=== PATIENT | male | born 1960 ===

== ENCOUNTER → 2020-06-16 14:42 | Outpatient (BNVA) | payer OTHER, SELFPAY | PROVIDERS: Visit Provider Urology | DX: E29.1 Testicular hypofunction (principal); Z71.89 Other specified counseling | CPT/HCPCS: 96372; 99213 ==

== ENCOUNTER → 2020-06-23 12:56 | Outpatient (BNVA) | payer OTHER, SELFPAY | PROVIDERS: Visit Provider Urology | DX: Z76.89 Persons encountering health services in other specified circumstances (principal) ==

== ENCOUNTER → 2020-07-06 08:23 | Outpatient (BNVA) | payer OTHER, SELFPAY | PROVIDERS: Visit Provider Urology | DX: Z76.89 Persons encountering health services in other specified circumstances (principal) ==

== ENCOUNTER → 2020-07-10 14:46 | Outpatient (BNVA) | payer OTHER, SELFPAY | PROVIDERS: Visit Provider Urology | DX: Z76.89 Persons encountering health services in other specified circumstances (principal) | CPT/HCPCS: 99212 ==

== ENCOUNTER → 2020-07-31 08:31 | Outpatient (BNVA) | payer OTHER, SELFPAY | PROVIDERS: PCP Family Medicine; Visit Provider Urology | DX: Z76.89 Persons encountering health services in other specified circumstances (principal) | CPT/HCPCS: 99212 ==

== ENCOUNTER 2020-09-14 09:24 | Outpatient (REF) | payer OTHER, SELFPAY ==
[2020-09-18 10:28] LABS: Testosterone, Total 1350 ng/dL (250-1100)
== END 2020-09-14 09:25 | disposition home or self-care (01) ==
LOC: HO.10HDL 09:24
PROVIDERS: Visit Provider Urology
DX: E29.1 Testicular hypofunction (principal)
CPT/HCPCS: 36415; 84403

== ENCOUNTER → 2020-10-02 08:48 | Outpatient (BNVA) | payer OTHER, SELFPAY | PROVIDERS: PCP Family Medicine; Visit Provider Urology | DX: Z13.89 Encounter for screening for other disorder (principal) | CPT/HCPCS: Q3014 ==

== ENCOUNTER 2020-12-22 08:04 | Outpatient (REF) | payer OTHER, SELFPAY ==
--- NOTE | ~2020-12-22 | XR_ITS ---
EXAMINATION: PRE-MRI ORBITS. CLINICAL INFORMATION: Status post bilateral ear surgery. Rule out foreign body. COMPARISON: None TECHNIQUE: 3 views FINDINGS: There is no radiopaque metallic foreign body seen in the orbits. Bilateral paranasal sinuses and mastoid air cells are well-aerated and clear. No maxillofacial or nasal abnormality seen. XR/XR pre mri screening IMPRESSION: No metallic radiopaque foreign body seen in the orbits.
--- NOTE | ~2020-12-22 | MR_ITS ---
EXAMINATION: MRI OF THE BRAIN WITHOUT CONTRAST CLINICAL INFORMATION: Post concussion syndrome with dizziness and giddiness. COMPARISON: MRI scan of the brain 04/25/2014. MRI scan of the cervical spine 02/16/2013. TECHNIQUE: MRI of the brain was obtained using routine sequences without contrast. FINDINGS: No diffusion abnormalities are identified to suggest an acute or subacute infarct. No mass effect or midline shift is seen. There is mild commensurate prominence the ventricles and sulci consistent with diffuse volume loss. The study redemonstrates multiple areas of increased T2 and place signal in the periventricular and subcortical white matter, in a similar distribution compared to prior imaging. A focus in the mid left centrum semiovale body is less intense compared to prior imaging, but there appears to be new foci in the bilateral basal ganglia. None of these lesions demonstrate restricted diffusion. The corpus callosum has good volume. No extra-axial fluid collections are seen. The brainstem and cerebellum are normal. No pathologic magnetic susceptibility artifact is identified on the gradient refocused acquisition. The craniovertebral junction, marrow signal, and midline structures are normal. The study demonstrates a mildly prominent lymph node in the left neck. There are worsening spondylitic changes in the upper cervical spine with prominent anterior marginal osteophytes at C2-C3 and C3-C4. The major intracranial flow-voids at the level of the [place] are preserved. The dural venous sinus flow-voids are maintained. The mastoid air cells and paranasal sinuses are well-aerated. MR/MR head/brain wo con IMPRESSION: 1. There are no acute bleeds or infarcts. No masses are demonstrated. 2. The study redemonstrates multiple areas of increased T2 and FLAIR signal in the periventricular and subcortical white matter as described above. Some foci are less prominent compared to prior imaging, but this may be due to technical slice selection factors. The findings are most consistent with chronic microvascular ischemic changes, but as previously suggested, demyelination cannot be excluded. 3. There are spondylitic changes in the visualized upper cervical spine.
== END 2020-12-22 08:05 | disposition home or self-care (01) ==
LOC: HO.MRI 08:04
PROVIDERS: Visit Provider Emergency Medicine
DX: F07.81 Postconcussional syndrome (principal); R42 Dizziness and giddiness; Z98.890 Other specified postprocedural states
CPT/HCPCS: 70551

== ENCOUNTER 2021-02-10 07:45 | Outpatient (REF) | payer OTHER, SELFPAY ==
--- NOTE | ~2021-02-10 | XR_ITS ---
EXAMINATION: XR SHOULDER, RIGHT XR ELBOW, RIGHT CLINICAL INFORMATION: Pain. COMPARISON: None TECHNIQUE: Four views right shoulder and 3 views right elbow. FINDINGS: RIGHT ELBOW: There is a large enthesophyte along the olecranon head. No visible acute fracture, dislocation or subluxation seen. No joint effusion seen. RIGHT SHOULDER: There is mild loss of glenohumeral and AC joint space with periarticular spurring. There are small enthesophytes along the lateral acromion. No acute fracture or loose body seen. No soft tissue swelling or calcification seen. XR/XR shoulder RT min 2V IMPRESSION: Large enthesophyte along the olecranon head. No acute fracture or dislocation right elbow. Degenerative changes right glenohumeral joint and AC joint. No acute fracture or loose body seen.
--- NOTE | ~2021-02-10 | XR_ITS ---
EXAMINATION: XR SHOULDER, RIGHT XR ELBOW, RIGHT CLINICAL INFORMATION: Pain. COMPARISON: None TECHNIQUE: Four views right shoulder and 3 views right elbow. FINDINGS: RIGHT ELBOW: There is a large enthesophyte along the olecranon head. No visible acute fracture, dislocation or subluxation seen. No joint effusion seen. RIGHT SHOULDER: There is mild loss of glenohumeral and AC joint space with periarticular spurring. There are small enthesophytes along the lateral acromion. No acute fracture or loose body seen. No soft tissue swelling or calcification seen. XR/XR elbow RT min 3V IMPRESSION: Large enthesophyte along the olecranon head. No acute fracture or dislocation right elbow. Degenerative changes right glenohumeral joint and AC joint. No acute fracture or loose body seen.
== END 2021-02-10 07:46 | disposition home or self-care (01) ==
LOC: HO.XRAY 07:45
PROVIDERS: PCP Family Medicine; Visit Provider Family Medicine
DX: M25.511 Pain in right shoulder (principal); M25.521 Pain in right elbow
CPT/HCPCS: 73030; 73080

== ENCOUNTER → 2021-04-06 10:36 | Outpatient (BNVA) | payer OTHER, SELFPAY | PROVIDERS: Visit Provider Orthopaedic Surgery | DX: M65.342 Trigger finger, left ring finger (principal); M25.642 Stiffness of left hand, not elsewhere classified; E11.9 Type 2 diabetes mellitus without complications; Z79.84 Long term (current) use of oral hypoglycemic drugs | CPT/HCPCS: 99202 ==

== ENCOUNTER 2021-04-08 08:48 | Outpatient (REF) | payer OTHER, SELFPAY ==
[2021-04-08 11:12] LABS: Prostate Specific Antigen 0.52 ng/mL (<0.05-4.0)
[2021-04-13 17:05] LABS: Testosterone, Total 165 ng/dL (250-1100)
== END 2021-04-08 08:49 | disposition home or self-care (01) ==
LOC: HO.10HDL 08:48
PROVIDERS: Visit Provider Urology
DX: Z12.5 Encounter for screening for malignant neoplasm of prostate (principal); C61 Malignant neoplasm of prostate; E29.1 Testicular hypofunction
CPT/HCPCS: 36415; 84153; 84403

== ENCOUNTER → 2021-04-22 08:25 | Outpatient (BNVA) | payer OTHER, SELFPAY | PROVIDERS: Visit Provider Urology | DX: E29.1 Testicular hypofunction (principal); C61 Malignant neoplasm of prostate | CPT/HCPCS: 99212 ==

== ENCOUNTER 2021-08-18 10:53 | Outpatient (REF) | payer OTHER, SELFPAY ==
[2021-08-18 13:32] LABS: Hematocrit 48.1 % (42.0-52.0); Hemoglobin 16.1 g/dl (14.0-18.0); Mean Corpuscular HGB Conc 33.5 g/dl (31.0-36.0); Mean Corpuscular Hemoglobin 30.4 pg (27.0-33.0); Mean Corpuscular Volume 90.8 fL (80.0-98.0); Mean Platelet Volume 10.1 fL (9.4-12.4); Platelet Count 294 X10*3/uL (160-400); Red Cell Distribution Width 12.3 % (11.0-16.0)
[2021-08-18 14:16] LABS: Prostate Specific Antigen 0.84 ng/mL (<0.05-4.0)
[2021-08-24 10:57] LABS: Testosterone, Total 968 ng/dL (250-1100)
== END 2021-08-18 10:54 | disposition home or self-care (01) ==
LOC: HO.10HDL 10:53
PROVIDERS: Visit Provider Urology
DX: C61 Malignant neoplasm of prostate (principal); E29.1 Testicular hypofunction
CPT/HCPCS: 36415; 84153; 84403; 85027

== ENCOUNTER → 2021-08-26 08:14 | Outpatient (BNVA) | payer OTHER, SELFPAY | PROVIDERS: PCP Family Medicine; Visit Provider Urology | DX: E29.1 Testicular hypofunction (principal); C61 Malignant neoplasm of prostate | CPT/HCPCS: 99212 ==

== ENCOUNTER 2021-11-15 16:41 | Outpatient (REF) | payer OTHER, SELFPAY ==
--- NOTE | ~2021-11-15 | XR_ITS ---
EXAMINATION: XR CHEST CLINICAL INFORMATION: Chest pain COMPARISON: Previous chest x-ray December 2017 TECHNIQUE: 2 views of the chest were obtained. FINDINGS: No significant abnormality is noted involving the heart, lungs, mediastinum, bony thorax or soft tissues. XR/XR chest 2V IMPRESSION: Unremarkable examination.
== END 2021-11-15 16:42 | disposition home or self-care (01) ==
LOC: HO.XRAY 16:41
PROVIDERS: PCP Family Medicine; Visit Provider Family Medicine
DX: R07.89 Other chest pain (principal)
CPT/HCPCS: 71046

== ENCOUNTER 2021-12-03 06:13 | Outpatient (REF) | payer OTHER, SELFPAY ==
[2021-12-03 07:26] LABS: Hemoglobin 14.9 g/dl (14.0-18.0); Mean Corpuscular HGB Conc 32.4 g/dl (31.0-36.0); Mean Corpuscular Hemoglobin 29.6 pg (27.0-33.0); Mean Corpuscular Volume 91.3 fL (80.0-98.0); Mean Platelet Volume 9.7 fL (9.4-12.4); Platelet Count 275 X10*3/uL (160-400); Red Blood Count 5.04 X10*6/uL (4.60-5.80); Red Cell Distribution Width 13.4 % (11.0-16.0); White Blood Count 8.1 X10*3/uL (4.8-10.8)
[2021-12-03 07:41] LABS: Estimated Average Glucose 120 mg/dL; Hemoglobin A1c % 5.8 %
[2021-12-03 07:55] LABS: Alanine Aminotransferase 20 U/L (0-40); Albumin Level 4.2 g/dL (3.5-5.0); Alkaline Phosphatase 70 U/L (39-117); Anion Gap 11 (12-20); Aspartate Amino Transferase 13 U/L (5-37); Bilirubin Total 0.7 mg/dL (0.0-1.0); Blood Urea Nitrogen 26 mg/dL (9-16); Calcium 9.9 mg/dL (8.4-10.2); Carbon Dioxide 28 mmol/L (22-29); Chloride 104 mmol/L (96-108); Cholesterol 113 mg/dL; Estimated Glomerular Filt Rate > 60; Glucose Random 108 mg/dL (60-115); HDL Cholesterol 46 mg/dL; LDL Cholesterol Calculated 52 mg/dl; Potassium 4.4 mmol/L (3.3-5.1); Sodium 139 mmol/L (135-145); Total Protein 6.9 g/dL (6.5-8.0); Triglycerides 79 mg/dL
[2021-12-03 08:10] LABS: Thyroid Stimulating Hormone 1.28 uIU/mL (0.32-4.0); Vitamin D 25-OH Total 43.7 ng/mL (>30)
[2021-12-03 08:23] LABS: Prostate Specific Antigen 0.52 ng/mL (<0.05-4.0)
[2021-12-03 13:16] LABS: Microalbum/Creatinine Ratio Ur 17.6 ug/mg cr
== END 2021-12-03 06:14 | disposition home or self-care (01) ==
LOC: HO.LAB 06:13
PROVIDERS: PCP Family Medicine; Visit Provider Family Medicine
DX: Z12.5 Encounter for screening for malignant neoplasm of prostate (principal); R42 Dizziness and giddiness
CPT/HCPCS: 36415; 80053; 80061; 82043; 82306; 83036; 84153; 84443; 85027

== ENCOUNTER 2022-02-15 08:06 | Outpatient (REF) | payer OTHER, SELFPAY ==
[2022-02-15 08:24] LABS: Hemoglobin 16.2 g/dl (14.0-18.0); Mean Corpuscular HGB Conc 33.8 g/dl (31.0-36.0); Mean Corpuscular Hemoglobin 30.7 pg (27.0-33.0); Mean Corpuscular Volume 90.9 fL (80.0-98.0); Mean Platelet Volume 9.9 fL (9.4-12.4); Platelet Count 278 X10*3/uL (160-400); Red Blood Count 5.28 X10*6/uL (4.60-5.80); Red Cell Distribution Width 11.9 % (11.0-16.0); White Blood Count 6.5 X10*3/uL (4.8-10.8)
[2022-02-15 09:06] LABS: Prostate Specific Antigen 0.75 ng/mL (<0.05-4.0)
[2022-02-21 08:03] LABS: Testosterone, Total 136 ng/dL (250-1100)
== END 2022-02-15 08:07 | disposition home or self-care (01) ==
LOC: HO.LAB 08:06
PROVIDERS: PCP Family Medicine; Visit Provider Urology
DX: Z12.5 Encounter for screening for malignant neoplasm of prostate (principal); C61 Malignant neoplasm of prostate; E29.1 Testicular hypofunction
CPT/HCPCS: 36415; 84153; 84403; 85027

== ENCOUNTER → 2022-03-01 08:14 | Outpatient (BNVA) | payer OTHER, SELFPAY | PROVIDERS: PCP Family Medicine; Visit Provider Urology | DX: C61 Malignant neoplasm of prostate (principal); E29.1 Testicular hypofunction | CPT/HCPCS: 51798; 99212 ==

== ENCOUNTER → 2022-03-15 07:10 | Outpatient (REF) | payer OTHER, SELFPAY ==
--- NOTE | 2022-03-15 07:14 | CA_ITS ---
Transthoracic Echocardiogram Patient (Last, First, Middle): Shane Delgado E Gender: Male Date of : 1960 Age: 61 Procedure Date: 03/15/2022 Procedure Type: Transthoracic Echocardiogram Location: OP Height: 170.18 cm Weight: 86.18 kg BSA: 1.98 m2 Heart Rate: bpm BP: 152 / 94 mmHg Translator: JUAN R Referring MD: Patti Beth MD Symptoms: R06.00 DYSPNEA Study Quality: Adequate ECG Rhythm: Sinus Conclusions: - The left ventricular systolic function is normal. The calculated ejection fraction is 56% by biplane method. - The basal inferior segment is hypokinetic. - No obvious valvular pathology seen on this study. Findings Left Ventricle Normal left ventricular cavity size. There is mildly increased left ventricular wall thickness. The left ventricular systolic function is normal. The calculated ejection fraction is 56% by biplane method. Diastolic function is normal for age. There is moderate septal asymmetric hypertrophy. Wall Motion Rest Echo Findings The basal inferior segment is hypokinetic. Right Ventricle Normal right ventricular cavity size and systolic function. Atria Both atria are normal in size. Aortic Valve There is a normal trileaflet aortic valve. There is no aortic valve stenosis. There is no aortic valve regurgitation. Mitral Valve The mitral valve appears normal. There is trace mitral valve regurgitation. There is no mitral valve stenosis. Pulmonic Valve The pulmonic valve is likely normal. Tricuspid Valve Normal tricuspid valve structure. There is trace tricuspid valve regurgitation. Tricuspid regurgitation envelope is inadequate for calculation of right ventricular systolic pressure. Great Vessels The asc aorta is normal in size. Venous The inferior vena cava is normal in size and collapses greater than 50% with inspiration. Pericardium/Pleural There is no evidence of pericardial effusion. Prior Study Comparison No significant change compared to prior study dated: 07/10/2009. Recommendations, Care & Conclusions No obvious valvular pathology seen on this study. Measurements 2D Linear Measurements IVSd: 1.31 0.6-0.9/0.6-1.0 cm LVIDd: 4.13 3.9-5.3/4.2-5.9 cm LVIDd Index: 2.09 2.4-3.2/2.2-3.1 cm/m2 LVIDs: 2.97 2.0-3.6 cm LVPWd: 1.14 0.7-1.1 cm LA Diam: 2.90 2.7-3.8/3.0-4.0 cm LAIDs Index: 1.46 1.5-2.3 cm/m2 LV Mass: 223.02 67-162/88-224 g LV Mass Index: 112.64 43-95/49-115 g/m2 LVOT Diam: 1.80 3.0+(-)1.3 cm 2D Systolic Function EF 4C: 55.30 >55% EF 2C: 55.60 >55% EF BiP: 56.10 >55% Mitral Valve MV Pk E: 0.70 MV PK A: 0.91 MV Decel Time: 180.00 E/A: 0.80 E'Lateral: 7.62 E'Medial: 5.22 E/E' Med: 13.50 E/E' Lat: 9.20 PHT: 53.00 MVA PHT: 4.15 Decel Baca: 3.89 Aortic Valve AoV Pk Power: 1.24 AoV Mn Power: 0.84 AoV VTI: 0.25 AoV Pk Grad: 6.00 Aov Mn Grad: 3.00 JEWEL Cont.VTI: 2.05 LVOT LVOT Pk Power: 1.12 LVOT Mn Power: 0.69 LVOT VTI: 0.20 LVOT Pk Grad: 5.00 LVOT Mn Grad: 2.00 LVOT Diam: 1.80 LVOT Area: 2.54 Diastolic Function MV Pk E: 0.70 MV Pk A: 0.91 E/A: 0.80 E'Medial: 5.22 E/E' Med: 13.50 E' Laterial: 7.62 E/E' Lat: 9.20 Right Ventricle TAPSE (mm): 18.70 TVS' Power: 9.25 Tricuspid Valve RA Press: 3.00 Great Vessels Aorta Sinus of Valsalva: 3.28 2.0-3.[address] Ridge: 2.86 1.7-3.4 cm Ao Asc: 3.50 2.1-3.4 cm Updated in Other Vendor System with Status of Final Edgard Edwards MD electronically signed on 03/15/2022 9:37:51 AM with status of Final
== END ==
LOC: HO.CARD 07:10
PROVIDERS: PCP Family Medicine; Visit Provider Family Medicine
DX: R06.00 Dyspnea, unspecified (principal)
CPT/HCPCS: 93306

== ENCOUNTER 2022-03-16 15:33 | Outpatient (REF) | payer OTHER, SELFPAY ==
--- NOTE | ~2022-03-16 | XR_ITS ---
EXAMINATION: XR SHOULDER, LEFT CLINICAL INFORMATION: Left shoulder pain. COMPARISON: None. TECHNIQUE: AP external rotation, Grashey, scapular Y, and axillary views of the left shoulder. FINDINGS: There is loss of left AC joint space with moderate periarticular spurring along the inferior glenoid. No visible acute fracture, dislocation or subluxation is seen. No soft tissue calcification is seen. XR/XR shoulder LT min 2V IMPRESSION: Moderate periarticular spurring along the inferior glenoid. No visible acute fracture, dislocation or subluxation is seen.
== END 2022-03-16 15:34 | disposition home or self-care (01) ==
LOC: HO.XRAY 15:33
PROVIDERS: PCP Family Medicine; Visit Provider Family Medicine
DX: M25.512 Pain in left shoulder (principal)
CPT/HCPCS: 73030

== ENCOUNTER → 2022-04-11 09:46 | Outpatient (BNVA) | payer OTHER, SELFPAY | PROVIDERS: PCP Family Medicine; Visit Provider Surgery | DX: K62.89 Other specified diseases of anus and rectum (principal) | CPT/HCPCS: 99202 ==

== ENCOUNTER → 2022-06-30 07:46 | Outpatient (BNVA) | payer OTHER, SELFPAY | PROVIDERS: PCP Family Medicine; Referring Provider Family Medicine; Visit Provider Internal Medicine | DX: I25.10 Atherosclerotic heart disease of native coronary artery without angina pectoris (principal); I10 Essential (primary) hypertension; E11.8 Type 2 diabetes mellitus with unspecified complications; E78.5 Hyperlipidemia, unspecified | CPT/HCPCS: 93005; 99202 ==

== ENCOUNTER 2022-08-15 06:18 | Outpatient (REF) | payer OTHER, SELFPAY ==
[2022-08-15 08:01] LABS: Prostate Specific Antigen 1.14 ng/mL (<0.05-4.0)
[2022-08-20 14:28] LABS: Testosterone, Total 1539 ng/dL (250-1100)
== END 2022-08-15 06:19 | disposition home or self-care (01) ==
LOC: HO.LAB 06:18
PROVIDERS: PCP Family Medicine; Visit Provider Urology
DX: Z12.5 Encounter for screening for malignant neoplasm of prostate (principal); C61 Malignant neoplasm of prostate; E29.1 Testicular hypofunction
CPT/HCPCS: 36415; 84153; 84403

== ENCOUNTER → 2022-09-02 14:51 | Outpatient (BNVA) | payer OTHER, SELFPAY | PROVIDERS: PCP Family Medicine; Visit Provider Urology | DX: C61 Malignant neoplasm of prostate (principal); E29.1 Testicular hypofunction; E11.69 Type 2 diabetes mellitus with other specified complication; N52.1 Erectile dysfunction due to diseases classified elsewhere; I10 Essential (primary) hypertension; Z79.899 Other long term (current) drug therapy | CPT/HCPCS: 99212 ==

== ENCOUNTER → 2022-10-18 09:00 | Outpatient (REF) | payer OTHER, SELFPAY ==
--- NOTE | ~2022-10-18 | NM_ITS ---
EXERCISE MYOCARDIAL PERFUSION STUDY INDICATION: Coronary artery disease, assess for ischemia TECHNIQUE: The patient was brought in for an exercise perfusion study on 10/18/2022. Patient performed exercise as per Omar protocol and was injected 30 mCi of sestamibi once target heart rate was achieved. Images were obtained using the SPECT gamma camera interlaced with the gating device. Images were obtained in supine position. Resting perfusion study was performed on 10/19/2022. Patient was administered 30 mCi of sestamibi intravenously at rest. Images were then obtained in supine position. Total DLP 96mGy-cm. Images were processed with the software and compared side to side in short axis, horizontal long axis and vertical long axis views. FINDINGS: Raw images were reviewed. The stress perfusion study showed mildly diminished tracer uptake in the basal part of inferior wall. With CT attenuation correction, improves significantly suggesting diaphragmatic attenuation artifact. The gated study shows normal LV systolic function with calculated LVEF of 74%. LV cavity is normal in size. The gated study shows normal wall thickening and contraction of segments. Resting study shows no significant perfusion abnormality. Gating at rest reveals normal wall motion with ejection fraction at 68%. The findings are consistent with no definite reversible or fixed perfusion abnormality. NM/NM dionte perf SPECT rest & str IMPRESSION: 1. Myocardial perfusion imaging study shows likely normal myocardial perfusion. 2. Gated LVEF is 74% during stress and 68% during rest. 3. Transient ischemic dilatation not present. EKG component of the test reported separately.
--- NOTE | 2022-10-18 09:03 | CA_ITS ---
Acquisition Time: 2022-10-18 09:07:41 Total Exercise Time: 00:07:21 Test Indications: ABN ECHO CHEST PAIN Medications: SEE H Protocol: NADIA Max HR: 142 BPM 89% of Pred: 159 BPM Max BP: 118/078 mmHG Max Work Load: 9.0 METS Exercise stress test with exercise 7 min 21 sec of Nadia protocol, achieving 88% MPHR, with moderate sob, no chest discomfort, without arrythmia, with blunted BP response to exercise according to manual BP readings provideed by medical radiation dosimetrist ( at rest prior to test 118/78, peak exercise 112/64, test end 90/68), without EKG changes meeting criteria for ischemia. Nuclear images pending. Test reviewed with Dr Das Referred By: Edgard Edwards Overread By: LEONID MEEHAN
== END ==
LOC: HO.CARD 09:00
PROVIDERS: PCP Family Medicine; Visit Provider Internal Medicine
DX: R07.2 Precordial pain (principal); I25.10 Atherosclerotic heart disease of native coronary artery without angina pectoris
CPT/HCPCS: 78452; 93017; A9500

== ENCOUNTER 2023-01-06 17:21 | Outpatient (REF) | payer OTHER, SELFPAY ==
--- NOTE | ~2023-01-06 | XR_ITS ---
EXAMINATION: XR TIBIA AND FIBULA, RIGHT CLINICAL INFORMATION: Right leg pain COMPARISON: Right lower leg 01/27/2016 TECHNIQUE: AP and lateral views of the right tibia and fibula were obtained. FINDINGS: There is a oblique lucency seen along lateral malleolus without displacement suspicious for fracture indeterminate age. There is minimal soft tissue swelling. There is medial malleolar spurring. Large enthesophytes are seen along the calcaneal heel and retrocalcaneal. XR/XR tibia fibula RT 2V IMPRESSION: 1. Oblique lucency along the lateral malleolus suspicious for fracture of indeterminate age. There is minimal soft tissue swelling. 2. Large enthesophytes along the calcaneal heel and retrocalcaneal region.
== END 2023-01-06 17:22 | disposition home or self-care (01) ==
LOC: HO.XRAY 17:21
PROVIDERS: Absent Provider Family Medicine; PCP Family Medicine; Visit Provider Internal Medicine
DX: M79.604 Pain in right leg (principal)
CPT/HCPCS: 73590

== ENCOUNTER 2023-02-13 06:31 | Outpatient (REF) | payer OTHER, SELFPAY ==
[2023-02-13 07:31] LABS: Hematocrit 49.8 % (42.0-52.0); Hemoglobin 16.3 g/dl (14.0-18.0); Mean Corpuscular HGB Conc 32.7 g/dl (31.0-36.0); Mean Corpuscular Hemoglobin 30.3 pg (27.0-33.0); Mean Corpuscular Volume 92.6 fL (80.0-98.0); Mean Platelet Volume 9.9 fL (9.4-12.4); Platelet Count 308 X10*3/uL (160-400); Red Blood Count 5.38 X10*6/uL (4.60-5.80); Red Cell Distribution Width 12.5 % (11.0-16.0)
[2023-02-13 08:33] LABS: Prostate Specific Antigen 0.82 ng/mL (<0.05-4.0)
[2023-02-17 14:08] LABS: Testosterone, Total 1903 ng/dL (250-1100)
== END 2023-02-13 06:32 | disposition home or self-care (01) ==
LOC: HO.LAB 06:31
PROVIDERS: PCP Family Medicine; Visit Provider Urology
DX: Z12.5 Encounter for screening for malignant neoplasm of prostate (principal); E29.1 Testicular hypofunction
CPT/HCPCS: 36415; 84153; 84403; 85027

== ENCOUNTER 2023-02-28 07:53 | Outpatient (REF) | payer OTHER, SELFPAY | END 2023-02-28 07:54 | disposition home or self-care (01) | LOC: HO.HOSX 07:53 | PROVIDERS: Visit Provider Physician Assistant | DX: M25.571 Pain in right ankle and joints of right foot (principal) | CPT/HCPCS: 73610; 99202 ==

== ENCOUNTER 2023-03-23 15:02 | Outpatient (AMB) | payer OTHER, SELFPAY ==
--- NOTE | 2023-03-23 15:03 | MHC.OFFVIS ---
Intake Intake Visit Reasons: 6m follow up/labs(set) Intake Note: Patient is present for follow up labs (PSA 0.82) (testosterone 1903) Urology Medications: tamsulosin, testosterone Blood Thinner: none PVR-0mls Theater Manager Required: No Accompanied by: Self / Same As Patient Allergies Penicillins [PENICILLINS] Allergy (Severe, Verified 03/23/23 15:38) RASH Medication List - Last Reconciled 03/23/23 by TERENCE Mckeon-HALLE alcohol swabs (BD Alcohol Swabs) 0 pad topical amlodipine 10 mg PO DAILY blood sugar diagnostic As directed cholecalciferol (vitamin D3) (Vitamin D3) 50 mcg PO DAILY clotrimazole 1% appl topical BID dulaglutide (Trulicity) mg subcut ketoconazole 2% appl topical lancets As directed lisinopril 20 mg PO DAILY lorazepam 0.5 mg PO BEDTIME PRN metformin 500 mg PO montelukast 10 mg PO DAILY needle (disp) 18 G (BD Regular Bevel [place]) As directed pantoprazole 20 mg PO DAILY quetiapine 50 mg PO BEDTIME rosuvastatin 10 mg PO DAILY safety needles As directed-draw up needle syringe with needle (BD Luer-Porfirio Syringe) As directed syringe with needle, safety (BD Eclipse Luer-Porfirio) As directed- for injection IM weekly tamsulosin 0.4 mg PO DAILY testosterone cypionate (Depo-Testosterone) 60 mg (0.3 mL) IM QWEEK 30 days HPI HPI Comments History of Present Illness Details Shane is a pleasant 62 year old male patient of Dr. Llanes. He has a past medical history of hyperlipidemia, hypertension, type 2 diabetes, atherosclerotic cardiovascular disease, hypogonadism, and prostate cancer. He presents to the office today for a follow-up of his hypogonadism and prostate cancer. In discussion with the patient today reports to be doing and feeling well. He reports noting elevated testosterone levels and has since been off of his subcutaneous injections of testosterone for over 1 month. He otherwise denies any issues or concerns at this time. When asked he denies any urinary issues or concerns at this time. He reports to be happy with his current voiding parameters on 0.4 mg of flomax daily. Recent PSA and testosterone results reviewed with the patient today. PSA 0.8 and total testosterone 1903. When asked patient reports to be injecting testosterone weekly. He reports he has reduced to 0.3 cc however continues with elevated testosterone. He reports last injection to be over 5 weeks ago. He reports feeling fatigued and feels testosterone levels are more than likely low at this time. Discussed and stressed at length affects of elevated testosterone on the body. Will continue to hold testosterone and reassess with obtaining testosterone level. When asked he denies urinary urgency, urinary frequency, incontinence, nocturia, hematuria, dysuria, foul smelling urine, changes to urinary stream, flank pain, fever, and or chills. Unable to obtain urine for urinalysis however PVR 0 mL. Prostate cancer Initial diagnosis 2014 Initial therapy external beam radiation Remained at low testosterone following therapy PSA - 02/28 0.7, 03/31 0.5, 08/31 0.8, 03/02 T 136 P 0.7, 09/01 T 1540 P1.2, 03/03 T--1903 P--0.8. Continues with low PSA. This suitable candidate for testosterone replacement Hypogonadism Diagnosed following radiation therapy Initial therapy testosterone injections PFS Medical History Arthritis Bladder outlet obstruction Carpal tunnel syndrome Colon cancer screening Dysphasia Erectile dysfunction HTN (hypertension) Hypogonadism in male Other and unspecified hyperlipidemia Perianal cyst Prostate cancer Rectal pain Type 2 diabetes mellitus with unspecified complications Surgical History History of surgery History of tympanoplasty Hx of carpal tunnel repair Family History Father Prostate cancer Mother Uterine cancer Paternal Grandfather Lung cancer Paternal Grandmother Breast cancer Maternal Grandfather Brain cancer Maternal Grandmother Throat cancer HTN (hypertension) Social History Alcohol intake: never Patient Tobacco Use Status: Never used Tobacco Current occupational status: employed Current occupation: security /left hand Review of Systems Const Reports as per HPI Eyes Reports no additional complaints ENT Reports no additional complaints Card Reports as per HPI Resp Reports no additional complaints GI Reports no additional complaints Reports as per HPI Musc Reports no additional complaints Neuro Reports no additional complaints Psych Reports no additional complaints Endo Reports as per HPI Mike/Lymph Reports no additional complaints Aller/Immun Reports no additional complaints Physical Exam Const General: cooperative, healthy appearing, comfortable, no acute distress, well developed, alert and awake Orientation/consciousness: patient oriented x3 Limitations: no limitations HEENT Head: Yes normal to inspection, Yes normocephalic and Yes atraumatic Ears: hearing grossly normal bilaterally Eyes General: appearance normal, both eyes and all related structures Neck Neck: Yes normal visual inspection and Yes trachea midline Chest Chest palpation & inspection: normal inspection of the chest Resp Effort & Inspection: normal respiratory effort and able to speak in complete sentences Cardio Rate: regular rate GI Inspection: Yes normal to inspection General: Yes no CVA tenderness Back/Spine/Pelvis Back: no CVA tenderness Skin General skin exam: no rashes or lesions noted Neuro General: patient oriented x3 Extrem General: Yes normal to inspection Psych Appearance: grossly normal and well kempt Mental Status: mental status grossly normal Speech and movement: Normal speech and movement present and Clear speech present Affect: normal affect Attitude: cooperative Thought process: Normal thought process present Thought content: Normal thought content present Insight: Good insight present (Psych) Judgement: Good judgement present (Psych) Assessment & Plan Assessment & Plan (1) Elevated testosterone level in male: Code(s): R79.89 - Other specified abnormal findings of blood chemistry (2) Prostate cancer: Code(s): C61 - Malignant neoplasm of prostate (3) Hypogonadism in male: Code(s): E29.1 - Testicular hypofunction Plan Unable to obtain urine for urinalysis however PVR 0. Discussed recent PSA and testosterone levels. Will obtain redraw of testosterone and continue to hold testosterone at this time. Discussed at length affects of elevated testosterone levels on the body. Patient reports to be happy with current voiding parameters on 0.4 mg of Flomax; will continue Flomax as discussed and prescribed. Patient otherwise denies any urinary issues or concerns at this time. Follow-up in 1-2 weeks with lab to be completed prior; or sooner with any issues, concerns, and or questions. Orders: Orders Testosterone, Total Today R79.89 - Other specified abnormal findings of blood chemistry Patient Instructions: The patient had an opportunity to ask questions regarding the treatment plan. All questions were answered. Physical exam, labs, and imaging were discussed and reviewed in detail. As well as risks, benefits, and discussion of treatment choices. No major barriers to understanding were identified. The patient expressed understanding and agreement with the above treatment plan. The patient was made aware they should contact our office by phone for worsening of their current condition, the appearance of new symptoms, or with any questions or concerns. Compliance is encouraged with any medications and follow up testing that is ordered. It is a privilege to be allowed the opportunity to participate in? your urological care.? Again, if you have any questions or concerns If you have any questions or concerns please do not hesitate to contact me. The office is [phone]. This note is constructed using voice recognition software. While every effort has been made to ensure accuracy plier worker errors may have been included. Yours sincerely, PACO Mckeon Coding Level of Care Code Est Pt Level 3 (13773) Diagnoses Elevated testosterone level in male R79.89 Prostate cancer C61 Hypogonadism in male E29.1
== END 2023-03-23 15:47 | disposition home or self-care (01) ==
PROVIDERS: Visit Provider Nurse Practitioner Family
DX: R79.89 Other specified abnormal findings of blood chemistry (principal); C61 Malignant neoplasm of prostate; E29.1 Testicular hypofunction
CPT/HCPCS: 99213

== ENCOUNTER → 2023-03-23 15:02 | Outpatient (BNVA) | payer OTHER, SELFPAY | PROVIDERS: Visit Provider Nurse Practitioner Family | DX: C61 Malignant neoplasm of prostate (principal); E29.1 Testicular hypofunction; R79.89 Other specified abnormal findings of blood chemistry | CPT/HCPCS: 99212 ==

== ENCOUNTER 2023-03-24 06:36 | Outpatient (REF) | payer OTHER, SELFPAY ==
[2023-03-29 13:18] LABS: Testosterone, Total 65 ng/dL (250-1100)
== END 2023-03-24 06:37 | disposition home or self-care (01) ==
LOC: HO.LAB 06:36
PROVIDERS: PCP Family Medicine; Visit Provider Nurse Practitioner Family
DX: R79.89 Other specified abnormal findings of blood chemistry (principal)
CPT/HCPCS: 36415; 84403

== ENCOUNTER 2023-03-31 08:26 | Outpatient (AMB) | payer OTHER, SELFPAY ==
--- NOTE | 2023-03-31 08:27 | A.OFFVIS_ITS ---
Intake Intake Visit Reasons: 1w/labs Intake Note: Patient is present for follow up labs (testosterone 65) Urology Medications: tamsulosin, testosterone Blood Thinner: none Peel Oven Tender Required: No Accompanied by: Self / Same As Patient Allergies Penicillins [PENICILLINS] Allergy (Severe, Verified 03/31/23 09:08) RASH Medication List - Last Reconciled 03/31/23 by TERENCE Mckeon-HALLE alcohol swabs (BD Alcohol Swabs) 0 pad topical amlodipine 10 mg PO DAILY blood sugar diagnostic As directed cholecalciferol (vitamin D3) (Vitamin D3) 50 mcg PO DAILY clotrimazole 1% appl topical BID dulaglutide (Trulicity) mg subcut ketoconazole 2% appl topical lancets As directed lisinopril 20 mg PO DAILY lorazepam 0.5 mg PO BEDTIME PRN metformin 500 mg PO montelukast 10 mg PO DAILY needle (disp) 18 G (BD Regular Bevel [place]) As directed pantoprazole 20 mg PO DAILY quetiapine 50 mg PO BEDTIME rosuvastatin 10 mg PO DAILY safety needles As directed-draw up needle syringe with needle (BD Luer-Porfirio Syringe) As directed syringe with needle, safety (BD Eclipse Luer-Porfirio) As directed- for injection IM weekly tamsulosin 0.4 mg PO DAILY testosterone cypionate (Depo-Testosterone) 60 mg (0.3 mL) IM QWEEK 30 days HPI HPI Comments History of Present Illness Details Shane is a pleasant 63 year old male patient of Dr. Llanes. He has a past medical history of hyperlipidemia, hypertension, type 2 diabetes, atherosclerotic cardiovascular disease, hypogonadism, and prostate cancer. He presents to the office today for a follow-up of his hypogonadism and prostate cancer. In discussion with the patient today reports to be doing and feeling well. Of note, patient was seen approximately 2 weeks ago at which time redraw of testosterone level was ordered and obtained due to extremely elevated testosterone level (03/03--1904). Redraw of testosterone level 04/02--65. Patient is reporting fatigue. He otherwise denies reduce libido, depressed mood, and or increased irritability. He otherwise denies any issues or concerns at this time. When asked he denies any urinary issues or concerns at this time. He reports to be happy with his current voiding parameters on 0.4 mg of flomax daily. When asked he denies urinary urgency, urinary frequency, incontinence, nocturia, hematuria, dysuria, foul smelling urine, changes to urinary stream, flank pain, fever, and or chills. Unable to obtain urine for urinalysis however PVR 0 mL. Unable to provide testosterone injection at today's visit as patient did not b ring medication with him. Discussed other modalities of testosterone due to patient with labile testosterone levels on injection therapy. However, patient wishes to continue with self administration. Discussed at length importance of injecting as prescribed as well as effects of increased testosterone levels on the body and for overall health and wellbeing. Prostate cancer Initial diagnosis 2014 Initial therapy external beam radiation Remained at low testosterone following therapy PSA - 02/28 0.7, 03/31 0.5, 08/31 0.8, 03/02 T 136 P 0.7, 09/01 T 1540 P1.2, 03/03 T-- 1903 P--0.8, 04/02 T--65 Continues with low PSA. This suitable candidate for testosterone replacement Hypogonadism Diagnosed following radiation therapy Initial therapy testosterone injections [facility] Medical History Arthritis Bladder outlet obstruction Carpal tunnel syndrome Colon cancer screening Dysphasia Erectile dysfunction HTN (hypertension) Hypogonadism in male Other and unspecified hyperlipidemia Perianal cyst Prostate cancer Rectal pain Type 2 diabetes mellitus with unspecified complications Surgical History History of surgery History of tympanoplasty Hx of carpal tunnel repair Family History Father Prostate cancer Mother Uterine cancer Paternal Grandfather Lung cancer Paternal Grandmother Breast cancer Maternal Grandfather Brain cancer Maternal Grandmother Throat cancer HTN (hypertension) Social History Alcohol intake: never Patient Tobacco Use Status: Never used Tobacco Current occupational status: employed Current occupation: security /left hand Review of Systems Const Reports as per HPI Eyes Reports no additional complaints ENT Reports no additional complaints Card Reports as per HPI Resp Reports no additional complaints GI Reports no additional complaints Reports as per HPI Musc Reports no additional complaints Neuro Reports no additional complaints Psych Reports no additional complaints Endo Reports as per HPI Mike/Lymph Reports no additional complaints Aller/Immun Reports no additional complaints Physical Exam Const General: cooperative, healthy appearing, comfortable, no acute distress, well developed, alert and awake Orientation/consciousness: patient oriented x3 Limitations: no limitations HEENT Head: Yes normal to inspection, Yes normocephalic and Yes atraumatic Ears: hearing grossly normal bilaterally Eyes General: appearance normal, both eyes and all related structures Neck Neck: Yes normal visual inspection and Yes trachea midline Chest Chest palpation & inspection: normal inspection of the chest Resp Effort & Inspection: normal respiratory effort and able to speak in complete sentences Cardio Rate: regular rate GI Inspection: Yes normal to inspection General: Yes no CVA tenderness Back/Spine/Pelvis Back: no CVA tenderness Skin General skin exam: no rashes or lesions noted Neuro General: patient oriented x3 Extrem General: Yes normal to inspection Psych Appearance: grossly normal and well kempt Mental Status: mental status grossly normal Speech and movement: Normal speech and movement present and Clear speech present Affect: normal affect Attitude: cooperative Thought process: Normal thought process present Thought content: Normal thought content present Insight: Good insight present (Psych) Judgement: Good judgement present (Psych) Assessment & Plan Assessment & Plan (1) Hypogonadism in male: Code(s): E29.1 - Testicular hypofunction (2) Prostate cancer: Code(s): C61 - Malignant neoplasm of prostate Plan Recent Testosterone levels reviewed with the patient today Will schedule for nurse visit for administration of Testosterone as patient did not bring medication with him at todays visit Discussed at length importance of self administering per prescription order Discussed at length affects increased testosterone on the body and overall health and well-being. Will plan for weekly injections x1 month; to provide patient Education/chuy ucation (Will plan to administer 40mg=0.4ml's) Patient denies any urological issues or concerns at this time; continue flomax as discussed and prescribed PSA, CBC, Testosterone, and Free Testosterone in 3 months Follow up in office with provider in 3 months with labs to be completed prior; or sooner with any issues, questions, and or concerns. Orders: Orders Testosterone, Free/Total 3 Months E29.1 - Testicular hypofunction Complete Blood Count no Diff 3 Months E29.1 - Testicular hypofunction Prostate Specific Antigen 3 Months E11.69 - Type 2 diabetes mellitus with other specified complication, N52.1 - Erectile dysfunction due to diseases classified elsewhere Coding Level of Care Code Est Pt Level 3 (25263) Diagnoses Hypogonadism in male E29.1 Prostate cancer C61
== END 2023-03-31 08:50 | disposition home or self-care (01) ==
PROVIDERS: PCP Family Medicine; Visit Provider Nurse Practitioner Family
DX: E29.1 Testicular hypofunction (principal); C61 Malignant neoplasm of prostate
CPT/HCPCS: 99213

== ENCOUNTER → 2023-03-31 08:26 | Outpatient (BNVA) | payer OTHER, SELFPAY | PROVIDERS: PCP Family Medicine; Visit Provider Nurse Practitioner Family | DX: C61 Malignant neoplasm of prostate (principal); E29.1 Testicular hypofunction; E11.69 Type 2 diabetes mellitus with other specified complication; N52.1 Erectile dysfunction due to diseases classified elsewhere | CPT/HCPCS: 99212 ==

== ENCOUNTER 2023-04-07 12:37 | Outpatient (AMB) | payer OTHER, SELFPAY ==
--- NOTE | 2023-04-07 13:07 | AM.OFFVISNUR ---
Intake Intake Visit Reasons: Testosterone injection Allergies Penicillins [PENICILLINS] Allergy (Severe, Verified 03/31/23 09:08) RASH Nursing Note pt able to teach back how to correctly meadure and administer T injection. per Holly cancel next inj appts and keep Oct f/u. Office Meds testosterone cypionate Performing Provider: PACO Mckeon Administered by: Jayla Saul RN on 04/07/23 13:07 Dose Route Admin Location Lot Number Expiration Date NDC Manager [employer] 60 mg subcutaneous RLQ Comments: Lot # and exp date not documented as pt kept vial/box for next injection. Coding Diagnoses Assessment & Plan Assessment & Plan Orders: Orders AMB Testosterone Injection Patient Supplied Today E29.1 - Testicular hypofunction
== END 2023-04-07 13:25 | disposition home or self-care (01) ==
PROVIDERS: PCP Family Medicine; Visit Provider Nurse Practitioner Family
DX: E29.1 Testicular hypofunction (principal)

== ENCOUNTER → 2023-04-07 12:37 | Outpatient (BNVA) | payer OTHER, SELFPAY | PROVIDERS: PCP Family Medicine; Visit Provider Nurse Practitioner Family | DX: E29.1 Testicular hypofunction (principal) | CPT/HCPCS: 96372 ==

== ENCOUNTER 2023-05-01 06:10 | Outpatient (REF) | payer OTHER, SELFPAY ==
[2023-05-01 06:49] LABS: MANUAL DIFF FLAG NO
[2023-05-01 07:26] LABS: Basophils Percent Auto 0.5 % (0-2); Eosinophils Absolute Auto 0.1 X10*3/uL (0.0-0.4); Eosinophils Percent Auto 2.1 % (0-4); Hematocrit 42.8 % (42.0-52.0); Hemoglobin 14.3 g/dl (14.0-18.0); Imm Gran Abs Auto 0.01 X10*3/uL (0.00-0.03); Imm Gran Pct Auto 0.2 % (0.0-0.4); Lymphocytes Absolute Auto 1.9 X10*3/uL (1.2-4.9); Lymphocytes Percent Auto 29.2 % (20-40); Mean Corpuscular HGB Conc 33.4 g/dl (31.0-36.0); Mean Corpuscular Hemoglobin 29.5 pg (27.0-33.0); Mean Corpuscular Volume 88.2 fL (80.0-98.0); Mean Platelet Volume 9.6 fL (9.4-12.4); Monocytes Absolute Auto 0.6 X10*3/uL (0.1-1.2); Neutrophils Absolute Auto 3.9 x10*3/uL (2.0-8.3); Platelet Count 289 X10*3/uL (160-400); Red Blood Count 4.85 X10*6/uL (4.60-5.80); Red Cell Distribution Width 12.5 % (11.0-16.0); White Blood Count 6.5 X10*3/uL (4.8-10.8)
[2023-05-01 07:45] LABS: Alanine Aminotransferase 16 U/L (0-40); Albumin Level 4.3 g/dL (3.5-5.0); Alkaline Phosphatase 77 U/L (39-117); Anion Gap 13 (12-20); Aspartate Amino Transferase 15 U/L (5-37); Bilirubin Total 0.4 mg/dL (0.0-1.0); Blood Urea Nitrogen 18 mg/dL (9-16); Calcium 10.1 mg/dL (8.4-10.2); Carbon Dioxide 28 mmol/L (22-29); Chloride 107 mmol/L (96-108); Cholesterol 102 mg/dL; Estimated Glomerular Filt Rate > 60; Glucose Random 109 mg/dL (60-115); HDL Cholesterol 41 mg/dL; LDL Cholesterol Calculated 46 mg/dl; Potassium 4.7 mmol/L (3.3-5.1); Sodium 143 mmol/L (135-145); Total Protein 7.3 g/dL (6.5-8.0); Triglycerides 77 mg/dL
[2023-05-01 08:02] LABS: HIV AB/AG Nonreactive (Nonreactive); HIV Num 1 0.05 S/CO (0.00-0.99); ~HepC Num1 0.05 S/CO (0.00-0.79); ~Hepatitis C Antibody Nonreactive (Nonreactive)
[2023-05-02 10:44] LABS: Microalbum/Creatinine Ratio Ur 16.5 ug/mg cr (<30)
== END 2023-05-01 06:11 | disposition home or self-care (01) ==
LOC: HO.LAB 06:10
PROVIDERS: PCP Family Medicine; Visit Provider Family Medicine
DX: E11.9 Type 2 diabetes mellitus without complications (principal)
CPT/HCPCS: 36415; 80053; 80061; 82043; 85025; 86803; 87389

== ENCOUNTER 2023-06-08 10:29 | Outpatient (REF) | payer OTHER, SELFPAY ==
[2023-06-08 12:35] LABS: Hematocrit 45.5 % (42.0-52.0); Hemoglobin 14.8 g/dl (14.0-18.0); Mean Corpuscular HGB Conc 32.5 g/dl (31.0-36.0); Mean Corpuscular Hemoglobin 30.6 pg (27.0-33.0); Mean Platelet Volume 10.4 fL (9.4-12.4); Platelet Count 321 X10*3/uL (160-400); Red Blood Count 4.84 X10*6/uL (4.60-5.80); Red Cell Distribution Width 13.3 % (11.0-16.0)
[2023-06-08 13:35] LABS: Prostate Specific Antigen 0.43 ng/mL (<0.05-4.0)
[2023-06-17 14:04] LABS: Testosterone, Free 31.8 pg/mL (35.0-155.0); Testosterone, Total 224 ng/dL (250-1100)
== END 2023-06-08 10:30 | disposition home or self-care (01) ==
LOC: HO.LAB 10:29
PROVIDERS: Visit Provider Nurse Practitioner Family
DX: Z12.5 Encounter for screening for malignant neoplasm of prostate (principal); E29.1 Testicular hypofunction; E11.69 Type 2 diabetes mellitus with other specified complication; N52.1 Erectile dysfunction due to diseases classified elsewhere
CPT/HCPCS: 36415; 84153; 84402; 84403; 85027

== ENCOUNTER 2023-06-30 08:34 | Outpatient (AMB) | payer OTHER, SELFPAY ==
--- NOTE | 2023-06-30 08:42 | A.OFFVIS_ITS ---
Intake Intake Visit Reasons: 3m follow up/labs(set) Intake Note: Patient is present for follow up labs (testosterone 224) (psa 0.43) Urology Medications: tamsulosin, testosterone Blood Thinner: none Financial Planning Assistant Required: No Accompanied by: Self / Same As Patient Allergies Penicillins [PENICILLINS] Allergy (Severe, Verified 06/30/23 09:08) RASH Medication List - Last Reconciled 06/30/23 by TERENCE Mckeon-HALLE alcohol swabs (BD Alcohol Swabs) 0 pad topical amlodipine 10 mg PO DAILY blood sugar diagnostic As directed celecoxib 100 mg PO BID cholecalciferol (vitamin D3) (Vitamin D3) 50 mcg PO DAILY clotrimazole 1% appl topical BID dulaglutide (Trulicity) mg subcut ketoconazole 2% appl topical lancets As directed lisinopril 20 mg PO DAILY lorazepam 0.5 mg PO BEDTIME PRN metformin 500 mg PO montelukast 10 mg PO DAILY needle (disp) 18 G (BD Regular Bevel [place]) As directed pantoprazole 20 mg PO DAILY quetiapine 50 mg PO BEDTIME rosuvastatin 10 mg PO DAILY safety needles As directed-draw up needle syringe with needle (BD Luer-Porfirio Syringe) As directed for weekly injection syringe with needle, safety (BD Eclipse Luer-Porfirio) As directed- for injection IM weekly tamsulosin 0.4 mg PO DAILY testosterone cypionate (Depo-Testosterone) 60 mg (0.3 mL) IM QWEEK 30 days HPI HPI Comments History of Present Illness Details Shane is a pleasant 63 year old male patient of Dr. Llanes. He has a past medical history of hyperlipidemia, hypertension, type 2 diabetes, at herosclerotic cardiovascular disease, hypogonadism, and prostate cancer. He presents to the office today for a follow-up of his hypogonadism and prostate cancer. In discussion with the patient today reports to be doing and feeling well. Of note, patient was seen approximately 3 months ago at which time Education was provided on proper use of testosterone injection therapy. Recent testosterone labs reviewed with the patient today. As noted below. He reports typically injecting testosterone weekly on Fridays. Lab day was on . He discusses wanting to attempt testosterone therapy via gel as he feels it is difficult for him to self administer testosterone. He reports previously living with his daughter who is a nurse and she would assist with hinge acting. He otherwise denies any urinary issues or concerns at this time. He reports to be happy with his current voiding parameters on 0.4 mg of flomax daily. When asked he denies urinary urgency, urinary frequency, incontinence, nocturia, hematuria, dysuria, foul smelling urine, changes to urinary stream, flank pain, fever, and or chills. In office urinalysis results reviewed with the patient today. Prostate cancer Initial diagnosis 2014 Initial therapy external beam radiation Remained at low testosterone following therapy PSA - 02/28 0.7, 03/31 0.5, 08/31 0.8, 03/02 T 136 P 0.7, 09/01 T 1540 P1.2, 03/03 T--1903 P--0.8, 04/02 T--65, 06/03 T--224 P--0.4 Continues with low PSA. This suitable candidate for testosterone replacement Hypogonadism Diagnosed following radiation therapy Initial therapy testosterone injections [facility] Medical History Other and unspecified hyperlipidemia Type 2 diabetes mellitus with unspecified complications Perianal cyst HTN (hypertension) Arthritis Hypogonadism in male Carpal tunnel syndrome Dysphasia Colon cancer screening Rectal pain Prostate cancer Bladder outlet obstruction Erectile dysfunction Surgical History History of surgery History of tympanoplasty Hx of carpal tunnel repair Family History Father Prostate cancer Mother Uterine cancer Paternal Grandfather Lung cancer Paternal Grandmother Breast cancer Maternal Grandfather Brain cancer Maternal Grandmother Throat cancer HTN (hypertension) Social History Alcohol intake: never Patient Tobacco Use Status: Never used Tobacco Current occupational status: employed Current occupation: security /left hand Review of Systems Const Reports as per HPI Eyes Reports no additional complaints ENT Reports no additional complaints Card Reports as per HPI Resp Reports no additional complaints GI Reports no additional complaints Reports as per HPI Musc Reports no additional complaints Neuro Reports no additional complaints Psych Reports no additional complaints Endo Reports as per HPI Mike/Lymph Reports no additional complaints Aller/Immun Reports no additional complaints Physical Exam Const General: cooperative, healthy appearing, comfortable, no acute distress, well developed, alert and awake Orientation/consciousness: patient oriented x3 Limitations: no limitations HEENT Head: Yes normal to inspection, Yes normocephalic and Yes atraumatic Ears: hearing grossly normal bilaterally Eyes General: appearance normal, both eyes and all related structures Neck Neck: Yes normal visual inspection and Yes trachea midline Chest Chest palpation & inspection: normal inspection of the chest Resp Effort & Inspection: normal respiratory effort and able to speak in complete sentences Cardio Rate: regular rate GI Inspection: Yes normal to inspection General: Yes no CVA tenderness Back/Spine/Pelvis Back: no CVA tenderness Skin General skin exam: no rashes or lesions noted Neuro General: patient oriented x3 Extrem General: Yes normal to inspection Psych Appearance: grossly normal and well kempt Mental Status: mental status grossly normal Speech and movement: Normal speech and movement present and Clear speech present Affect: normal affect Attitude: cooperative Thought process: Normal thought process present Thought content: Normal thought content present Insight: Good insight present (Psych) Judgement: Good judgement present (Psych) Results AMB Urinalysis, Automated UA Leukoctes 0 Tereso/uL Last Edit by [employer] on 06/30/23 08:53 UA Nitrite Negative Last Edit by [employer] on 06/30/23 08:53 UA Urobilinogen 0.2 mg/dL Last Edit by [employer] on 06/30/23 08:53 UA Protein 15 mg/dL Last Edit by [employer] on 06/30/23 08:53 UA pH 6.0 Last Edit by [employer] on 06/30/23 08:53 UA Blood 0 Jeffery/uL Last Edit by [employer] on 06/30/23 08:53 UA Specific Russell 1.015 Last Edit by [employer] on 06/30/23 08:53 UA Ketone Negative Last Edit by [employer] on 06/30/23 08:53 UA Bilirubin 0 mg/dL Last Edit by [employer] on 06/30/23 08:53 UA Glucose 0 mg/dL Last Edit by [employer] on 06/30/23 08:53 Results Reviewed Results Reviewed: Laboratory Last Values Urine pH (Auto) 6.0 06/30/23 08:44 Specific Russell (Auto) 1.015 06/30/23 08:44 Urine Protein (Auto) 15 mg/dL 06/30/23 08:44 Glucose (UA)(Auto) 0 mg/dL 06/30/23 08:44 Urine Ketones (Auto) Negative 06/30/23 08:44 Urine Blood (Auto) 0 Jeffery/uL 06/30/23 08:44 Urine Nitrite (Auto) Negative 06/30/23 08:44 Urine Bilirubin (Auto) 0 mg/dL 06/30/23 08:44 Urine Urobilinogen (Auto) 0.2 mg/dL 06/30/23 08:44 Leukocyte Esterase (Auto) 0 Tereso/uL 06/30/23 08:44 Assessment & Plan Assessment & Plan (1) Hypogonadism in male: Code(s): E29.1 - Testicular hypofunction (2) Prostate cancer: Code(s): C61 - Malignant neoplasm of prostate Plan In office urinalysis results reviewed with the patient today; as noted above. Recent testosterone, CBC, and PSA results reviewed with the patient today; as noted above. Stop injectable testosterone therapy. Start testosterone gel as discussed and prescribed. Continue Flomax as prescribed. Patient reports be happy with current voiding parameters. Will obtain testosterone free and total as well as CBC in 3 months. Follow-up in 3 months with labs to be completed prior; or sooner with any issues, concerns, and or questions. Orders: Orders 2 AMB Urinalysis Automated 06/30/23 Z13.9 - Encounter for screening, unspecified Testosterone, Free/Total 3 Months E29.1 - Testicular hypofunction Complete Blood Count no Diff 3 Months E29.1 - Testicular hypofunction Medications: New testosterone apply 2 pumps over max area - alternate shoulders on alternate days 2 pumps topical DAILY 30 days 75 grams 1RF E29.1 - Testicular hypofunction, R79.89 - Other specified abnormal findings of blood chemistry Discontinued testosterone cypionate (Depo-Testosterone) Inject Monday Labs on Discontinued Reason: Duplicate 60 mg (0.3 mL) IM QWEEK 30 days 2 mL 5RF E29.1 - Testicular hypofunction Patient Instructions: The patient had an opportunity to ask questions regarding the treatment plan. All questions were answered. Physical exam, labs, and imaging were discussed and reviewed in detail. As well as risks, benefits, and discussion of treatment choices. No major barriers to understanding were identified. The patient expressed understanding and agreement with the above treatment plan. The patient was made aware they should contact our office by phone for worsening of their current condition, the appearance of new symptoms, or with any questions or concerns. Compliance is encouraged with any medications and follow up testing that is ordered. It is a privilege to be allowed the opportunity to participate in? your urological care.? Again, if you have any questions or concerns If you have any questions or concerns please do not hesitate to contact me. The office is [phone]. This note is constructed using voice recognition software. While every effort has been made to ensure accuracy surveyor oil well directional errors may have been included. Yours sincerely, PACO Mckeon Coding Level of Care Code Est Pt Level 4 (25203) Diagnoses Hypogonadism in male E29.1 Prostate cancer C61
== END 2023-06-30 09:14 | disposition home or self-care (01) ==
PROVIDERS: PCP Family Medicine; Visit Provider Nurse Practitioner Family
DX: E29.1 Testicular hypofunction (principal); C61 Malignant neoplasm of prostate
CPT/HCPCS: 99214

== ENCOUNTER → 2023-06-30 08:34 | Outpatient (BNVA) | payer OTHER, SELFPAY | PROVIDERS: PCP Family Medicine; Visit Provider Nurse Practitioner Family | DX: C61 Malignant neoplasm of prostate (principal); E29.1 Testicular hypofunction; E11.69 Type 2 diabetes mellitus with other specified complication; N52.9 Male erectile dysfunction, unspecified; Z92.3 Personal history of irradiation | CPT/HCPCS: 81003; 99212 ==

== ENCOUNTER 2023-07-18 09:47 | Outpatient (REF) | payer OTHER, SELFPAY ==
--- NOTE | ~2023-07-18 | XR_ITS ---
EXAMINATION: XR CHEST CLINICAL INFORMATION: Right-sided chest pain, anterolateral chest pain Patient states duration: 2 weeks COMPARISON: Chest 11/15/2021 TECHNIQUE: 2 views of the chest were obtained. FINDINGS: No significant abnormality is noted involving the heart, lungs, mediastinum, bony thorax or soft tissues. XR/XR chest 2V IMPRESSION: Unremarkable examination.
== END 2023-07-18 09:48 | disposition home or self-care (01) ==
LOC: HO.HHCX 09:47
PROVIDERS: Visit Provider Emergency Medicine
DX: R07.9 Chest pain, unspecified (principal)
CPT/HCPCS: 71046

== ENCOUNTER 2023-07-18 09:59 | Outpatient (REF) | payer OTHER, SELFPAY ==
[2023-07-18 11:36] LABS: D Dimer High Sensitivity < 150 NG/ML
== END 2023-07-18 10:00 | disposition home or self-care (01) ==
LOC: HO.HHCL 09:59
PROVIDERS: Visit Provider Emergency Medicine
DX: R07.9 Chest pain, unspecified (principal)
CPT/HCPCS: 36415; 85379

== ENCOUNTER 2023-09-12 15:03 | Outpatient (REF) | payer OTHER, SELFPAY ==
[2023-09-12 15:20] LABS: Hematocrit 43.4 % (42.0-52.0); Hemoglobin 14.6 g/dl (14.0-18.0); Mean Corpuscular HGB Conc 33.6 g/dl (31.0-36.0); Mean Corpuscular Hemoglobin 29.6 pg (27.0-33.0); Mean Platelet Volume 9.3 fL (9.4-12.4); Platelet Count 282 X10*3/uL (160-400); Red Blood Count 4.93 X10*6/uL (4.60-5.80); Red Cell Distribution Width 12.4 % (11.0-16.0); White Blood Count 8.2 X10*3/uL (4.8-10.8)
[2023-09-16 09:44] LABS: Testosterone, Free 50.2 pg/mL (35.0-155.0); Testosterone, Total 264 ng/dL (250-1100)
== END 2023-09-12 15:04 | disposition home or self-care (01) ==
LOC: HO.LAB 15:03
PROVIDERS: PCP Family Medicine; Visit Provider Nurse Practitioner Family
DX: E29.1 Testicular hypofunction (principal)
CPT/HCPCS: 36415; 84402; 84403; 85027

== ENCOUNTER 2023-09-21 08:46 | Outpatient (REF) | payer OTHER, SELFPAY ==
--- NOTE | ~2023-09-21 | XR_ITS ---
EXAMINATION: XR ELBOW, LEFT CLINICAL INFORMATION: Elbow pain. COMPARISON: None available. TECHNIQUE: AP, lateral, and oblique views of the left elbow. FINDINGS: Bones have normal alignment. No fracture, subluxation or joint effusion. Prominent triceps insertion enthesophyte of the olecranon. Minimal linear calcification is noted within the distal triceps. Also, enthesophyte formation is noted at the medial humeral epicondyle and in region of capsular attachment to the coronoid process of the ulna. The radiocapitellar and ulnohumeral joint spaces are maintained. No focal soft tissue swelling. No radiographic evidence of olecranon bursitis. XR/XR elbow LT min 3V IMPRESSION: * The left elbow joint spaces are well-preserved. No joint effusion. * There are enthesophytes at the elbow, including a prominent enthesophyte at the triceps insertion. * No acute osseous injury.
== END 2023-09-21 08:47 | disposition home or self-care (01) ==
LOC: HO.XRAY 08:46
PROVIDERS: PCP Family Medicine; Visit Provider Family Medicine
DX: M25.522 Pain in left elbow (principal)
CPT/HCPCS: 73080

== ENCOUNTER 2023-10-02 08:32 | Outpatient (AMB) | payer OTHER, SELFPAY ==
--- NOTE | 2023-10-02 08:46 | A.OFFVIS_ITS ---
Intake Intake Visit Reasons: 3m/labs(set) Intake Note: Patient is present for follow up labs (testosterone 264) (Free testosterone 50.2) Urology Medications: tamsulosin, testosterone Blood Thinner: none Inspector Of Weights And Measures Required: No Accompanied by: Self / Same As Patient Allergies Penicillins [PENICILLINS] Allergy (Severe, Verified 10/02/23 09:18) RASH Medication List - Last Reconciled 10/02/23 by TERENCE Mckeon-BC alcohol swabs (BD Alcohol Swabs) 0 pad topical amlodipine 10 mg PO DAILY blood sugar diagnostic As directed celecoxib 100 mg PO BID cholecalciferol (vitamin D3) (Vitamin D3) 50 mcg PO DAILY clotrimazole 1% appl topical BID dulaglutide (Trulicity) mg subcut ketoconazole 2% appl topical lancets As directed lisinopril 20 mg PO DAILY lorazepam 0.5 mg PO BEDTIME PRN metformin 500 mg PO montelukast 10 mg PO DAILY needle (disp) 18 G (BD Regular Bevel [place]) As directed pantoprazole 20 mg PO DAILY quetiapine 50 mg PO BEDTIME rosuvastatin 10 mg PO DAILY safety needles As directed-draw up needle tamsulosin 0.4 mg PO DAILY testosterone 3 pumps topical DAILY 30 days HPI HPI Comments History of Present Illness Details Shane is a pleasant 63 year old male patient of Dr. lLanes. He has a past medical history of hyperlipidemia, hypertension, type 2 diabetes, atherosclerotic cardiovascular disease, hypogonadism, and prostate cancer. He presents to the office today for a follow-up of his hypogonadism and prostate cancer. In discussion with the patient today reports to be doing and feeling well. Of note, patient was seen approximately 3 months ago at which time the patient was restarted on testosterone therapy however has since switched to gel therapy versus injection therapy as he had been. Recent testosterone and CBC labs were reviewed with the patient today. As noted below. He reports compliance with testosterone gel daily and is utilizing 1 pump per shoulder each day to total 2 pumps per day. He otherwise denies any urinary issues or concerns at this time. He reports to be happy with his current voiding parameters on 0.4 mg of flomax daily. When asked he denies urinary urgency, u rinary frequency, incontinence, nocturia, hematuria, dysuria, foul smelling urine, changes to urinary stream, flank pain, fever, and or chills. Unable to obtain urine for urinalysis today however PVR 0 mL. Prostate cancer Initial diagnosis 2014 Initial therapy external beam radiation Remained at low testosterone following therapy PSA - 02/28 0.7, 03/31 0.5, 08/31 0.8, 03/02 T 136 P 0.7, 09/01 T 1540 P1.2, 03/03 T--1903 P--0.8, 04/02 T--65, 06/03 T--224 P--0.4, 10/04 T--264 CBC -H/H 10/04-- 14.6, 43.4 Continues with low PSA. This suitable candidate for testosterone replacement Hypogonadism Diagnosed following radiation therapy Initial therapy testosterone injections [facility] Medical History Other and unspecified hyperlipidemia Type 2 diabetes mellitus with unspecified complications Perianal cyst HTN (hypertension) Arthritis Hypogonadism in male Carpal tunnel syndrome Dysphasia Colon cancer screening Rectal pain Prostate cancer Bladder outlet obstruction Erectile dysfunction Surgical History History of surgery History of tympanoplasty Hx of carpal tunnel repair Family History Father Prostate cancer Mother Uterine cancer Paternal Grandfather Lung cancer Paternal Grandmother Breast cancer Maternal Grandfather Brain cancer Maternal Grandmother Throat cancer HTN (hypertension) Social History Alcohol intake: never Patient Tobacco Use Status: Never used Tobacco Current occupational status: employed Current occupation: security /left hand Review of Systems Const Reports as per HPI Eyes Reports no additional complaints ENT Reports no additional complaints Card Reports as per HPI Resp Reports no additional complaints GI Reports no additional complaints Reports as per HPI Musc Reports no additional complaints Neuro Reports no additional complaints Psych Reports no additional complaints Endo Reports as per HPI Mike/Lymph Reports no additional complaints Aller/Immun Reports no additional complaints Physical Exam Const General: cooperative, healthy appearing, comfortable, no acute distress, well developed, alert and awake Orientation/consciousness: patient oriented x3 Limitations: no limitations HEENT Head: Yes normal to inspection, Yes normocephalic and Yes atraumatic Ears: hearing grossly normal bilaterally Eyes General: appearance normal, both eyes and all related structures Neck Neck: Yes normal visual inspection and Yes trachea midline Chest Chest palpation & inspection: normal inspection of the chest Resp Effort & Inspection: normal respiratory effort and able to speak in complete sentences Cardio Rate: regular rate GI Inspection: Yes normal to inspection General: Yes no CVA tenderness Back/Spine/Pelvis Back: no CVA tenderness Skin General skin exam: no rashes or lesions noted Neuro General: patient oriented x3 Extrem General: Yes normal to inspection Psych Appearance: grossly normal and well kempt Mental Status: mental status grossly normal Speech and movement: Normal speech and movement present and Clear speech present Affect: normal affect Attitude: cooperative Thought process: Normal thought process present Thought content: Normal thought content present Insight: Good insight present (Psych) Judgement: Good judgement present (Psych) Assessment & Plan Assessment & Plan (1) Hypogonadism in male: Code(s): E29.1 - Testicular hypofunction Plan Unable to obtain urine for urinalysis however PVR 0 mL. Recent CBC and testosterone results reviewed with the patient today; as noted above. Patient currently denies any bothersome urinary issues. Will increase testosterone to 3 pumps daily as discussed and prescribed. Will obtain PSA, CBC, and testosterone in 3 months. He is happy with his current voiding parameters on 0.4 mg of Flomax daily; will continue Follow-up in 3 months with labs to be completed prior; or sooner with any issues, concerns, and or questions. Orders: Orders AMB Urinalysis Automated Today Z13.9 - Encounter for screening, unspecified PSA,Total (Free>4and<10) 3 Months C61 - Malignant neoplasm of prostate Testosterone, Free/Total 3 Months E29.1 - Testicular hypofunction Complete Blood Count no Diff 3 Months E29.1 - Testicular hypofunction Medications: Changed From testosterone apply 2 pumps over max area - alternate shoulders on alternate days 2 pumps topical DAILY 30 days 75 grams 1RF E29.1 - Testicular hypofunction, R79.89 - Other specified abnormal findings of blood chemistry To testosterone apply 3 pumps over max area - alternate shoulders on alternate days 3 pumps topical DAILY 30 days 75 grams 2RF E29.1 - Testicular hypofunction, R79.89 - Other specified abnormal findings of blood chemistry Discontinued syringe with needle, safety (BD Eclipse Luer-Porfirio) Discontinued Reason: Doctor's Order As directed- for injection IM weekly 50 ea 1RF E29.1 - Testicular hypofunction syringe with needle (BD Luer-Porfirio Syringe) Discontinued Reason: Doctor's Order As directed for weekly injection 1 ea 11RF Coding Level of Care Code Est Pt Level 3 (03779) Diagnoses Hypogonadism in male E29.1
== END 2023-10-02 09:12 | disposition home or self-care (01) ==
LOC: HO.HUSH 08:32
PROVIDERS: PCP Family Medicine; Visit Provider Nurse Practitioner Family
DX: E29.1 Testicular hypofunction (principal)
CPT/HCPCS: 99213

== ENCOUNTER → 2023-10-02 08:32 | Outpatient (BNVA) | payer OTHER, SELFPAY | PROVIDERS: PCP Family Medicine; Visit Provider Nurse Practitioner Family | DX: E29.1 Testicular hypofunction (principal) | CPT/HCPCS: 99212 ==

== ENCOUNTER 2023-12-11 16:14 | Outpatient (REF) | payer OTHER, SELFPAY ==
[2023-12-11 17:46] LABS: MANUAL DIFF FLAG NO
[2023-12-11 18:01] LABS: Basophils Percent Auto 0.4 % (0-2); Eosinophils Absolute Auto 0.2 X10*3/uL (0.0-0.4); Eosinophils Percent Auto 1.9 % (0-4); Hematocrit 45.4 % (42.0-52.0); Hemoglobin 15.3 g/dl (14.0-18.0); Imm Gran Abs Auto 0.02 X10*3/uL (0.00-0.03); Imm Gran Pct Auto 0.2 % (0.0-0.4); Lymphocytes Percent Auto 22.7 % (20-40); Mean Corpuscular HGB Conc 33.7 g/dl (31.0-36.0); Mean Corpuscular Hemoglobin 30.5 pg (27.0-33.0); Mean Corpuscular Volume 90.6 fL (80.0-98.0); Monocytes Absolute Auto 0.6 X10*3/uL (0.1-1.2); Monocytes Percent Auto 6.7 % (2-11); Neutrophils Absolute Auto 6.1 x10*3/uL (2.0-8.3); Neutrophils Percent Auto 68.1 % (45-73); Platelet Count 281 X10*3/uL (160-400); Red Blood Count 5.01 X10*6/uL (4.60-5.80); Red Cell Distribution Width 12.4 % (11.0-16.0); White Blood Count 8.9 X10*3/uL (4.8-10.8)
[2023-12-11 18:47] LABS: Alanine Aminotransferase 15 U/L (0-40); Albumin Level 4.5 g/dL (3.5-5.0); Alkaline Phosphatase 99 U/L (39-117); Anion Gap 12 (12-20); Aspartate Amino Transferase 14 U/L (5-37); Bilirubin Total 0.2 mg/dL (0.0-1.0); Blood Urea Nitrogen 23 mg/dL (9-16); Calcium 10.1 mg/dL (8.4-10.2); Carbon Dioxide 24 mmol/L (22-29); Chloride 108 mmol/L (96-108); Estimated Glomerular Filt Rate > 60; Glucose Random 98 mg/dL (60-115); Lipase 29 U/L (8-78); Potassium 3.8 mmol/L (3.3-5.1); Sodium 140 mmol/L (135-145); Total Protein 7.6 g/dL (6.5-8.0)
[2023-12-11 19:15] LABS: PSA,Total (Free>4and<10) 0.57 ng/mL (0.00-4.00)
== END 2023-12-11 16:15 | disposition home or self-care (01) ==
LOC: HO.CHCLDS 16:14
PROVIDERS: Visit Provider Family Medicine
DX: Z12.5 Encounter for screening for malignant neoplasm of prostate (principal); R10.84 Generalized abdominal pain
CPT/HCPCS: 36415; 80053; 83690; 84153; 85025

== ENCOUNTER 2023-12-25 13:01 | Outpatient (REF) | payer OTHER, SELFPAY ==
[2023-12-25 14:09] LABS: Hematocrit 44.4 % (42.0-52.0); Hemoglobin 15.1 g/dl (14.0-18.0); Mean Corpuscular Hemoglobin 30.6 pg (27.0-33.0); Mean Corpuscular Volume 89.9 fL (80.0-98.0); Mean Platelet Volume 9.9 fL (9.4-12.4); Platelet Count 295 X10*3/uL (160-400); Red Blood Count 4.94 X10*6/uL (4.60-5.80); Red Cell Distribution Width 12.2 % (11.0-16.0); White Blood Count 7.7 X10*3/uL (4.8-10.8)
[2023-12-25 15:03] LABS: PSA,Total (Free>4and<10) 0.67 ng/mL (0.00-4.00)
[2023-12-29 16:33] LABS: Testosterone, Free 57.1 pg/mL (35.0-155.0); Testosterone, Total 429 ng/dL (250-1100)
== END 2023-12-25 13:02 | disposition home or self-care (01) ==
LOC: HO.LAB 13:01
PROVIDERS: PCP Family Medicine; Visit Provider Nurse Practitioner Family
DX: E29.1 Testicular hypofunction (principal); C61 Malignant neoplasm of prostate; Z12.5 Encounter for screening for malignant neoplasm of prostate
CPT/HCPCS: 36415; 84153; 84402; 84403; 85027

== ENCOUNTER 2024-01-01 08:17 | Outpatient (AMB) | payer OTHER, SELFPAY ==
--- NOTE | 2024-01-01 08:33 | A.OFFVIS_ITS ---
Intake Visit Reasons: 3m/labs Intake Note: Patient is present for follow up for Hypogonadism and labs Testosterone: 429 PSA: 0.67 Free Testosterone: 57.1 Urology Medications: Testosterone Blood Thinner: none Assistant Passenger Locomotive Engineer Required: No Accompanied by: Self / Same As Patient Allergies Penicillins [PENICILLINS] Allergy (Severe, Verified 01/01/24 22:02) RASH Medication List - Last Reconciled 01/01/24 by TERENCE Mckeon-BC alcohol swabs (BD Alcohol Swabs) 0 pad topical amlodipine 10 mg PO DAILY blood sugar diagnostic As directed celecoxib 100 mg PO BID cholecalciferol (vitamin D3) (Vitamin D3) 50 mcg PO DAILY clotrimazole 1% appl topical BID dulaglutide (Trulicity) mg subcut ketoconazole 2% appl topical lancets As directed lisinopril 20 mg PO DAILY lorazepam 0.5 mg PO BEDTIME PRN metformin 500 mg PO montelukast 10 mg PO DAILY needle (disp) 18 G (BD Regular Bevel [place]) As directed pantoprazole 20 mg PO DAILY quetiapine 50 mg PO BEDTIME rosuvastatin 10 mg PO DAILY safety needles As directed-draw up needle terazosin 5 mg PO BEDTIME 30 days testosterone 3 pumps topical DAILY 30 days HPI Comments Details: Shane is a pleasant 63 year old male patient of Dr. Llanes. He has a past medical history of hyperlipidemia, hypertension, type 2 diabetes, atherosclerotic cardiovascular disease, hypogonadism, and prostate cancer. He presents to the office today for a follow-up of his hypogonadism and prostate ca ncer. In discussion with the patient today reports to be doing and feeling well. Recent PSA, testosterone levels, and H&H results reviewed with the patient today as noted and trended below. He does report noting urinary hesitancy despite compliance with 0.4 mg of Flomax daily. He otherwise denies any other bothersome urinary issues or concerns. Unable to obtain urine for urinalysis today however PVR 0 mL. When asked he does report compliance with testosterone as prescribed. He otherwise offers no other issues or concerns at this time. Prostate cancer Initial diagnosis 2014 Initial therapy external beam radiation Remained at low testosterone following therapy PSA/Testosterone levels: - 02/28 0.7, 03/31 0.5, 08/31 0.8, 03/02 T 136 P 0.7, 09/01 T 1540 P1.2, 03/03 T 1903 P 0.8, 04/02 T 65, 06/03 T 224 P 0.4, 10/04 T 264, 01/02 0.4, 01/02 T 429. CBC -H/H 10/04 14.6 & 43.4, 01/02 15.1 & 44.4 Continues with low PSA. This suitable candidate for testosterone replacement Hypogonadism Diagnosed following radiation therapy Initial therapy testosterone injections PFSH Medical History Other and unspecified hyperlipidemia Type 2 diabetes mellitus with unspecified complications Perianal cyst HTN (hypertension) Arthritis Hypogonadism in male Carpal tunnel syndrome Dysphasia Colon cancer screening Rectal pain Prostate cancer Bladder outlet obstruction Erectile dysfunction Surgical History History of surgery History of tympanoplasty Hx of carpal tunnel repair Family History Father Prostate cancer Mother Uterine cancer Paternal Grandfather Lung cancer Paternal Grandmother Breast cancer Maternal Grandfather Brain cancer Maternal Grandmother Throat cancer HTN (hypertension) Social History Alcohol intake: never Patient Tobacco Use Status: Never used Tobacco Current occupational status: employed Current occupation: security /left hand Review of Systems Const Reports as per HPI Eyes Reports no additional complaints ENT Reports no additional complaints Card Reports as per HPI Resp Reports no additional complaints GI Reports no additional complaints Reports as per HPI Musc Reports no additional complaints Neuro Reports no additional complaints Psych Reports no additional complaints Endo Reports as per HPI Mike/Lymph Reports no additional complaints Aller/Immun Reports no additional complaints Physical Exam Const General: cooperative, healthy appearing, comfortable, no acute distress, well developed, alert and awake Orientation/consciousness: patient oriented x3 Limitations: no limitations HEENT Head: Yes normal to inspection, Yes normocephalic and Yes atraumatic Ears: hearing grossly normal bilaterally Eyes General: appearance normal, both eyes and all related structures Neck Neck: Yes normal visual inspection and Yes trachea midline Chest Chest palpation & inspection: normal inspection of the chest Resp Effort & Inspection: normal respiratory effort and able to speak in complete sentences Cardio Rate: regular rate GI Inspection: Yes normal to inspection General: Yes no CVA tenderness Back/Spine/Pelvis Back: no CVA tenderness Skin General skin exam: no rashes or lesions noted Neuro General: patient oriented x3 Extrem General: Yes normal to inspection Psych Appearance: grossly normal and well kempt Mental Status: mental status grossly normal Speech and movement: Normal speech and movement present and Clear speech present Affect: normal affect Attitude: cooperative Thought process: Normal thought process present Thought content: Normal thought content present Insight: Fair insight present (Psych) Judgement: Fair judgement present (Psych) Assessment & Plan Assessment & Plan (1) Prostate cancer: Code(s): C61 - Malignant neoplasm of prostate Category: Medical (2) Hypogonadism in male: Code(s): E29.1 - Testicular hypofunction Category: Medical Plan Unable to obtain urine for urinalysis however PVR 0 mL. Recent PSA, testosterone levels, and H&H results reviewed with the patient today; as noted above; discussed reassessment of labs in 6 months; labs ordered Stop Flomax. Start terazosin 5 mg at bedtime as discussed and prescribed. Discussed potential for near future in office cystoscopy and or urodynamics for further assessment evaluation. Continue testosterone as discussed and prescribed. Discussed, educated, and stressed the importance of managing diabetes for improvement in lower urinary tract symptoms as well as overall health and well- being. Follow-up in 6-8 weeks to discuss efficacy of terazosin; or sooner with any issues, concerns, and or questions. Orders: Orders AMB Urinalysis Automated Today Z13.9 - Encounter for screening, unspecified Complete Blood Count no Diff 6 Months C61 - Malignant neoplasm of prostate, E29.1 - Testicular hypofunction Prostate Specific Antigen 6 Months C61 - Malignant neoplasm of prostate, E29.1 - Testicular hypofunction Testosterone, Free/Total 6 Months C61 - Malignant neoplasm of prostate, E29.1 - Testicular hypofunction Medications: New terazosin 5 mg PO BEDTIME 30 days 30 caps 1RF N40.1 - Benign prostatic hyperplasia with lower urinary tract symptoms, R35.0 - Frequency of micturition Refilled testosterone apply 3 pumps over max area - alternate shoulders on alternate days 3 pumps topical DAILY 30 days 75 grams 2RF E29.1 - Testicular hypofunction, R79.89 - Other specified abnormal findings of blood chemistry Patient Instructions: The patient had an opportunity to ask questions regarding the treatment plan. All questions were answered. Physical exam, labs, and imaging were discussed and reviewed in detail. As well as risks, benefits, and discussion of treatment choices. No major barriers to understanding were identified. The patient expressed understanding and agreement with the above treatment plan. The patient was made aware they should contact our office by phone for worsening of their current condition, the appearance of new symptoms, or with any questions or concerns. Compliance is encouraged with any medications and follow up testing that is ordered. It is a privilege to be allowed the opportunity to participate in? your urological care.? Again, if you have any questions or concerns If you have any questions or concerns please do not hesitate to contact me. The office is [phone]. This note is constructed using voice recognition software. While every effort has been made to ensure accuracy dance coach errors may have been included. Yours sincerely, TERENCE Mckeon-HALLE
== END 2024-01-01 09:06 | disposition home or self-care (01) ==
PROVIDERS: PCP Family Medicine; Visit Provider Nurse Practitioner Family
DX: C61 Malignant neoplasm of prostate (principal); E29.1 Testicular hypofunction
CPT/HCPCS: 99214

== ENCOUNTER → 2024-01-01 08:17 | Outpatient (BNVA) | payer OTHER, SELFPAY | PROVIDERS: PCP Family Medicine; Visit Provider Nurse Practitioner Family | DX: E29.1 Testicular hypofunction (principal); C61 Malignant neoplasm of prostate; Z79.899 Other long term (current) drug therapy | CPT/HCPCS: 99212 ==

== ENCOUNTER 2024-01-18 14:58 | Outpatient (REF) | payer OTHER, SELFPAY ==
[2024-01-18 18:05] LABS: Anion Gap 14 (12-20); Blood Urea Nitrogen 26 mg/dL (9-16); Calcium 9.9 mg/dL (8.4-10.2); Carbon Dioxide 24 mmol/L (22-29); Chloride 107 mmol/L (96-108); Estimated Glomerular Filt Rate > 60; Glucose Random 98 mg/dL (60-115); Potassium 3.9 mmol/L (3.3-5.1); Sodium 141 mmol/L (135-145)
== END 2024-01-18 14:59 | disposition home or self-care (01) ==
LOC: HO.CHCLDS 14:58
PROVIDERS: Visit Provider Family Medicine
DX: I10 Essential (primary) hypertension (principal)
CPT/HCPCS: 36415; 80048

== ENCOUNTER 2024-02-08 14:29 | Outpatient (AMB) | payer OTHER, SELFPAY ==
--- NOTE | 2024-02-08 14:56 | MHC.OFFVIS ---
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 Patient reports pain in shoulder about a year. States he was seen by his PCP who had injected patient 3 separate occasions, he states last injection provided him with some relief for about 2 months. His pain is present with activity and at night with sleeping on his right side. Denies numbness or tingling. He has tried at home exercises. Finds some relief with ibuprofen however he is unable to keep taking due to his liver. 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 He was seen by his PCP who gave him injection 3 times, with the last injection being in November and providing him relief for about 2 months. He currently states he has pain in his shoulder that is aggravated with activities, heavy lifting and at night with sleeping on his right side. He denies any numbness, tingling, or weakness with lifting heavy objects. He has tried home exercises for his shoulder. He finds some relief with ibuprofen however he is unable to take it due to liver issues. [facility]LY [facility] Medical History Other and unspecified hyperlipidemia Type 2 diabetes mellitus with unspecified complications Perianal cyst HTN (hypertension) Arthritis Hypogonadism in male Carpal tunnel syndrome Dysphasia Colon cancer screening Rectal pain Prostate cancer Bladder outlet obstruction Erectile dysfunction Surgical History History of surgery History of tympanoplasty Hx of carpal tunnel repair Family History Father Prostate cancer Mother Uterine cancer Paternal Grandfather Lung cancer Paternal Grandmother Breast cancer Maternal Grandfather Brain cancer Maternal Grandmother Throat cancer HTN (hypertension) Social History Alcohol intake: never Patient Tobacco Use Status: Never used Tobacco Current occupational status: employed Current occupation: security /left hand Review of Systems Const All systems reviewed & are unremarkable except as noted in HPI and below Physical Exam Vital Signs: BMI result Body Mass Index 29.8 Const General: cooperative, healthy appearing, comfortable, no acute distress, well developed and alert Orientation/consciousness: patient oriented x3 HEENT Head: Yes normal to inspection, Yes normocephalic and Yes atraumatic Eyes General: appearance normal, both eyes and all related structures Resp Effort & Inspection: normal respiratory effort and able to speak in complete sentences Cardio Rate: regular rate Peripheral pulses: Peripheral pulses 2+ throughout GI Palpation (GI): Soft to palpation Skin Lesions: no lesions Rashes: no rashes Neuro General: patient oriented x3 Extrem Other: Right shoulder normal to inspection. Tenderness over the bicipital groove and along the deltoid region of the shoulder. Forward flexion to 175, external rotation to 90, internal rotation to S1. Pain with RTC strength testing.Positive Allison and cross body abduction. NVI. Results Reviewed Results Reviewed: xrays of the right shoulder obtained 02/2021 IMPRESSION: Degenerative changes right glenohumeral joint and AC joint. No acute fracture or loose body seen. Assessment & Plan Assessment & Plan (1) Tendinitis of right rotator cuff: Code(s): M75.81 - Other shoulder lesions, right shoulder Category: Medical Plan Given he has failed multiple steroid injections along with HEP and continues to have limitations with daily activities, An MRI of the right shoulder was ordered to further evaluate the integrity of RTC. I will see him back once the scan is complete. Orders: Orders MR shoulder RT wo con Today M77.8 - Other enthesopathies, not elsewhere classified Patient Instructions: Scribed for Rudy Jiang PA-C, by Edward Dimas medical technician, on 02/08/2024 at 3:00 PM EST.? I, Rudy Jiang PA-C, have personally reviewed and agree with the information entered by the scribe. Coding Level of Care Code Est Pt Level 3 (80002) Diagnoses Tendinitis of right rotator cuff M75.81
[2024-02-08 15:04] VITALS: BMI 29.8
== END 2024-02-08 19:04 | disposition home or self-care (01) ==
PROVIDERS: PCP Family Medicine; Visit Provider Physician Assistant
DX: M75.81 Other shoulder lesions, right shoulder (principal)
CPT/HCPCS: 99213

== ENCOUNTER → 2024-02-08 14:29 | Outpatient (BNVA) | payer OTHER, SELFPAY | PROVIDERS: PCP Family Medicine; Visit Provider Physician Assistant | DX: M75.81 Other shoulder lesions, right shoulder (principal) | CPT/HCPCS: 99212 ==

== ENCOUNTER 2024-02-14 11:48 | Outpatient (AMB) | payer OTHER, SELFPAY ==
--- NOTE | 2024-02-14 11:45 | MHC.OFFVIS ---
Intake Visit Reasons: 6w follow up Intake Note: Patient presents for tele visit follow up on: medication Urology Medications: Testosterone and Terazosin Blood Thinner: none Bottle Tester Required: No Accompanied by: Self / Same As Patient Allergies Penicillins [PENICILLINS] Allergy (Severe, Verified 02/14/24 13:19) RASH Medication List - Last Reconciled 02/14/24 by PACO Mckeon alcohol swabs (BD Alcohol Swabs) 0 pad topical amlodipine 10 mg PO DAILY blood sugar diagnostic As directed celecoxib 100 mg PO BID cholecalciferol (vitamin D3) (Vitamin D3) 50 mcg PO DAILY clotrimazole 1% appl topical BID dulaglutide (Trulicity) mg subcut ketoconazole 2% appl topical lancets As directed lisinopril 20 mg PO DAILY lorazepam 0.5 mg PO BEDTIME PRN metformin 500 mg PO montelukast 10 mg PO DAILY needle (disp) 18 G (BD Regular Bevel [place]) As directed pantoprazole 20 mg PO DAILY quetiapine 50 mg PO BEDTIME rosuvastatin 10 mg PO DAILY safety needles As directed-draw up needle terazosin 5 mg PO BEDTIME 90 days testosterone 3 pumps topical DAILY 30 days HPI Comments Details: Shane is a pleasant 63 year old male patient of Dr. Llanes. He has a past medical history of hyperlipidemia, hypertension, type 2 diabetes, atherosclerotic cardiovascular disease, hypogonadism, and prostate cancer. He is being followed up on today via telehealth. Of note, patient was seen approximately 6 weeks ago at which time his Flomax was discontinued and started on terazosin for reports of increased lower urinary tract symptoms he had been experiencing. In discussion with the patient today he reports significant improvement in these symptoms with 5 mg of terazosin daily. Patient is also on testosterone replacement therapy for history of hypogonadism. However, labs during last office visit were reviewed and stable will continue with 6 month interval monitoring at this time for hypogonadism and history of prostate cancer. He otherwise denies any bothersome urinary issues or concerns. He denies urinary urgency, urinary frequency, incontinence, nocturia, hematuria, dysuria, foul smelling urine, changes to urinary stream, flank pain, fever, and or chills. He is happy with his current voiding parameters. When asked he does report compliance with testosterone as prescribed. He otherwise offers no other issues or concerns at this time. Prostate cancer Initial diagnosis 2014 Initial therapy external beam radiation Remained at low testosterone following therapy PSA/Testosterone levels: 02/28 0.7, 03/31 0.5, 08/31 0.8, 03/02 T 136 P 0.7, 09/01 T 1540 P1.2, 03/03 T 1903 P 0.8, 04/02 T 65, 06/03 T 224 P 0.4, 10/04 T 264, 01/02 0.4, 01/02 T 429. CBC: -H/H 10/04 14.6 & 43.4, 01/02 15.1 & 44.4 Continues with low PSA. This suitable candidate for testosterone replacement Hypogonadism Diagnosed following radiation therapy Initial therapy testosterone injections PFSH Medical History Other and unspecified hyperlipidemia Type 2 diabetes mellitus with unspecified complications Perianal cyst HTN (hypertension) Arthritis Hypogonadism in male Carpal tunnel syndrome Dysphasia Colon cancer screening Rectal pain Prostate cancer Bladder outlet obstruction Erectile dysfunction Surgical History History of surgery History of tympanoplasty Hx of carpal tunnel repair Family History Father Prostate cancer Mother Uterine cancer Paternal Grandfather Lung cancer Paternal Grandmother Breast cancer Maternal Grandfather Brain cancer Maternal Grandmother Throat cancer HTN (hypertension) Social History Alcohol intake: never Patient Tobacco Use Status: Never used Tobacco Current occupational status: employed Current occupation: security /left hand Review of Systems Const Reports as per HPI Eyes Reports no additional complaints ENT Reports no additional complaints Card Reports as per HPI Resp Reports no additional complaints GI Reports no additional complaints Reports as per HPI Musc Reports no additional complaints Neuro Reports no additional complaints Psych Reports no additional complaints Endo Reports as per HPI Mike/Lymph Reports no additional complaints Aller/Immun Reports no additional complaints Physical Exam Const General: cooperative Resp Effort & Inspection: able to speak in complete sentences Psych Speech and movement: Clear speech present Attitude: cooperative Thought process: Normal thought process present Thought content: Normal thought content present Insight: Fair insight present (Psych) Judgement: Fair judgement present (Psych) Telehealth Telehealth Telehealth Platform: [employer] Location of provider rendering services: practice address Location of patient: address on file Patient Identification confirmed using: Name, : Yes Telehealth method: voice only Patient verbally consented to treatment: Yes Patient verbally consented to billing insurance company: Yes Patient informed of any privacy concerns related to visit: Yes Minutes spent on Phone/Video with Pt.: 15 Assessment & Plan Assessment & Plan (1) Urinary hesitancy due to benign prostatic hyperplasia: Code(s): N40.1 - Benign prostatic hyperplasia with lower urinary tract symptoms; R39.11 - Hesitancy of micturition Category: Medical (2) Prostate cancer: Code(s): C61 - Malignant neoplasm of prostate Category: Medical (3) Hypogonadism in male: Code(s): E29.1 - Testicular hypofunction Category: Medical Plan Patient reports be happy with current voiding parameters on 5 mg of terazosin; will continue; refill provided. Patient currently denies any bothersome urinary issues or concerns. Will continue with surveillance monitoring of PSA, CBC, testosterone free and total for history of hypogonadism as well as prostate cancer. Continue testosterone therapy as discussed and prescribed. Will obtain PSA, CBC, testosterone free and total in 6 months. Follow-up in 6 months with labs to be completed prior; or sooner with any issues, concerns, and or questions. Medications: Changed From terazosin 5 mg PO BEDTIME 30 days 30 caps 1RF N40.1 - Benign prostatic hyperplasia with lower urinary tract symptoms, R35.0 - Frequency of micturition To terazosin 5 mg PO BEDTIME 90 days 90 caps 1RF N40.1 - Benign prostatic hyperplasia with lower urinary tract symptoms, R35.0 - Frequency of micturition Patient Instructions: The patient had an opportunity to ask questions regarding the treatment plan. All questions were answered. Physical exam, labs, and imaging were discussed and reviewed in detail. As well as risks, benefits, and discussion of treatment choices. No major barriers to understanding were identified. The patient expressed understanding and agreement with the above treatment plan. The patient was made aware they should contact our office by phone for worsening of their current condition, the appearance of new symptoms, or with any questions or concerns. Compliance is encouraged with any medications and follow up testing that is ordered. It is a privilege to be allowed the opportunity to participate in? your urological care.? Again, if you have any questions or concerns If you have any questions or concerns please do not hesitate to contact me. The office is [phone]. This note is constructed using voice recognition software. While every effort has been made to ensure accuracy back end web developer errors may have been included. Yours sincerely, PACO Mckeon Coding Level of Care Code Tele Est Pt Level 3 (19309) Diagnoses Urinary hesitancy due to benign prostatic hyperplasia N40.1; R39.11 Prostate cancer C61 Hypogonadism in male E29.1
== END 2024-02-14 12:36 | disposition home or self-care (01) ==
LOC: HO.HUSH 11:48
PROVIDERS: PCP Family Medicine; Visit Provider Nurse Practitioner Family
DX: N40.1 Benign prostatic hyperplasia with lower urinary tract symptoms (principal); R39.11 Hesitancy of micturition; C61 Malignant neoplasm of prostate; E29.1 Testicular hypofunction
CPT/HCPCS: 99442

== ENCOUNTER → 2024-02-14 11:48 | Outpatient (BNVA) | payer OTHER, SELFPAY | PROVIDERS: PCP Family Medicine; Visit Provider Nurse Practitioner Family ==

== ENCOUNTER 2024-02-15 07:35 | Outpatient (REF) | payer OTHER, SELFPAY ==
--- NOTE | ~2024-02-15 | CT_ITS ---
EXAMINATION: CT ABDOMEN AND PELVIS WITH CONTRAST CLINICAL INFORMATION: Generalized abdominal pain. COMPARISON: MRI pelvis 07/02/2012 TECHNIQUE: Multidetector volumetric images were obtained from the superior aspect of the liver through the pubic symphysis following administration 85 mL of Omnipaque 350 intravenous contrast. Sagittal and coronal reformatted images were obtained on the technologist's workstation. Oral Contrast: No. This CT examination was performed using dose optimization techniques as appropriate, variously including the following: *Automated exposure control. *Adjustment of mA and/or kV according to patient size (this includes techniques or standardized protocols for targeted exams where dose is matched to indication/reason for exam; i.e. extremities or head). *Use of iterative reconstruction technique. DLP: 478 mGy-cm FINDINGS: LUNG BASES: The visualized lung bases are unremarkable. LIVER, GALLBLADDER, AND BILIARY TREE: The liver is normal in size, shape, and attenuation. No focal hepatic lesion or biliary ductal dilatation is present. The gallbladder is unremarkable with no evidence of radiopaque gallstones, gallbladder wall thickening, or obvious pericholecystic inflammatory changes. PANCREAS: Unremarkable. SPLEEN: Unremarkable. ADRENAL GLANDS: Unremarkable. KIDNEYS AND URETERS: The kidneys are normal in size, shape, and attenuation. Two benign Bosniak class I renal cysts are noted on the right, the largest measuring only 1.3 cm which require no additional imaging or follow-up. No solid renal masses are seen. No hydronephrosis, hydroureter, or calculi seen. No perinephric stranding. BLADDER: Unremarkable. GASTROINTESTINAL TRACT: The small and large bowel are unremarkable. The appendix is unremarkable. ABDOMINAL WALL: No significant hernia is appreciated. LYMPH NODES: Normal. VASCULAR: Unremarkable. PELVIC VISCERA: Mildly prominent prostate. Normal-appearing seminal vesicles. Marked calcification involving the vas deferens. OSSEOUS STRUCTURES: Mild degenerative changes seen involving the spine and hips. CT/CT abdomen pelvis w IV con IMPRESSION: 1. A cause for the patient's generalized abdominal pain has not been found. 2. Incidental note made of mildly prominent prostate and marked calcification of the vas deferens. Fleischner guidelines were followed.
[2024-02-15] MEDS: iohexoL 350 MG/ML 100 ML INFUS..BTL 85 ML IV (10:24)
[2024-02-15] MEDS: Barium Sulfate Oral (Vanilla) 450 ML ORAL.SUSP 900 ML PO (10:25)
== END 2024-02-15 07:36 | disposition home or self-care (01) ==
LOC: HO.CT 07:35
PROVIDERS: PCP Family Medicine; Visit Provider Family Medicine
DX: R10.84 Generalized abdominal pain (principal)
CPT/HCPCS: 74177; Q9967

== ENCOUNTER 2024-03-27 06:35 | Outpatient (REF) | payer OTHER, SELFPAY ==
--- NOTE | ~2024-03-27 | MR_ITS ---
EXAMINATION: MR SHOULDER WITHOUT CONTRAST, RIGHT CLINICAL INFORMATION: Right shoulder pain. COMPARISON: Right shoulder radiographs 02/10/2021. TECHNIQUE: MRI of the shoulder without contrast was performed on a high-field scanner. FINDINGS: ROTATOR CUFF: Intact. Subscapularis tendinosis. No muscle atrophy or fatty infiltration. BICEPS: Normal. CORACOACROMIAL ARCH: The undersurface of the acromion is laterally downsloping with subacromial spurring. Moderate acromioclavicular osteoarthritis. LABRUM/CAPSULE: Ill-defined undersurface tearing of the superior labrum, a portion of which appears to be displaced anteriorly, with tearing extending into the substance of the posterior superior labrum. GLENOHUMERAL JOINT/MARROW: Small joint effusion. Small ganglion or lobulated recess superficial to the superior aspect of the distal subscapularis muscle, adjacent to the scapularis recess. MR/MR shoulder RT wo con IMPRESSION: 1. Laterally downsloping acromion with subacromial spurring. 2. Subscapularis tendinosis. No rotator cuff tear. 3. Moderate acromioclavicular osteoarthritis. 4. Ill-defined undersurface tearing of the superior labrum, a portion of which appears to be displaced anteriorly, with tearing extending into the substance of the posterior superior labrum. 5. Small joint effusion.
== END 2024-03-27 06:36 | disposition home or self-care (01) ==
LOC: HO.MRI 06:35
PROVIDERS: PCP Family Medicine; Visit Provider Physician Assistant
DX: M77.8 Other enthesopathies, not elsewhere classified (principal)
CPT/HCPCS: 73221

== ENCOUNTER 2024-04-24 08:29 | Outpatient (AMB) | payer OTHER, SELFPAY ==
--- NOTE | 2024-04-24 08:39 | A.OFFVIS_ITS ---
Vital Signs 04/24/24 08:42 Height 5 ft 7 in Weight 190 lb BMI 29.8 Intake Visit Reasons: OV- MRI review of right shoulder Intake Note: Ramiro 64 year old male who presents today for an MRI review of right shoulder. Patient reports having increase pain the past couple of days as well as back pain. His current pain level is an 8 out of 10. Allergies Penicillins [PENICILLINS] Allergy (Severe, Verified 04/24/24 08:42) RASH HPI HPI OV- MRI review of right shoulder: Details: 64-year-old male who returns to the office today for an MRI review of right shoulder. He states he has worsened pain in his shoulder for the past couple of days and rates the pain as 8 on the scale of 0-10. He also c/o back pain. He has a history of diabetes. [facility] Medical History Other and unspecified hyperlipidemia Type 2 diabetes mellitus with unspecified complications Perianal cyst HTN (hypertension) Arthritis Hypogonadism in male Carpal tunnel syndrome Dysphasia Colon cancer screening Rectal pain Prostate cancer Bladder outlet obstruction Erectile dysfunction Surgical History History of surgery History of tympanoplasty Hx of carpal tunnel repair Family History Father Prostate cancer Mother Uterine cancer Paternal Grandfather Lung cancer Paternal Grandmother Breast cancer Maternal Grandfather Brain cancer Maternal Grandmother Throat cancer HTN (hypertension) Social History Alcohol intake: never Patient Tobacco Use Status: Never used Tobacco Current occupational status: employed Current occupation: security /left hand Review of Systems Const All systems reviewed & are unremarkable except as noted in HPI and below Physical Exam Vital Signs: BMI result Body Mass Index 29.8 Extrem Other: Right shoulder: Normal to inspection. Tenderness over the bicipital groove and along the deltoid region of the shoulder. Forward flexion to 175, external rotation to 90, internal rotation to S1. 5/5 RTC strength. Positive Allison and O?Vaughn?s. NVI. Office Procedures Joint Injection/Aspiration Joint Injection/Aspiration Primary Site: right shoulder Prep: site was prepped using aseptic technique, ethochloride spray was applied and injection warnings given Injected: 40 mg of, with 8 mL of, 1% plain lidocaine and in the subcromial space Approach Used: posterolateral Procedure: The patient tolerated the procedure well and there was some relief with the local anesthesia Coding 52742 - Glenohumeral/Tronchanteric Bursa/Intraarticular Procedure code (CPT) selection complete Results Reviewed Results Reviewed: /MR shoulder RT wo con 03/27/24 IMPRESSION: 1. Laterally downsloping acromion with subacromial spurring. 2. Subscapularis tendinosis. No rotator cuff tear. 3. Moderate acromioclavicular osteoarthritis. 4. Ill-defined undersurface tearing of the superior labrum, a portion of which appears to be displaced anteriorly, with tearing extending into the substance of the posterior superior labrum. 5. Small joint effusion. Assessment & Plan Assessment & Plan (1) Tendinitis of right rotator cuff: Code(s): M75.81 - Other shoulder lesions, right shoulder Category: Medical Plan We discussed the findings of the MRI- He has had PT x6 weeks without benefit along with injections and continues to have pain. We discussed options today including repeat injection as his pain is primarily subacromial with prox bicep tenderness. The patient did consent to move forward with the right shoulder injection, which was tolerated well. I recommended rest, ice, and elevation and OTC anti-inflammatories as needed for discomfort. We also discussed diabetes and the effect the steroid injection can have on their blood glucose levels; therefore, they will continue to monitor these very closely over the next 72 hours. If there are concerns, they should report to the ED immediately. Patient Instructions: Scribed for Rudy Jiang PA-C, by Edwrad Dimas neuropsychology medical consultant, on 04/24/2024 at 9:30 AM EST.? I, Rudy Jiang PA-C, have personally reviewed and agree with the information entered by the scribe. Coding Level of Care Code Est Pt Level 3 (49275) Diagnoses Tendinitis of right rotator cuff M75.81 CPT Codes Coding - Joint 7: 12428 - Glenohumeral/Tronchanteric Bursa/Intraarticular ([id number])
[2024-04-24 08:42] VITALS: BMI 29.8
== END 2024-04-24 09:31 | disposition home or self-care (01) ==
PROVIDERS: PCP Family Medicine; Visit Provider Physician Assistant
DX: M75.81 Other shoulder lesions, right shoulder (principal)
CPT/HCPCS: 20610; 99213

== ENCOUNTER → 2024-04-24 08:29 | Outpatient (BNVA) | payer OTHER, SELFPAY | PROVIDERS: PCP Family Medicine; Visit Provider Physician Assistant | DX: M75.81 Other shoulder lesions, right shoulder (principal); M25.511 Pain in right shoulder; M54.9 Dorsalgia, unspecified | CPT/HCPCS: 20610; 99212; J1010 ==

== ENCOUNTER 2024-08-03 07:05 | Outpatient (REF) | payer OTHER, SELFPAY ==
[2024-08-03 07:42] LABS: Hematocrit 43.8 % (42.0-52.0); Hemoglobin 14.7 g/dl (14.0-18.0); Mean Corpuscular HGB Conc 33.6 g/dl (31.0-36.0); Mean Corpuscular Hemoglobin 30.3 pg (27.0-33.0); Mean Corpuscular Volume 90.3 fL (80.0-98.0); Mean Platelet Volume 9.6 fL (9.4-12.4); Platelet Count 283 X10*3/uL (160-400); Red Blood Count 4.85 X10*6/uL (4.60-5.80); Red Cell Distribution Width 12.6 % (11.0-16.0); White Blood Count 6.4 X10*3/uL (4.8-10.8)
[2024-08-03 08:46] LABS: Prostate Specific Antigen 0.43 ng/mL (<0.05-4.0)
[2024-08-10 18:42] LABS: Testosterone, Total 420 ng/dL (250-1100)
== END 2024-08-03 07:06 | disposition home or self-care (01) ==
LOC: HO.LAB 07:05
PROVIDERS: PCP Family Medicine; Visit Provider Nurse Practitioner Family
DX: E29.1 Testicular hypofunction (principal); C61 Malignant neoplasm of prostate; Z12.5 Encounter for screening for malignant neoplasm of prostate
CPT/HCPCS: 36415; 84153; 84402; 84403; 85027

== ENCOUNTER 2024-08-19 08:02 | Outpatient (AMB) | payer OTHER, SELFPAY ==
--- NOTE | 2024-08-19 08:28 | A.OFFVIS_ITS ---
Intake Visit Reasons: 6m/LABS/PVR(set) Intake Note: Patient is present for 6M/LABS/PVR Urology Medication:TESTOSTERONE,TERAZOSIN Antibiotic Allergy:PENICILLIN Blood Thinner:NONE TODAY'S PVR:0ML'S Ribbon Winder Required: No Allergies Penicillins [PENICILLINS] Allergy (Severe, Verified 08/19/24 09:03) RASH Medication List - Last Reconciled 08/19/24 by TERENCE Mckeon-HALLE alcohol swabs (BD Alcohol Swabs) 0 pad topical amlodipine 10 mg PO DAILY blood sugar diagnostic As directed celecoxib 100 mg PO BID cholecalciferol (vitamin D3) (Vitamin D3) 50 mcg PO DAILY clotrimazole 1% appl topical BID dulaglutide (Trulicity) mg subcut ketoconazole 2% appl topical lancets As directed lisinopril 20 mg PO DAILY lorazepam 0.5 mg PO BEDTIME PRN metformin 500 mg PO montelukast 10 mg PO DAILY needle (disp) 18 G (BD Regular Bevel Morrison) As directed pantoprazole 20 mg PO DAILY quetiapine 50 mg PO BEDTIME rosuvastatin 10 mg PO DAILY safety needles As directed-draw up needle terazosin 5 mg PO BEDTIME 90 days testosterone 3 pumps topical DAILY 30 days HPI Comments Details: Shane is a pleasant 64 year old male patient of Dr. Llanes. He has a past medical history of hyperlipidemia, hypertension, type 2 diabetes, atherosclerotic cardiovascular disease, hypogonadism, and prostate cancer. He presents to the office today for follow-up of his hypogonadism, prostate cancer, and lower urinary tract symptoms. In discussion with the patient today he reports to be doing and feeling well. He denies any bothersome urinary issues or concerns. He reports be happy with current voiding parameters on 5 mg of terazosin. He reports compliance with testosterone as prescribed. Recent labs were reviewed with the patient today as noted and trended below. Unable to obtain urine for urinalysis today however PVR 0 mL. He denies urinary urgency, urinary frequency, incontinence, nocturia, hematuria, dysuria, foul smelling urine, changes to urinary stream, flank pain, fever, and or chills. He otherwise offers no other issues or concerns at this time. Prostate cancer Initial diagnosis 2014 Initial therapy external beam radiation Remained at low testosterone following therapy PSA/Testosterone levels: 02/28 0.7, 03/31 0.5, 08/31 0.8, 03/02 T 136 P 0.7, 09/01 T 1540 P 1.2, 03/03 T 1903 P 0.8, 04/02 T 65, 06/03 T 224 P 0.4, 10/04 T 264, 01/02 0.4, 01/02 T 429, 08/04 PSA 0.4 T 420 CBC: -H/H 10/04 14.6 & 43.4, 01/02 15.1 & 44.4, 08/04 14.7/43.8 Continues with low PSA. This suitable candidate for testosterone replacement Hypogonadism Diagnosed following radiation therapy Initial therapy testosterone injections PFS Medical History Other and unspecified hyperlipidemia Type 2 diabetes mellitus with unspecified complications Perianal cyst HTN (hypertension) Arthritis Hypogonadism in male Carpal tunnel syndrome Dysphasia Colon cancer screening Rectal pain Prostate cancer Bladder outlet obstruction Erectile dysfunction Surgical History History of surgery History of tympanoplasty Hx of carpal tunnel repair Family History Father Prostate cancer Mother Uterine cancer Paternal Grandfather Lung cancer Paternal Grandmother Breast cancer Maternal Grandfather Brain cancer Maternal Grandmother Throat cancer HTN (hypertension) Social History Alcohol intake: never Patient Tobacco Use Status: Never used Tobacco Current occupational status: employed Current occupation: security /left hand Review of Systems Const Reports as per HPI Eyes Reports no additional complaints ENT Reports no additional complaints Card Reports as per HPI Resp Reports no additional complaints GI Reports no additional complaints Reports as per HPI Musc Reports no additional complaints Neuro Reports no additional complaints Psych Reports no additional complaints Endo Reports as per HPI Mike/Lymph Reports no additional complaints Aller/Immun Reports no additional complaints Physical Exam Const General: cooperative, healthy appearing, comfortable, no acute distress, well developed, alert and awake Orientation/consciousness: patient oriented x3 Limitations: no limitations HEENT Head: Yes normal to inspection, Yes normocephalic and Yes atraumatic Ears: hearing grossly normal bilaterally Eyes General: appearance normal, both eyes and all related structures Neck Neck: Yes normal visual inspection and Yes trachea midline Chest Chest palpation & inspection: normal inspection of the chest Resp Effort & Inspection: normal respiratory effort and able to speak in complete sentences Cardio Rate: regular rate GI Inspection: Yes normal to inspection General: Yes no CVA tenderness Back/Spine/Pelvis Back: no CVA tenderness Skin General skin exam: no rashes or lesions noted Neuro General: patient oriented x3 Extrem General: Yes normal to inspection Psych Appearance: grossly normal and well kempt Mental Status: mental status grossly normal Speech and movement: Normal speech and movement present and Clear speech present Affect: normal affect Attitude: cooperative Thought process: Normal thought process present Thought content: Normal thought content present Insight: Fair insight present (Psych) Judgement: Fair judgement present (Psych) Office Procedures Post Void Residual Post Residual Void Post Void Residual (PVR): 0 91366-Unpt Void Residual by ultrasound Assessment & Plan Assessment & Plan (1) Prostate cancer: Code(s): C61 - Malignant neoplasm of prostate Category: Medical (2) Hypogonadism in male: Code(s): E29.1 - Testicular hypofunction Category: Medical Plan Unable to obtain urine for urinalysis however PVR 0 mL Patient reports be happy with current voiding parameters on 5 mg of terazosin; will continue; refill provided. Patient currently denies any bothersome urinary issues or concerns. Will continue with surveillance monitoring of PSA, CBC, testosterone free and total for history of hypogonadism as well as prostate cancer. Continue testosterone therapy as discussed and prescribed; refill provided Will obtain PSA, CBC, testosterone free and total in 6 months. Follow-up in 6 months with labs to be completed prior; or sooner with any issues, concerns, and or questions. Orders: Orders Testosterone, Free/Total 6 Months C61 - Malignant neoplasm of prostate, E29.1 - Testicular hypofunction Prostate Specific Antigen 6 Months C61 - Malignant neoplasm of prostate, E29.1 - Testicular hypofunction Complete Blood Count no Diff 6 Months E29.1 - Testicular hypofunction Medications: Refilled terazosin 5 mg PO BEDTIME 90 days 90 caps 1RF N40.1 - Benign prostatic hyperplasia with lower urinary tract symptoms, R35.0 - Frequency of micturition testosterone apply 3 pumps over max area - alternate shoulders on alternate days 3 pumps topical DAILY 30 days 75 grams 5RF E29.1 - Testicular hypofunction, R79.89 - Other specified abnormal findings of blood chemistry Patient Instructions: The patient had an opportunity to ask questions regarding the treatment plan. All questions were answered. Physical exam, labs, and imaging were discussed and reviewed in detail. As well as risks, benefits, and discussion of treatment choices. No major barriers to understanding were identified. The patient expressed understanding and agreement with the above treatment plan. The patient was made aware they should contact our office by phone for worsening of their current condition, the appearance of new symptoms, or with any questions or concerns. Compliance is encouraged with any medications and follow up testing that is ordered. It is a privilege to be allowed the opportunity to participate in? your urological care.? Again, if you have any questions or concerns If you have any questions or concerns please do not hesitate to contact me. The office is [phone]. This note is constructed using voice recognition software. While every effort has been made to ensure accuracy trade mark examiner errors may have been included. Yours sincerely, PACO Mckeon Coding Level of Care Code Est Pt Level 3 (88427) Complex EM visit Add On G2211 Diagnoses Prostate cancer C61 Hypogonadism in male E29.1 CPT Codes Post Residual Void - PVR CPT Code: 11653-Nkhh Void Residual by ultrasound ([id number])
== END 2024-08-19 09:01 | disposition home or self-care (01) ==
PROVIDERS: PCP Family Medicine; Visit Provider Nurse Practitioner Family
DX: C61 Malignant neoplasm of prostate (principal); E29.1 Testicular hypofunction
CPT/HCPCS: 99213; G2211

== ENCOUNTER → 2024-08-19 08:02 | Outpatient (BNVA) | payer OTHER, SELFPAY | PROVIDERS: PCP Family Medicine; Visit Provider Nurse Practitioner Family | DX: C61 Malignant neoplasm of prostate (principal); E29.1 Testicular hypofunction | CPT/HCPCS: 51798; 99212 ==

== ENCOUNTER 2024-11-08 07:20 | Outpatient (REF) | payer OTHER, SELFPAY ==
--- OUTSIDE RECORDS SUMMARY | 2024-11-08 07:24 | XMS_ITS | Encounter Summary ---
Author Organization [employer] Address [address] [place] [address] [address] [place] [address] Care Team Providers Care Forging Operator Name Role Phone Patti Beth MD Primary Care Provider [phone] Encounter Details Date Type Department Care Team ([facility] st Contact Info) Description 01/16/2023 Orders Only [facility] MED & PEDS [address] [place], [place] [id number] Elizabeth Rodriguez MD [address] [place] [address] Closed fracture of malleolus of right ankle, initial encounter (Primary Dx) Social History Tobacco Use Types Packs/Day Years Used Date Smoking Tobacco: Never Passive Smoke Exposure: Never Smokeless Tobacco: Never Sex and Gender Information Value Date Recorded Sex Assigned at Male 07/11/2022 10:20 AM EDT Legal Sex Male 10:20 AM EDT Gender Identity Male 07/11/2022 10:20 AM EDT Sexual Orientation Straight 07/11/2022 10 :20 AM EDT COVID-19 Exposure Response Date Recorded In the last 10 days, have yo u been in contact with someone who was confirmed or suspected to have Coronavirus/COVID-19? No / Unsure 01/06/2023 3:08 PM EDT documented as of this encounter Plan of Treatment Not on file documented as of this encounter Visit Diagnoses Diagnosis Closed fracture of malleolus of right ankle, initial encounter- Primary documented in this encounter Care Teams Forging Operator Relationship Specialty Start Date End Date Patti Beth MD [address] [place] [id number] PCP - General Family Medicine 08/26/20 documented as of this encounter
--- OUTSIDE RECORDS SUMMARY | 2024-11-08 07:24 | XMS_ITS | Encounter Summary ---
Author Organization [employer] Address [address] [facility] [address] [place] [address] Care Team Providers Care Manager Helpdesk Name Role Phone Patti Beth MD Primary Care Provider [phone] Encounter Details Date Type Department Care Team (Latest Contact Info) Description 10/10/2024 Travel Social History Tobacco Use Types Packs/Day Years Used Date Smoking Tobacco: Never Passive Smoke Exposure: Never Smokeless Tobacco: Never Depression Answer Date Recorded Patient Health Questionnaire-9 Score 2 02/09/2023 Housing Stability Answer Date Recorded What is your housing situation today? I have jonathancydney collins 06/27/[address] you li ve. Do you have problems with any of the following? None of the above 06/27/2023 Food Insecurity Answer Date Recorded Within the past 12 months, y ou worried that your food would run out before you got money to buy more: Never True 06/27/2023 Within the past 12 months,th e food you bought just didn't last and you didn't have enough money to get more: Never True Transportation Answer Date Recorded In the past 12 months, has l ack of transportation kept you from medical appts, meetings, work or from getting things needed for daily living? No 06/27/2023 Utilities Answer Date Recorded In the past 12 months, has t he electric, gas, oil or water company threatened to shut off services in your home? No 06/27/2023 Depression Answer Date Recorded Patient Health Questionnaire-2 Score 1 02/09/2023 Sex and Gender Information Value Date Recorded Sex Assigned at Male 07/11/2022 10:20 AM EDT Legal Sex Male 10:20 AM EDT Gender Identity Male 07/11/2022 10:20 AM EDT Sexual Orientation Straight 07/11/2022 10 :20 AM EDT documented as of this encounter Plan of Treatment Not on file documented as of this encounter Visit Diagnoses Not on filedocumented in this encounter Additional Health Concerns Assessment Noted Time PHQ-9 Depression Total Score: 2 02/10/20 23 8:57 AM EDT documented as of this encounter Care Teams Manager Helpdesk Relationship Specialty Start Date End Date Patti Beth MD [address] [place] [id number] PCP - General Family Medicine 08/26/20 documented as of this encounter
--- OUTSIDE RECORDS SUMMARY | 2024-11-08 07:24 | XMS_ITS | Encounter Summary ---
Author Organization [employer] Address [address] [facility] [address] [place] [address] Care Team Providers Care Director Data Name Role Phone Patti Beth MD Primary Care Provider [phone] Encounter Details Date Type Department Care Team ([facility] st Contact Info) Description 05/06/2024 Orders Only [facility] CH[facility] MED & PEDS [address] [place], [place] [phone] ProviderVladimir MD Social History Tobacco Use Types Packs/Day Years Used Date Smoking Tobacco: Never Passive Smoke Exposure: Never Smokeless Tobacco: Never Depression Answer Date Recorded Patient Health Questionnaire-9 Score 2 02/09/2023 Housing Stability Answer Date Recorded What is your housing situation today? I have jonathan collins 06/27/[address] you [...] Procedure Name Priority Date/Time Associated Diagnosis Comments HEMOGLOBIN A1C Routine 04/23/2024 12:36 PM EDT documented in this encounter Results * Hemoglobin A1c (04/23/2024 12:36 PM EDT) Blood Venous blood specimen / Unknown us Historical Provider LAB BLOOD ORDERABLES Anna l Result documented in this encounter Visit Diagnoses Not on filedocumented in this encounter Additional Health Concerns Assessment Noted Time PHQ-9 Depression Total Score: 2 02/10/20 23 8:57 AM EDT documented as of this encounter Care Teams Director Data Relationship Specialty Start Date End Date Patti Beth MD [address] [place] [address] PCP - General Family Medicine 08/26/20 documented as of this encounter
--- OUTSIDE RECORDS SUMMARY | 2024-11-08 07:24 | XMS_ITS | Clinical Summary ---
Author Organization [employer] Address [address] [place] [address] 7 [place] [address] Care Team Providers Care Senior Microstrategy Developer Name Role Phone Patti Beth MD Primary Care Provider [phone] Allergies Active Allergy Reactions Criticality Noted Date Comments Atorvastatin Dizziness 01/08/2021 Penicillins Hives Other reaction(s): unspecified Medications Alcohol Swabs (B-D SINGLE USE SWABS REGULAR) pads USE 1 SWAB TOPICALLY DIRECTED 022 Active Diclofenac Sodium 1 % gel APPLY 2 GRAM TO THE AFFECTED AREA FOUR TIMES DAILY 022 Active FreeStyle lancets USE SIX TIMES A DAY 022 Active LORazepam (Ativan) 0.5 MG tablet Take 0.5 mg by mouth if needed at bedtime. 023 Active BD Disp Elrosa 18G X 1-09/12 misc USE DIRECTED TO DRAW UP TESTOSTERONE 023 Active B-D 3CC LUER-JOHN SYR 22GX1 22G X 1 3 ML misc DIRECTED FOR INJECTION IN THE MUSCLE WEEKLY 023 Active hydrocortisone 2.5 % cream Apply topically 2 times daily. 60 g 2 023 Active ketoconazole (NIZOral) 2 % shampoo Apply topically 2 (two) times a week. 120 mL 2 023 Active Testosterone 1.62 % gel 023 Active QUEtiapine (SEROquel) 50 MG tablet Take 1 tablet (50 mg) by mouth at bedtime. 90 tablet 1 024 Active FREESTYLE LITE test stripIndications: Type 2 diabetes mellitus without complication, without long-term current use of insulin ([facility]) DIRECTED TO TEST BLOOD SUGAR TWICE DAILY 100 strip 5 Active metFORMIN (Glucophage) 500 MG tabletIndications :Type 2 diabetes mellitus with hyperglycemia, unspecified whether terminal worker insulin use ([facility]) TAKE 1 TABLET(500 MG) BY MOUTH IN THE MORNING 90 tablet 1 Active cholecalciferol VITAMIN D (Vitamin D-3) 50 MCG (1999 UT) tablet TAKE 1 TABLET BY MOUTH EVERY MORNING 120 tablet 4 Active cholecalciferol (Vitamin D-3) 50 MCG (1999 UT) tablet TAKE 1 TABLET BY MOUTH EVERY MORNING 120 tablet 4 Active amLODIPine (Norvasc) 10 MG tabletIndications :Hypertension, unspecified type TAKE 1 TABLET(10 MG) BY MOUTH IN THE MORNING 90 tablet 1 Active rosuvastatin (Crestor) 10 MG tabletIndications :Mixed hyperlipidemia TAKE 1 TABLET BY MOUTH EVERY DAY 90 tablet 4 Active ketoconazole (NIZOral) 2 % cream APPLY TOPICALLY TO THE AFFECTED AREA TWICE DAILY 60 g 2 Active montelukast (Singulair) 10 MG tablet TAKE 1 TABLET(10 MG) BY MOUTH AT BEDTIME 90 tablet 1 Active pantoprazole (ProtoNix) 20 MG EC tabletIndications :Gastroesophageal reflux disease, unspecified whether esophagitis present TAKE 1 TABLET BY MOUTH EVERY DAY 90 tablet 1 Active Dulaglutide (Trulicity) 0.75 MG/0.5ML solution auto-injector ADMINISTER 0.75 MG UNDER THE SKIN 1 TIME EVERY WEEK 2 mL 5 Active celecoxib (CeleBREX) 100 MG capsuleIndication s:Right leg pain TAKE 1 CAPSULE(100 MG) BY MOUTH TWICE DAILY 180 capsule 1 Active lisinopril 20 MG tablet TAKE 1 TABLET(20 MG) BY MOUTH IN THE MORNING 90 tablet 1 Active terazosin (Hytrin) 5 MG capsule Take 5 mg by mouth at bedtime. Active lisinopril 20 MG tablet TAKE 1 TABLET(20 MG) BY MOUTH IN THE MORNING 90 tablet 1 025 2024 Discontinued Active Problems Problem Noted Date Diagnosed Date Generalized abdominal pain 12/11/2023 Assessment & Plan (12/11/2023 9:00 PM EDT): Plan to perform a CT Abdomen Pelvis to identity any anatomical causes of pain. Labs: CBC, CMP, Lipase, PSA Chronic elbow pain, left 09/19/2023 Assessment & Plan (11/09/2023 4:47 PM EST): Patient reports persistent symptoms, no improvement, declined PT, send to ortho. Assessment & Plan (09/19/2023 4:19 PM EST): Left lateral epicondyle pain, send X ray Type 2 diabetes mellitus wit h hyperglycemia, unspecified whether chcf insulin use 09/19/2023 Assessment & Plan (09/19/2023 4:35 PM EST): Lab Results Component Value Date HGBA1C 5.9 09/19/2023 Controlled. F/up in 6 months. Closed fracture of malleolus of right ankle with routine healing 02/09/2023 Assessment & Plan (02/09/2023 12:33 PM EDT): Patient was seen around 1 month ago by my collegue and was referred to orthopedics due to lucency in his Xray concerning for lateral malleolus fracture, requesting [place] to assist with an appt CEDRIC, ankle fracture support brace was ordered Degeneration of lumbar intervertebral disc 10/20 Chronic right shoulder pain 10/20/2022 Assessment & Plan (11/09/2023 4:47 PM EST): -Patient tolerated R shoulder injection procedure well, with no complications. -Advised patient to notify office of any side effects post-procedure. Assessment & Plan (06/08/2023 10:05 AM EDT): -Patient tolerated R shoulder injection procedure well, with no complications. -Advised patient to notify office of any side effects post-procedure. Assessment & Plan (10/20/2022 8:59 PM EST): Reviewed X ray, patient with previous injection in 2020. Tolerated procedure well. Discussed reasons to rtc and to call. Bladder outlet obstruction 03/17/2020 Hypogonadism in male 12/30/2019 Erectile dysfunction 12/30/2019 Hypertension 11/12/2018 Assessment & Plan (12/11/2023 9:00 PM EDT): Controlled: Continue same treatment regimen. Assessment & Plan (09/19/2023 4:35 PM EST): F/up in 4 month. Controlled. Assessment & Plan (02/09/2023 12:34 PM EDT): Controlled continue current meds f/up 4 mo Type 2 diabetes mellitus 11/12/2018 Assessment & Plan (12/11/2023 9:02 PM EDT): Controlled: Continue with treatment regimen. Reviewed labs/wt: results were normal Labs: glucose, HGB A1C Assessment & Plan (06/08/2023 10:07 AM EDT): -Glucose levels controlled. Complaints of lost of appetite. -Reviewed labs/wt: results were normal. Assessment & Plan (04/27/2023 3:16 PM EDT): Controlled. POC a1c 6.3%. Glucose at time of visit with a reading of 150 mg/dL. Continue current regimen. Will follow up in 6 months and send labs to check levels. Assessment & Plan (02/09/2023 11:05 AM EDT): Lab Results Component Value Date HGBA1C 6.4 (A) 02/09/2023 Controlled a1c, but elevated postprandials, will restart trulicity. F/u in 3 months. Pt in the past did have an episode of hypoglycemia will discontinue trulicity if it recurs. Obstructive sleep apnea syndrome 05/23/2016 Hyperlipidemia 05/21/2013 Malignant tumor of prostate 03/13/2012 Backache 01/26/2012 Assessment & Plan (06/08/2023 10:06 AM EDT): -Patient still complaints of back pain will be prescribed pain medication. -Recommended patient to do physical therapy: patient denied. Gastroesophageal reflux disease 01/26/2012 Encounters Date Type Department Care Team Description 11/06/2024 10:15 AM EST Office Visit [facility] [address] [place] [address] Lamar Kc MD Primary hypertension (Primary Dx); Type 2 diabetes mellitus without complication, without long-term current use of insulin ([facility]); Dietary counseling; Exercise counseling; Malignant tumor of prostate ([facility]) 11/06/2024 Travel 10/28/2024 Refill [facility] [address] [place] [address] Patti Beth MD 10/10/2024 Travel 09/19/2024 Refill [facility] [address] [place] [address] Patti Beth MD 09/08/2024 Refill [facility] [address] [place] [address] Patti Beth MD Right leg pain 08/17/2024 Refill [facility] [address] [place] [address] Patti Beth MD from Last 3 Months Immunizations Name Administration Dates Next Due Hep B, adult 07/17/2017 Influenza injectable quadriv alent IIV4 with preservative 07/17/2017 Influenza, Split (incl. purified surface antigen ) 06/18/2012 Pneumococcal Polysaccharide PPSV23 06/18/2012 TD (adult), 2 Lf tetanus tox oid, preservative free, adsorbed 07/25/2022 Tdap 02/02/2022,06/18/2012 Social History Tobacco Use Types Packs/Day Years Used Date Smoking Tobacco: Never Passive Smoke Exposure: Never Smokeless Tobacco: Never Tobacco Cessation:Counseling Given: Not Answered Depression Answer Date Recorded Patient Health Questionnaire-9 Score 0 11/06/2024 Patient Health Questionnaire-9 Score 0 11/06/2024 Last PHQ-9: Questionnaire Data Not on file 0 11/06/2024 Housing Stability Answer Date Recorded What is your housing situation today? I have jonathan collins 11/06/[address] you li ve. Do you have problems with any of the following? None of the above 11/06/2024 Food Insecurity Answer Date Recorded Within the past 12 months, y ou worried that your food would run out before you got money to buy more: Never True 11/06/2024 Within the past 12 months,th e food you bought just didn't last and you didn't have enough money to get more: Never True Transportation Answer Date Recorded In the past 12 months, has l ack of transportation kept you from medical appts, meetings, work or from getting things needed for daily living? No 11/06/2024 Utilities Answer Date Recorded In the past 12 months, has t he electric, gas, oil or water company threatened to shut off services in your home? No 11/06/2024 Depression Answer Date Recorded Patient Health Questionnaire-2 Score 0 11/06/2024 Internet Access Answer Date Recorded Internet Access Q1 Yes 11/06/2024 Internet Access Q2 Not on file 11/06/2024 Sex and Gender Information Value Date Recorded Sex Assigned at Male 07/11/2022 10:20 AM EDT Legal Sex Male 10:20 AM EDT Gender Identity Male 07/11/2022 10:20 AM EDT Sexual Orientation Straight 07/11/2022 10 :20 AM EDT Last Filed Vital Signs Vital Sign Reading Time Taken Comments Blood Pressure 122/77 11/06/2024 9:43 AM EST Pulse 82 11/06/2024 9:43 AM EST Temperature 36.4 ??C (97.6 ??F) 11/06/2024 9:43 AM ES T Respiratory Rate 20 11/06/2024 9:43 AM EST Oxygen Saturation 98% 11/06/2024 9:43 AM EST Inhaled Oxygen Concentration - - Weight 88 kg (194 lb) 11/06/2024 9:43 AM EST Height 171 cm (5' 7.32 ) 11/06/2024 9:43 AM EST Body Mass Index 30.09 11/06/2024 9:43 AM EST Plan of Treatment Health Maintenance Due Date Last Done Comments CT Colonography 1961 Colonoscopy 1961 FIT 1961 FOBT 1961 Sigmoidoscopy 1961 Eye Exam 1971 Zoster Vaccines (1 of 2) 2011 Pneumococcal Vaccine: 50+ Years (2 of 2 - PCV) 06/18/2013 06/18/2012 Hepatitis B Vaccines (2 of 3 - 19+ 3-dose series) 08/14/2017 07/17/2017 Diabetes: Foot Exam 04/27/2024 04/27/2023, 04/27/2023, 04/27/2023, Additional history exists Diabetes: Urine Protein Screening 05/01/2024 05/01/2023, 12/03/2021, 09/24/2019 Lipid Panel 05/01/2024 05/01/2023, 08/25/2020 COVID-19 Vaccine ( season) 2024 06/05/2021, 05/15/2021 Influenza Vaccine (#1) 2024 07/17/2017, 2011 Tobacco Screening 12/10/2024 12/11/2023 Diabetes: Hemoglobin A1C 05/06/2025 025, 04/23/2024, 12/11/2023, Additional history exists Alcohol/Substance Use Screening 11/06/2025 11/06/2024 Depression Screening 11/06/2025 11/06/2024, 11/06/19 25 SDOH Screening 11/06/2025 11/06/2024 Colorectal Cancer Screening 06/16/2026 FIT DNA/Cologuard 06/16/2026 06/16/2023 DTaP/Tdap/Td Vaccines (4 - Td or Tdap) 07/25/2032 07/25/2022, 02/02/2022, 06/18/2012 RSV Patients and Patients Aged 60 years or older (1 - 1-dose 75+ series) 2036 HIV Screening Completed 05/01/2023 Hepatitis C Screening Completed 05/01/2023 HIB Vaccines Aged Out No longer eligi ble based on patient's age to complete this topic HPV Vaccines Aged Out No longer eligi ble based on patient's age to complete this topic Hepatitis A Vaccines Aged Out No long er eligible based on patient's age to complete this topic IPV Vaccines Aged Out No longer eligi ble based on patient's age to complete this topic Meningococcal Vaccine Aged Out No john dimitri eligible based on patient's age to complete this topic RSV under 20 months Aged Out No longe r eligible based on patient's age to complete this topic Rotavirus Vaccines Aged Out No longer eligible based on patient's age to complete this topic Procedures Procedure Name Priority Date/Time Associated Diagnosis Comments POCT GLUCOSE Routine 11/06/2024 9:51 AM EST Type 2 diabetes mellitus without complication, without long-term current use of insulin (CMS/HCC) POCT GLYCATED HEMOGLOBIN, TOTAL Routine 11/06/2024 9:50 AM EST Type 2 diabetes mellitus without complication, without long-term current use of insulin (CMS/HCC) LAB COLOGUARD?? COLON CANCER SCREEN Routine 06/16/2023 9:59 AM EDT Colon cancer screening ALBUMIN, RANDOM URINE W/CREATININE Routine 05/01/2023 9:00 PM EDT Type 2 diabetes mellitus without complication, without long-term current use of insulin (CMS/HCC) HEPATITIS C ANTIBODY Routine 05/01/2023 6:40 AM EDT Encounter for health-related screening HIV ANTIBODY/ANTIGEN ([place] D[facility]) Routine 05/01/2023 6:40 AM EDT LIPID PANEL, STANDARD Routine 05/01/2023 6:40 AM EDT Type 2 diabetes mellitus without complication, without long-term current use of insulin (CMS/HCC) HP LINK DIABETIC FOOT EXAM Routine 04/27/2023 from Last 3 Months or Most Recently Relevant to Health Maintenance Results * (ABNORMAL) POCT Glucose (11/06/2024 9:51 AM EST) Glucose Blood, POC 242(A) 60 - 200 mg/dL [employer] Lot # [id number] Lot# Expiration Date Blood Capillary blood specimen / Unknown 11/06/2024 9:51 AM EST us Lamar Kc MD POINT OF CARE TEST ENTER/EDIT ORDERABLES Final Result * (ABNORMAL) POCT HGB A1C (11/06/2024 9:50 AM EST) Hemoglobin A1C 6.4(A) 4.0 - 6.0 % [employer] Media Lot # [id number] Lot# Expiration Date [id number] Blood 11/06/2024 9:50 AM EST Lamar Kc MD POINT OF CARE TEST ENTER/EDIT ORDERABLES Final Result * Cologuard?? colon cancer screening (06/16/2023 9:59 AM EDT) Cologuard Result Negative Negative 06/24/20 1:41 AM EDT [employer] (CLIA #:[id number]) Comment: NEGATIVE TEST RESULT. A negative Cologuard result indicates a low likelihood that a colorectal cancer (CRC) or advanced adenoma (adenomatous polyps with more advanced pre-malignant features) ??is present. The chance that a person with a negative Cologuard test has a colorectal cancer is less than 1 in 1500 (negative predictive value >99.9%) or has an ??advanced adenoma is less than ??5.3% (negative predictive value 94.7%). These data are based on a prospective cross-sectional study of 10,000 individuals at average risk for colorectal cancer who were screened with both Cologuard and colonoscopy. (Leatha Taylor al, N Engl J Med 2014;370(14):1286- 1297) The normal value (reference range) for this assay is negative. COLOGUARD RE-SCREENING RECOMMENDATION: Periodic colorectal cancer screening is an important part of preventive healthcare for asymptomatic individuals at average risk for colorectal cancer. ??Following a negative Cologuard result, the [place] [employer] and U.S. Multi-Society Task Force screening guidelines recommend a Cologuard re-screening interval of 3 years. References: [place] [employer] Guideline for Colorectal Cancer Screening: https://www.cancer.org/cancer/vaptm-ysocme-clgckh/eiryjeati-crefczcdg-tqirelg/ac s-rec ommendations.html.; Valente DK, Vianey CR, Jon LeeK, Colorectal Cancer Screening: Recommendations for Physicians and Patients from the U.S. Multi-Society Task Force on Colorectal Cancer Screening , Am J Gastroenterology 2017; 112:2985-7068. TEST DESCRIPTION: Composite algorithmic analysis of stool DNA-biomarkers with hemoglobin immunoassay. ?? Quantitative values of individual biomarkers are not reportable and are not associated with individual biomarker result reference ranges. Cologuard is intended for colorectal cancer screening of adults of either sex, 45 years or older, who are at average-risk for colorectal cancer (CRC). Cologuard has been approved for use by the U.S. FDA. The performance of Cologuard was established in a cross sectional study of average-risk adults aged 50-84. Cologuard performance in patients ages 45 to 49 years was estimated by sub-group analysis of near-age groups. Colonoscopies performed for a positive result may find as the most clinically significant lesion: colorectal cancer [4.0%], advanced adenoma (including sessile serrated polyps greater than or equal to 1cm diameter) [20%] or non- advanced adenoma [31%]; or no colorectal neoplasia [45%]. These estimates are derived from a prospective cross-sectional screening study of 10,000 individuals at average risk for colorectal cancer who were screened with both Cologuard and colonoscopy. (Leatha Jones et al, N Engl J Med 2014;370(14):6006-3591.) Cologuard may produce a false negative or false positive result (no colorectal cancer or precancerous polyp present at colonoscopy follow up). A negative Cologuard test result does not guarantee the absence of CRC or advanced adenoma (pre-cancer). The current Cologuard screening interval is every 3 years. ([place] [employer] and U.S. Multi-Society Task Force). Cologuard performance data in a 10,000 patient pivotal study using colonoscopy as the reference method can be accessed at the following location: www.TaskBeat.Optrace/results. Additional description of the Cologuard test process, warnings and precautions can be found at www.WalkMerd.com. Stool specimen (specimen) 06/16/2023 9:59 AM EDT 06/17/2023 8:57 PM EDT Patti Beth MD LAB MOLECULAR DIAGNOSTICS ORD ERABLES Final Result [facility] (CLIA #:[id number]) [address] [place] [address], * Albumin, Random Urine W/Creatinine (05/01/2023 9:00 PM EDT) Creatinine, Urine 272.27 mg/dL [facility] Microalbumin Urine 45.0 mg/L [facility] Microalbum Creatinine Ratio Ur 16.5 <30 ug/mg cr [facility] Comment:Albumin/Creatinine R atio Reference Ranges: Normal: < 30 ug/mg creatinine Microalbuminuria: 30 - 300 ug/mg creatinineClinical Albuminuria: > 300 ug/mg creatinine Urine (Urine, Random) 05/01/2023 9:00 PM EDT 05/02/2023 9:44 AM EDT Patti Beth MD LAB URINE ORDERABLES Final Re sult Performing Organization Address [facility] Co de Phone Number [facility] [address] [place] [address] [phone] * Hepatitis C Ab (05/01/2023 6:40 AM EDT) Hepatitis C Antibody Nonreactive Nonreactive [facility] Comment:Antibodies to HCV no t detected; does not exclude early acuteHCV infection. Blood 05/01/2023 6:40 AM EDT 05/01/2023 6:48 AM EDT Patti Beth MD LAB BLOOD ORDERABLES Final Re sult Performing Organization Address City/[facility]/ZIP Co de Phone Number [facility] [address] [place] [phone] * HIV Ab/Ag ([facility]PLAC[facility]) (05/01/2023 6:40 AM EDT) HIV AB/AG Nonreactive Nonreactive [facility] Comment:HIV-1 p24 Ag and/or HIV-1/HIV-2 Ab not detected.A test result that is nonreactive does not exclude thepossibility of exposure to or infection with HIV-1 and/orHIV-2. Nonreactive results in this assay for individualswith prior exposure to HIV-1 and/or HIV-2 may be due toantigen and antibody levels that are below the limit ofdetection of this assay.The [employer] Driver HIV Ag/Ab Combo assay result andsupplemental assay results should be interpreted inconjunction with the patient's clinical presentation,history and other laboratory results. If the results areinconsistent with clinical evidence, additional testing issuggested to confirm the result. 05/01/2023 6:40 AM EDT 05/01/2023 6:48 AM EDT us Patti Beth MD LAB BLOOD ORDERABLES Final Re sult [facility] [address] [place] [address] [phone] * Lipid Panel, Standard (05/01/2023 6:40 AM EDT) Triglycerides 77 mg/dL [facility] Comment:Desirable Triglyceri de: less than 150 mg/dLBorderline High Triglyceride 150-199 mg/dLHigh Triglyceride: 200-499 mg/dLVery High Triglyceride: greater than or equal to 5OO mg/dL Cholesterol 102 mg/dL [facility] Comment:Desirable Cholestero l: less than 200 mg/dLBorderline High Cholesterol: 200-239 mg/dLHigh Cholesterol: greater than 239 mg/dL LDL Cholesterol Calculated 46 mg/dl [facility] Comment:Desirable LDL: less than 100 mg/dLNear Optimal/Above Optimal LDL: 110- 129 mg/dLBorderline High LDL: 130-159 mg/dLHigh LDL: 160-189 mg/dLVery High LDL: greater than or equal to 190 mg/dL HDL Cholesterol 41 mg/dL [facility] Comment:Desirable HDL: great er than 40 mg/dL Note: This HDL assay may give artificially low results in patients with liver disease. Blood Venous blood specimen / Unknown 05/01/2023 6:40 AM EDT 05/01/2023 6:48 AM EDT us Patti Beth MD LAB BLOOD ORDERABLES Final Re sult [facility] [address] [place] [phone] [phone] * HP Diabetic Foot Exam (04/27/2023) us Patti Beth MD HEALTH MAINTENANCE Final Resu lt from Last 3 Months or Most Recently Relevant to Health Maintenance [place] [address] [place] [address] - [employer] Care Teams Senior Microstrategy Developer Relationship Specialty Start Date End Date Patti Beth MD [address] [place] [address] PCP - General Family Medicine 08/26/20
--- OUTSIDE RECORDS SUMMARY | 2024-11-08 07:24 | XMS_ITS | Encounter Summary ---
Author Organization [employer] Address [address] [facility] [address] [place] [address] Care Team Providers Care Ripsaw Matcher Name Role Phone Patti Beth MD Primary Care Provider [phone] Reason for Visit * Reason Comments Med Refill Encounter Details Date Type Department Care Team ([facility] Contact Info) Description 10/28/2024 Refill [facility] [address] [place] [address] Patti Beth MD [address] [place] [address] Social History Tobacco Use Types Packs/Day Years [...] documented as of this encounter Care Teams Ripsaw Matcher Relationship Specialty Start Date End Date Patti Beth MD [address] [place] [address] PCP - General Family Medicine 08/26/20 documented as of this encounter
--- OUTSIDE RECORDS SUMMARY | 2024-11-08 07:25 | XMS_ITS | Encounter Summary ---
Author Organization [employer] Address [address] [place] [address] [address] [place] [address] Care Team Providers Care Technology Education Instructor Name Role Phone Patti Beth MD Primary Care Provider [phone] Reason for Visit * Reason Comments Med Refill Encounter Details Date Type Department Care Team ([facility] Contact Info) Description 11/17/2022 Refill [facility] [address] [place], [place] [phone] Patti Beth MD [address] [place] [address] Mixed hyperlipidemia (Primary Dx) Social History Tobacco Use Types Packs/Day Years Used Date Smoking Tobacco: Never Assessed Sex and Gender Information Value Date Recorded [...] suspected to have Coronavirus/COVID-19? No / Unsure 10/20/2022 2:21 PM EST documented as of this encounter Plan of Treatment Not on file documented as of this encounter Visit Diagnoses Diagnosis Mixed hyperlipidemia- Primary documented in this encounter Care Teams Technology Education Instructor Relationship Specialty Start Date End Date Patti Beth MD [address] [place] [phone] PCP - General Family Medicine 12/16/20 documented as of this encounter
--- OUTSIDE RECORDS SUMMARY | 2024-11-08 07:25 | XMS_ITS | Encounter Summary ---
Author Organization [employer] Address [address] [facility] [address] [place] [address] Care Team Providers Care Ncqa Specialist Name Role Phone Patti Beth MD Primary Care Provider Encounter Details Date Type Department Care Team (Latest Contact Info) Description 11/06/2024 Travel Social History Tobacco Use Types Packs/Day [...] Assessment Noted Time PHQ-9 Depression Total Score: 0 11/06/19 25 9:44 AM EST documented as of this encounter Care Teams Ncqa Specialist Relationship Specialty Start Date End Date Patti Beth MD [address] [place] [address] PCP - General Family Medicine 08/26/20 documented as of this encounter
--- OUTSIDE RECORDS SUMMARY | 2024-11-08 07:25 | XMS_ITS | Encounter Summary ---
Author Organization [employer] Address [address] [place] [address] 7 [place] [address] Care Team Providers Care Doper Operator Name Role Phone Patti Beth MD Primary Care Provider [phone] Encounter Details Date Type Department Care Team ([facility] Contact Info) Description 11/06/2024 10:15 AM EST Office Visit [facility] CHC MED & PEDS [address] [place], [place] [phone] Lamar Kc MD [address] [place] [address] Primary hypertension (Primary Dx); Type 2 diabetes mellitus without complication, without long-term current use of insulin (CMS/HCC); Dietary counseling; Exercise counseling; Malignant tumor of prostate (CMS/HCC) Social History Tobacco Use Types Packs/Day Years Used Date Smoking Tobacco: Never Passive Smoke Exposure: Never Smokeless Tobacco: Never Depression Answer Date Recorded Patient Health Questionnaire-9 Score 0 11/06/2024 Patient Health Questionnaire-9 Score 0 11/06/2024 Last PHQ-9: Questionnaire Data Not on file 0 11/06/2024 Housing Stability Answer Date Recorded What is your housing situation today? I have jonathancydney collins 11/06/[address] you [...] AM EDT documented as of this encounter Last Filed Vital Signs Vital Sign Reading [...] Mass Index 30.09 11/06/2024 9:43 AM EST documented in this encounter Progress Notes * Lamar Kc MD - 11/06/2024 10:15 AM EST Subjective Patient ID: Shane Delgado is a 64 y.o. male who presents for medical conditions Diabetes He presents for his follow-up diabetic visit. He has type 2 diabetes mellitus. His disease course has been stable. There are no hypoglycemic associated symptoms. Pertinent negatives for diabetes include no blurred vision, no chest pain, no fatigue, no foot paresthesias, no foot ulcerations, no polyphagia, no polyuria, no visual change and no weight loss. There are no hypoglycemic complications. Symptoms are stable. There are no diabetic complications. Pertinent negatives for diabetic complications include no CVA, heart disease, nephropathy, peripheral neuropathy or PVD. Risk factors for coronary artery disease include diabetes mellitus, male sex and hypertension. Current diabetic treatment includes diet and oral agent (monotherapy). He is compliant with treatment all of the time. He is following a generally healthy diet. He has not had a previous visit with a dietitian. Exercise: Works on a farm. There is no change in his home blood glucose trend. Eye exam is current (Yearly at [facility] Review of Systems Constitutional: Negative for activity change, appetite change, fatigue and weight loss. Eyes: Negative for blurred vision and visual disturbance. Respiratory: Negative for chest tightness and shortness of breath. Cardiovascular: Negative for chest pain and leg swelling. Gastrointestinal: Negative for blood in stool. Endocrine: Negative for polyphagia and polyuria. Skin: Negative for rash and wound. Psychiatric/Behavioral: Negative for behavioral problems and sleep disturbance. Objective BP 122/77 (BP Location: Right arm, Patient Position: Sitting, BP Cuff Size: Large adult) Pulse 82 Temp 97.6 ??F (36.4 ??C) (Oral) Resp 20 Ht 5' 7.32 (1.71 m) Wt 194 lb (88 kg) SpO2 98% BMI 30.09 kg/m?? Physical Exam Vitals reviewed. Constitutional: Appearance: Normal appearance. He is normal weight. HENT: Head: Normocephalic. Mouth/Throat: Mouth: Mucous membranes are moist. Eyes: Pupils: Pupils are equal, round, and reactive to light. Cardiovascular: Rate and Rhythm: Normal rate and regular rhythm. Heart sounds: Normal heart sounds. No murmur heard. Pulmonary: Effort: Pulmonary effort is normal. No respiratory distress. Breath sounds: Normal breath sounds. Abdominal: General: There is no distension. Musculoskeletal: General: Normal range of motion. Cervical back: Normal range of motion. Neurological: General: No focal deficit present. Mental Status: He is oriented to person, place, and time. Psychiatric: Mood and Affect: Mood normal. Behavior: Behavior normal. Assessment/Plan Diagnoses and all orders for this visit: Primary hypertension Comments: BP well-controlled. Continue KANU inhibitor as per PCP. Follow-up in 3 months. Type 2 diabetes mellitus without complication, without long-term current use of insulin (CMS/HCC) Comments: Patient is very well-controlled with A1c below 7. Eye exam up-to-date. Declines flu vaccine today. Due for fasting lipids and which were ordered. Orders: - POCT HGB A1C - POCT Glucose - Albumin, Random Urine W/Creatinine; Future - Lipid Panel, Standard; Future - Hepatic Function Panel; Future Dietary counseling Exercise counseling Malignant tumor of prostate ([facility]) Comments: Sees urology twice a year. Doing well per patient. Denies urinary complaints. documented in this encounter Plan of Treatment Scheduled Orders Name Type Priority Associated Diagnoses Orde r Schedule Albumin, Random Urine W/Creatinine Lab Routine Type 2 diabetes mellitus without complication, without long-term current use of insulin (CMS/HCC) Expected: 11/06/2024 (Approximate), Expires: 11/06/2025 Lipid Panel, Standard Lab Routine Type 2 diabetes mellitus without complication, without long-term current use of insulin (CMS/HCC) Expected: 11/06/2024 (Approximate), Expires: 11/06/2025 Hepatic Function Panel Lab Routine Type 2 diabetes mellitus without complication, without long-term current use of insulin (CMS/HCC) Expected: 11/06/2024 (Approximate), Expires: 11/06/2025 documented as of this encounter Procedures Procedure Name Priority Date/Time Associated Diagnosis Comments POCT GLUCOSE Routine 11/06/2024 9:51 AM EST Type 2 diabetes mellitus without complication, without long-term current use of insulin ([facility]) POCT GLYCATED HEMOGLOBIN, TOTAL Routine 11/06/2024 9:50 AM EST Type 2 diabetes mellitus without complication, without long-term current use of insulin ([facility]) documented in this encounter Results * (ABNORMAL) POCT Glucose (11/06/2024 9:51 AM EST) Glucose Blood, POC 242(A) 60 - 200 mg/dL QC Media Lot # [id number] Lot# Expiration Date Blood Capillary blood specimen / Unknown 11/06/2024 9:51 AM EST Lamar Kc MD POINT OF CARE TEST ENTER/EDIT ORDERABLES Final Result * (ABNORMAL) POCT HGB A1C (11/06/2024 9:50 AM EST) Hemoglobin A1C 6.4(A) 4.0 - 6.0 % QC Media Lot # [id number] Lot# Expiration Date ,826 Blood 11/06/2024 9:50 AM EST Lamar Kc MD POINT OF CARE TEST ENTER/EDIT ORDERABLES Final Result documented in this encounter Visit Diagnoses Diagnosis Primary hypertension- Primary Unspecified essential hypertension Type 2 diabetes mellitus without complication, without long-term current use of insulin (CMS/HCC) Dietary counseling Dietary surveillance and counseling Exercise counseling Malignant tumor of prostate (CMS/HCC) Malignant neoplasm of prostate documented in this encounter Additional Health Concerns Assessment Noted Time PHQ-9 Depression Total Score: 0 11/06/19 25 9:44 AM EST documented as of this encounter Care Teams Doper Operator Relationship Specialty Start Date End Date Patti Beth MD [address] [place] [address] PCP - General Family Medicine 08/26/20 documented as of this encounter
[2024-11-08 08:48] LABS: Alanine Aminotransferase 24 U/L (0-40); Albumin Level 4.1 g/dL (3.5-5.0); Alkaline Phosphatase 102 U/L (39-117); Aspartate Amino Transferase 21 U/L (5-37); Bilirubin Direct 0.1 mg/dL (0.0-0.5); Bilirubin Total 0.3 mg/dL (0.0-1.0); Cholesterol 122 mg/dL (<200); HDL Cholesterol 47 mg/dL (>40); LDL Cholesterol Calculated 58 mg/dL (<100); Total Protein 7.2 g/dL (6.5-8.0); Triglycerides 85 mg/dL (<150)
== END 2024-11-08 07:21 | disposition home or self-care (01) ==
LOC: HO.LAB 07:20
PROVIDERS: PCP Family Medicine; Visit Provider Pediatrics
DX: E11.9 Type 2 diabetes mellitus without complications (principal)
CPT/HCPCS: 36415; 80061; 80076

== ENCOUNTER 2024-11-09 08:04 | Outpatient (REF) | payer OTHER, SELFPAY ==
--- OUTSIDE RECORDS SUMMARY | 2024-11-09 08:08 | XMS_ITS | Encounter Summary ---
Author Organization [employer] Address [address] [place] [address] 7 [place] [address] Care Team Providers Care Manager Demand Name Role Phone Patti Beth MD Primary Care Provider [phone] Encounter Details Date Type Department Care Team ([facility] st Contact Info) Description 01/16/2023 Orders Only [facility] CHC MED & PEDS [address] [place], [place] [phone] Elizabeth Rodriguez MD [address] [place] [address] Closed fracture of malleolus of right ankle, [...] Primary documented in this encounter Care Teams Manager Demand Relationship Specialty Start Date End Date Patti Beth MD [address] [place] [phone] PCP - General Family Medicine 08/26/20 documented as of this encounter
--- OUTSIDE RECORDS SUMMARY | 2024-11-09 08:08 | XMS_ITS | Encounter Summary ---
Author Organization [employer] Address [address] [facility] 7t [place] [address] Care Team Providers Care Installer Interior Assemblies Name Role Phone Patti Beth MD Primary Care Provider [phone] Reason for Visit * Reason Comments Med Refill Encounter Details Date Type Department Care Team ([facility] Contact Info) Description 10/28/2024 Refill [facility] CHC MED & PEDS [address] [place] [address] Patti Beth MD [address] [place] [address] Social History Tobacco Use Types Packs/Day Years [...] documented as of this encounter Care Teams Installer Interior Assemblies Relationship Specialty Start Date End Date Patti Beth MD [address] [place] [address] PCP - General Family Medicine 08/26/20 documented as of this encounter
--- OUTSIDE RECORDS SUMMARY | 2024-11-09 08:08 | XMS_ITS | Clinical Summary ---
Author Organization [employer] Address [address] [place] [address] 7 [place] [address] Care Team Providers Care Library Circulation Department Chief Name Role Phone Patti Beth MD Primary Care Provider [phone] Allergies Active Allergy Reactions Criticality Noted Date [...] needed at bedtime. 023 Active BD Disp Splendora 18G X 1-09/12 misc USE DIRECTED TO [...] complication, without long-term current use of insulin ([facility]) DIRECTED TO TEST BLOOD SUGAR TWICE DAILY 100 strip 5 Active metFORMIN (Glucophage) 500 MG tabletIndications :Type 2 diabetes mellitus with hyperglycemia, unspecified whether emt intermediate insulin use ([facility]) TAKE 1 TABLET(500 MG) BY MOUTH IN [...] diabetes mellitus wit h hyperglycemia, unspecified whether emt intermediate insulin use 09/19/2023 Assessment & Plan (09/19/2023 [...] Description 11/06/2024 10:15 AM EST Office Visit [facility] MED & PEDS [address] [place] [address] Lamar Kc MD Primary hypertension (Primary Dx); Type 2 diabetes mellitus without complication, without long-term current use of insulin ([facility]); Dietary counseling; Exercise counseling; Malignant tumor of prostate ([facility]) 11/06/2024 Travel 10/28/2024 Refill [facility] MED & PEDS [address] [place] [address] Patti Beth MD 10/10/2024 Travel 09/19/2024 Refill [facility] MED & PEDS [address] [place] [address] Patti Beth MD 09/08/2024 Refill [facility] MED & PEDS [address] [place] [address] Patti Beth MD Right leg pain 08/17/2024 Refill [facility] MED & PEDS [address] [place] [address] Patti Beth MD from Last 3 Months [...] Urine Protein Screening 05/01/2024 05/01/2023, 12/03/2021, 09/24/2019 COVID-19 Vaccine ( season) 2024 06/05/2021, 05/15/2021 Influenza Vaccine (#1) 2024 07/17/2017, 2011 Tobacco Screening 12/10/2024 12/11/2023 Diabetes: Hemoglobin A1C 05/06/2025 025, 04/23/2024, 12/11/2023, Additional history exists Alcohol/Substance Use Screening 11/06/2025 11/06/2024 Depression Screening 11/06/2025 11/06/2024, 11/06/19 25 SDOH Screening 11/06/2025 11/06/2024 Lipid Panel 11/08/2025 11/08/2024, 0809/2022, 08/25/2020 Colorectal Cancer Screening 06/16/2026 FIT DNA/Cologuard 06/16/2026 [...] Procedure Name Priority Date/Time Associated Diagnosis Comments HEPATIC FUNCTION PANEL Routine 11/08/2024 7:31 AM EST Type 2 diabetes mellitus without complication, without long-term current use of insulin (CMS/HCC) LIPID PANEL, STANDARD Routine 11/08/2024 7:31 AM EST Type 2 diabetes mellitus without complication, without long-term current use of insulin (CMS/HCC) POCT GLUCOSE Routine 11/06/2024 9:51 AM EST [...] ([place] DPH) Routine 05/01/2023 6:40 AM EDT HP LINK DIABETIC FOOT EXAM Routine 04/27/2023 from Last 3 Months or Most Recently Relevant to Health Maintenance Results * Hepatic Function Panel (11/08/2024 7:31 AM EST) Bilirubin, Total 0.3 0.0 - 1.0 mg/dL [facility] Bilirubin, Direct 0.1 0.0 - 0.5 mg/dL [facility] Aspartate Amino Transferase 21 5 - 37 U/L [facility] Alanine Aminotransferase 24 0 - 40 U/L [facility] Total Protein 7.2 6.5 - 8.0 g/dL [facility] Albumin Level 4.1 3.5 - 5.0 g/dL [facility] Alkaline Phosphatase 102 39 - 117 U/L [facility] Blood Venous blood specimen / Unknown 11/08/2024 7:31 AM EST 11/08/2024 7:31 AM EST us Lamar Kc MD LAB BLOOD ORDERABLES Final Re sult [facility] [address] [place] [phone] * Lipid Panel, Standard (11/08/2024 7:31 AM EST) Triglycerides 85 <150 mg/dL [facility] Comment:Desirable Triglyceri de: less than 150 mg/dLBorderline High Triglyceride 150-199 mg/dLHigh Triglyceride: 200-499 mg/dLVery High Triglyceride: greater than or equal to 5OO mg/dL Cholesterol 122 <200 mg/dL [facility] Comment:Desirable Cholestero l: less than 200 mg/dLBorderline High Cholesterol: 200-239 mg/dLHigh Cholesterol: greater than 239 mg/dL LDL Cholesterol Calculated 58 <100 mg/dL [facility] Comment:Desirable LDL: less than 100 mg/dLNear Optimal/Above Optimal LDL: 110- 129 mg/dLBorderline High LDL: 130-159 mg/dLHigh LDL: 160-189 mg/dLVery High LDL: greater than or equal to 190 mg/dL HDL Cholesterol 47 >40 mg/dL [facility] Comment:Desirable HDL: great er than 40 mg/dL Note: This HDL assay may give artificially low results in patients with liver disease. Blood Venous blood specimen / Unknown 11/08/2024 7:31 AM EST 11/08/2024 7:31 AM EST Result Zehra Kc MD LAB BLOOD ORDERABLES Final Re sult [facility] [address] [place] [phone] * (ABNORMAL) POCT Glucose (11/06/2024 9:51 AM EST) Glucose Blood, POC 242(A) 60 - 200 mg/dL QC Media Lot # [id number] Lot# Expiration Date 7,325 Blood Capillary blood specimen / Unknown 11/06/2024 9:51 AM EST Result Zehra Kc MD POINT OF CARE TEST ENTER/EDIT ORDERABLES Final Result * (ABNORMAL) POCT HGB A1C (11/06/2024 9:50 AM EST) Hemoglobin A1C 6.4(A) 4.0 - 6.0 % QC Media Lot # [id number] Lot# Expiration Date 101,826 Blood 11/06/2024 9:50 AM EST Result Zehra Kc MD POINT OF CARE TEST ENTER/EDIT ORDERABLES Final Result * Cologuard?? colon cancer screening (06/16/2023 9:59 AM EDT) Cologuard Result Negative Negative 06/24/20 1:41 AM EDT [employer] (CLIA #:[id number]) Comment: NEGATIVE TEST RESULT. A negative Cologuard [...] cancer. ??Following a negative Cologuard result, the [place] [employer] and U.S. Multi-Society Task Force screening guidelines recommend a Cologuard re-screening interval of 3 years. References: [place] [employer] Guideline for Colorectal Cancer Screening: https://www.cancer.org/cancer/oydnn-lzfhex-czgiqg/rwripkhyu-agfylarsw-ohxfdqt/ac s-rec ommendations.html.; Valente DK, Vinaey ARIAS, Jon LeeK, Colorectal Cancer Screening: Recommendations for Physicians and Patients from the U.S. Multi-Society Task Force on Colorectal Cancer Screening , Am J Gastroenterology 2017; 112:4760-9591. TEST DESCRIPTION: Composite algorithmic analysis of stool [...] (Leatha Taylor al, N Engl J Med 2014;370(14):8451-8137.) Cologuard may produce a false negative or false positive result (no colorectal cancer or precancerous polyp present at colonoscopy follow up). A negative Cologuard test result does not guarantee the absence of CRC or advanced adenoma (pre-cancer). The current Cologuard screening interval is every 3 years. ([place] [employer] and U.S. Multi-Society Task Force). Cologuard performance data in a 10,000 patient pivotal study using colonoscopy as the reference method can be accessed at the following location: www.drop.io.Casentric/results. Additional description of the Cologuard test process, warnings and precautions can be found at www.InterpretOmicsogBounce Mobilerd.Casentric. Stool specimen (specimen) 06/16/2023 9:59 AM EDT 06/17/2023 8:57 PM EDT Patti Beth MD LAB MOLECULAR DIAGNOSTICS ORD ERABLES Final Result Performing Organization Address [facility] de Phone Number [employer] (CLIA #:[id number]) [address] [place] [address], * Albumin, Random Urine W/Creatinine (05/01/2023 9:00 PM EDT) Creatinine, Urine 272.27 mg/dL [facility] Microalbumin Urine 45.0 mg/L [facility] Microalbum Creatinine Ratio Ur 16.5 <30 ug/mg cr [facility] Comment:Albumin/Creatinine R atio Reference Ranges: Normal: < 30 ug/mg creatinine Microalbuminuria: 30 - 300 ug/mg creatinineClinical Albuminuria: > 300 ug/mg creatinine Urine (Urine, Random) 05/01/2023 9:00 PM EDT 05/02/2023 9:44 AM EDT Patti Beth MD LAB URINE ORDERABLES Final Re sult Performing Organization Address [facility]/ZIP Co de Phone Number [facility] [address] [place] [phone] * Hepatitis C Ab (05/01/2023 6:40 AM EDT) Hepatitis C Antibody Nonreactive Nonreactive [facility] Comment:Antibodies to HCV no t detected; does not exclude early acuteHCV infection. Blood 05/01/2023 6:40 AM EDT 05/01/2023 6:48 AM EDT Patti Beth MD LAB BLOOD ORDERABLES Final Re sult Performing Organization Address [facility] Co de Phone Number [facility] [address] [place] [address] [phone] * HIV Ab/Ag ([facility]) (05/01/2023 6:40 AM EDT) [facility] HIV AB/AG Nonreactive Nonreactive [facility] Comment:HIV-1 p24 Ag and/or HIV-1/HIV-2 Ab not detected.A test result that is nonreactive does not exclude thepossibility of exposure to or infection with HIV-1 and/orHIV-2. Nonreactive results in this assay for individualswith prior exposure to HIV-1 and/or HIV-2 may be due toantigen and antibody levels that are below the limit ofdetection of this assay.The [employer] Hem Inspector HIV Ag/Ab Combo assay result andsupplemental assay results should be interpreted inconjunction with the patient's clinical presentation,history and other laboratory results. If the results areinconsistent with clinical evidence, additional testing issuggested to confirm the result. 05/01/2023 6:40 AM EDT 05/01/2023 6:48 AM EDT Patti Beth MD LAB BLOOD ORDERABLES Final Re sult Performing Organization Address [facility] Co de Phone Number [facility] [address] [place] [address] [phone] * HP Diabetic Foot Exam (04/27/2023) Patti Beth MD HEALTH MAINTENANCE Final Resu lt from Last 3 Months or Most Recently Relevant to Health Maintenance Insurance Care Teams Library Circulation Department Chief Relationship Specialty Start Date End Date Patti Beth MD [address] [place] [phone] PCP - General Family Medicine 08/26/20
--- OUTSIDE RECORDS SUMMARY | 2024-11-09 08:08 | XMS_ITS | Encounter Summary ---
Author Organization [employer] Address [address] [facility] 7t [place] [address] Care Team Providers Care Lineman A Class Name Role Phone Patti Beth MD Primary Care Provider [phone] Encounter Details Date Type Department Care Team [...] documented as of this encounter Care Teams Lineman A Class Relationship Specialty Start Date End Date Patti Beth MD [address] [place] [address] PCP - General Family Medicine 08/26/20 documented as of this encounter
--- OUTSIDE RECORDS SUMMARY | 2024-11-09 08:08 | XMS_ITS | Encounter Summary ---
Author Organization [employer] Address [address] [place] [address] 7 [place] [address] Care Team Providers Care Centrex Radio Operator Name Role Phone Patti Beth MD Primary Care Provider [phone] Encounter Details Date Type Department Care Team ([facility] Contact Info) Description 11/06/2024 10:15 AM EST Office Visit [facility] CHC MED & PEDS [address] [place], [place] [phone] Lamar Kc MD [address] [place] [address] Primary hypertension (Primary Dx); Type 2 diabetes [...] trend. Eye exam is current (Yearly at [facility]). Review of Systems Constitutional: Negative for activity [...] Exercise counseling Malignant tumor of prostate (CMS/HCC) Comments: Sees urology twice a year. Doing [...] without long-term current use of insulin (CMS/HCC) documented in this encounter Results * Hepatic Function Panel (11/08/2024 7:31 AM EST) Bilirubin, Total 0.3 0.0 - 1.0 mg/dL [facility] Bilirubin, Direct 0.1 0.0 - 0.5 mg/dL [facility] Aspartate Amino Transferase 21 5 - 37 U/L [facility] Alanine Aminotransferase 24 0 - 40 U/L [facility] Total Protein 7.2 6.5 - 8.0 g/dL [facility] Albumin Level 4.1 3.5 - 5.0 g/dL [facility] Alkaline Phosphatase 102 39 - 117 U/L [facility] Blood Venous blood specimen / Unknown 11/08/2024 7:31 AM EST 11/08/2024 7:31 AM EST us Lamar Kc MD LAB BLOOD ORDERABLES Final Re sult [facility] [address] [place] [phone] * Lipid Panel, Standard (11/08/2024 7:31 AM EST) Triglycerides 85 <150 mg/dL [facility] Comment:Desirable Triglyceri de: less than 150 mg/dLBorderline High Triglyceride 150-199 mg/dLHigh Triglyceride: 200-499 mg/dLVery High Triglyceride: greater than or equal to 5OO mg/dL Cholesterol 122 <200 mg/dL [facility] Comment:Desirable Cholestero l: less than 200 mg/dLBorderline High Cholesterol: 200-239 mg/dLHigh Cholesterol: greater than 239 mg/dL LDL Cholesterol Calculated 58 <100 mg/dL [facility] Comment:Desirable LDL: less than 100 mg/dLNear Optimal/Above Optimal LDL: 110- 129 mg/dLBorderline High LDL: 130-159 mg/dLHigh LDL: 160-189 mg/dLVery High LDL: greater than or equal to 190 mg/dL HDL Cholesterol 47 >40 mg/dL [facility] Comment:Desirable HDL: great er than 40 mg/dL Note: This HDL assay may give artificially low results in patients with liver disease. Blood Venous blood specimen / Unknown 11/08/2024 7:31 AM EST 11/08/2024 7:31 AM EST us Lamar Kc MD LAB BLOOD ORDERABLES Final Re sult [facility] [address] [place] [phone] * (ABNORMAL) POCT Glucose (11/06/2024 9:51 [...] Date 101,826 Blood 11/06/2024 9:50 AM EST us Lamar Kc MD POINT [...] documented as of this encounter Care Teams Centrex Radio Operator Relationship Specialty Start Date End Date Patti Beth MD [address] [place] [address] PCP - General Family Medicine 08/26/20 documented as of this encounter
--- OUTSIDE RECORDS SUMMARY | 2024-11-09 08:08 | XMS_ITS | Encounter Summary ---
Author Organization [employer] Address [address] [place] [address] 7 [place] [address] Care Team Providers Care Evp Name Role Phone Patti Beth MD Primary Care Provider [phone] Reason for Visit * Reason Comments Med Refill Encounter Details Date Type Department Care Team ([facility] st Contact Info) Description 11/17/2022 Refill [facility] CH[facility] MED & PEDS [address] [place], [place] [phone] Patti Beth MD [address] [place] [address] Mixed hyperlipidemia (Primary Dx) Social History Tobacco [...] Primary documented in this encounter Care Teams Evp Relationship Specialty Start Date End Date Patti Beth MD [address] [place] [phone] PCP - General Family Medicine 12/16/20 documented as of this encounter
--- OUTSIDE RECORDS SUMMARY | 2024-11-09 08:08 | XMS_ITS | Encounter Summary ---
Author Organization [employer] Address [address] [facility] 7t [place] [address] Care Team Providers Care Tailer In Name Role Phone Patti Beth MD Primary Care Provider Encounter Details Date Type Department Care Team ([facility] st Contact Info) Description 05/06/2024 Orders Only [facility] & PEDS [address] [place], [place] [phone] ProviderVladimir MD Social History Tobacco Use Types [...] documented as of this encounter Care Teams Tailer In Relationship Specialty Start Date End Date Patti Beth MD [address] [place] [address] PCP - General Family Medicine 08/26/20 documented as of this encounter
[2024-11-09 09:17] LABS: Creatinine Urine 143.02 mg/dL; Microalbum/Creatinine Ratio Ur 20.2 ug/mg cr (<30)
== END 2024-11-09 08:05 | disposition home or self-care (01) ==
LOC: HO.10HDLNP 08:04
PROVIDERS: Visit Provider Pediatrics
DX: E11.9 Type 2 diabetes mellitus without complications (principal)
CPT/HCPCS: 82043; 82570

== ENCOUNTER 2025-01-22 09:55 | Outpatient (REF) | payer OTHER, SELFPAY ==
--- NOTE | ~2025-01-22 | XR_ITS ---
EXAMINATION: XR CHEST 2 VIEWS HISTORY: Patient with 2-week duration of bilateral pedal edema. Underlying HTN. COMPARISON: Comparison is made with the prior examination dated 07/18/2023. FINDINGS: PA and lateral views of the chest are submitted. The lungs are expanded and clear. There is no pleural effusion, pneumothorax, or pulmonary vascular congestion. The heart is normal in size. There is mild degenerative disc disease of the spine. XR/XR chest 2V IMPRESSION: No acute cardiopulmonary abnormality. Electronically signed by: Yohannes Apple MD 01/22/2025 10:31 AM EDT
--- OUTSIDE RECORDS SUMMARY | 2025-01-22 10:45 | XMS_ITS | Clinical Summary ---
Author Organization [employer] Address [address] [place] [address] 7t [place] [address] Care Team Providers Care Medical Resident Name Role Phone Patti Beth MD Primary Care Provider [phone] Allergies Active Allergy Reactions Criticality Noted Date [...] needed at bedtime. 023 Active BD Disp [place] 18G X 1-09/12 misc USE DIRECTED TO [...] complication, without long-term current use of insulin ([facility]) DIRECTED TO TEST BLOOD SUGAR TWICE DAILY 100 strip 5 Active metFORMIN (Glucophage) 500 MG tabletIndications :Type 2 diabetes mellitus with hyperglycemia, unspecified whether tank terminal gauger insulin use ([facility]) TAKE 1 TABLET(500 MG) BY MOUTH IN THE MORNING 90 tablet 1 Active cholecalciferol VITAMIN D (Vitamin D-3) 50 MCG (1999) tablet TAKE 1 TABLET BY MOUTH EVERY MORNING 120 tablet 4 024 Active cholecalciferol (Vitamin D-3) 50 MCG (1999) tablet TAKE 1 TABLET BY MOUTH EVERY MORNING 120 tablet 4 Active rosuvastatin (Crestor) 10 MG tabletIndications :Mixed hyperlipidemia TAKE 1 TABLET BY MOUTH EVERY DAY 90 tablet 4 Active ketoconazole (NIZOral) 2 % cream APPLY TOPICALLY TO THE AFFECTED AREA TWICE DAILY 60 g 2 024 Active montelukast (Singulair) 10 MG tablet TAKE 1 TABLET(10 MG) BY MOUTH AT BEDTIME 90 tablet 1 024 Active pantoprazole (ProtoNix) 20 MG EC tabletIndications :Gastroesophageal reflux disease, unspecified whether esophagitis present TAKE 1 TABLET BY MOUTH EVERY DAY 90 tablet 1 024 Active celecoxib (CeleBREX) 100 MG capsuleIndication s:Right leg pain TAKE 1 CAPSULE(100 MG) BY MOUTH TWICE DAILY 180 capsule 1 024 Active lisinopril 20 MG tablet TAKE 1 TABLET(20 MG) BY MOUTH IN THE MORNING 90 tablet 1 025 Active terazosin (Hytrin) 5 MG capsule Take 5 mg by mouth at bedtime. 024 Active Dulaglutide (Trulicity) 0.75 MG/0.5ML solution auto-injector Inject 0.75 mg under the skin 1 (one) time per week. 2 mL 5 025 Active amLODIPine (Norvasc) 10 MG tabletIndications :Hypertension, unspecified type TAKE 1 TABLET(10 MG) BY MOUTH IN THE MORNING 90 tablet 1 025 Active Diclofenac Sodium 1 % gelIndications:Ac [place] bilateral low back pain without sciatica Apply 1 Application topically if needed in the morning, at noon, in the evening, and at bedtime (lower back pain and lateral thigh pain) for up to 14 days. 100 g 1 025 2024 Active amLODIPine (Norvasc) 10 MG tabletIndications :Hypertension, unspecified type TAKE 1 TABLET(10 MG) BY MOUTH IN THE MORNING 90 tablet 1 024 2024 Discontinued Active Problems Problem Noted Date [...] diabetes mellitus wit h hyperglycemia, unspecified whether tank terminal gauger insulin use 09/19/2023 Assessment & Plan (09/19/2023 [...] Encounters Date Type Department Care Team Description 01/20/2025 5:40 PM EDT Office Visit [facility] [address] [place] [phone] Nahum Fernandes MD Pedal edema (Primary Dx); Acute bilateral low back pain without sciatica 01/20/2025 Travel 01/20/2025 Telephone [facility] MED & PEDS [address] [place] [address] Patti Beth MD Walk-In 01/08/2025 Telephone [facility] MED & PEDS [address] [place] [address] Patti Beth MD Med Refill 01/06/2025 Telephone [facility] MED[facility] [address] [place] [phone] Patti Beth MD Durable Medical Equipment 01/03/2025 Refill [facility] [address] [place] [address] Patti Beth MD Hypertension, unspecified type 12/20/2024 Refill [facility] [address] [place] [address] Patti Beth MD 12/19/2024 Telephone [facility]ED[facility] [address] [place] [address] Patti Beth MD Med Refill 11/06/2024 10:15 AM EST Office Visit [facility]ED[facility] [address] [place] [address] Lamar Kc MD Primary hypertension (Primary Dx); Type 2 diabetes mellitus without complication, without long-term current use of insulin (CMS/HCC); Dietary counseling; Exercise counseling; Malignant tumor of prostate ([facility]/HCC) 11/06/2024 Travel 10/28/2024 Refill [facility] [address] [place] [address] Patti Beth MD from Last 3 Months Immunizations Immunization Administration Dates Next Due Hep B, adult [...] Sign Reading Time Taken Comments Blood Pressure 111/79 01/20/2025 5:19 PM EDT Pulse 84 01/20/2025 5:19 PM EDT Temperature 36.6 ??C (97.8 ??F) 01/20/2025 5:19 PM ED T Respiratory Rate 20 01/20/2025 5:19 PM EDT Oxygen Saturation 97% 01/20/2025 5:19 PM EDT Inhaled Oxygen Concentration - - Weight 88 kg (194 lb) 01/20/2025 5:19 PM EDT Height 171 cm (5' 7.32 ) 01/20/2025 5:19 PM EDT Body Mass Index 30.1 01/20/2025 5:19 PM EDT Plan of Treatment Upcoming Encounters Date Type Department Care Team (Late st Contact Info) Description 03/07/2025 3:15 PM EDT Office Visit [facility] [address] [place] [address] Patti Beth MD [address] [place] [address] Health Maintenance Due Date Last Done Comments CT Colonography 1960 Colonoscopy 1961 FIT 1961 FOBT 1960 Sigmoidoscopy 1961 Eye Exam 1971 Zoster Vaccines (1 of 2) 2011 Pneumococcal Vaccine: 50+ Years (2 of 2 - PCV) 06/18/2013 06/18/2012 Hepatitis B Vaccines (2 of 3 - 19+ 3-dose series) 08/14/2017 07/17/2017 Diabetes: Foot Exam 04/27/2024 04/27/2023, 04/27/2023, 04/27/2023, Additional history exists COVID-19 Vaccine (3 - 2023- season) 2024 06/05/2021, 05/15/2021 Influenza Vaccine (#1) 2024 07/17/2017, 2011 Tobacco Screening 12/10/2024 12/11/2023 Diabetes: Hemoglobin A1C 05/06/2025 025, 04/23/2024, 12/11/2023, Additional history exists Alcohol/Substance Use Screening 11/06/2025 11/06/2024 Depression Screening 11/06/2025 11/06/2024, 11/06/19 SDOH Screening 11/06/2025 11/06/2024 Lipid Panel 11/08/2025 11/08/2024, 04/12, 08/25/2020 Diabetes: Urine Protein Screening 11/09/2025 11/09/2024, 05/01/2023, 12/03/2021, Additional history exists Colorectal Cancer Screening 06/16/2026 FIT DNA/Cologuard 06/16/2026 [...] patient's age to complete this topic Meningococcal B Vaccine Aged Out No l onger eligible based on patient's age to complete [...] Name Priority Date/Time Associated Diagnosis Comments XR CHEST 2 VIEWS Routine 01/22/2025 10:0 5 AM EDT Pedal edema POCT URINALYSIS DIPSTICK Routine 01/20/2025 6:52 PM EDT Pedal edema ALBUMIN, RANDOM URINE W/CREATININE Routine 11/09/2024 8:30 AM EST Type 2 diabetes mellitus without complication, without long-term current use of insulin (CMS/HCC) HEPATIC FUNCTION PANEL Routine 11/08/2024 7:31 AM [...] 06/16/2023 9:59 AM EDT Colon cancer screening HEPATITIS C ANTIBODY Routine 05/01/2023 6:40 AM EDT Encounter for health-related screening HIV ANTIBODY/ANTIGEN ([place] DPH) Routine 05/01/2023 6:40 AM EDT HP LINK DIABETIC FOOT EXAM Routine 04/27/2023 from Last 3 Months or Most Recently Relevant to Health Maintenance Results * XR Chest 2 Views (01/22/2025 10:05 AM EDT) Anatomical Region Laterality Modality Chest Radiographic Lynnette ging 01/22/2025 10:0 5 AM EDT Narrative 01/22/2025 10:34 AM EDT ? [facility] ?[address] ?[place] [address] ?XRay Report ? Signed ? Patient: Danny,Steven ?MR#: [id number] ?? [id number] ? : 1960 ?Acct:[id number] ? Age/Sex: 64 / M ?ADM Date: 01/22/25 ? Loc: HO.HHCL ? Attending Dr: Nahum Fernandes MD ? Ordering Physician: Nahum Fernandes MD ?? Date of Service: 01/22/25 ?? Procedure(s): XR chest 2V ?? Accession Number(s): [id number] ? cc: Nahum Fernandes MD ? EXAMINATION: ??XR CHEST 2 VIEWS ? HISTORY: Patient with 2-week duration of bilateral pedal edema. ?? Underlying HTN. ? COMPARISON: Comparison is made with the prior examination dated ?? 07/18/2023. ? FINDINGS: ??PA and lateral views of the chest are submitted. The lungs ?? are expanded and clear. ??There is no pleural effusion, pneumothorax, or ?? pulmonary vascular congestion. ??The heart is normal in size. ??There is ?? mild degenerative disc disease of the spine. ? XR/XR chest 2V ?? IMPRESSION: ?? No acute cardiopulmonary abnormality. ? Electronically signed by: ??Yohannes Apple MD ??01/22/2025 10:31 AM EDT ? Dictated By: ?Yohannes Apple MD ? Signed By: ?<Electronically signed by Yohannes Apple MD in OV> ?01/22/25 1031 ? DD/ 1005 ? TD/TT: 01/22/25 1010 ? Museum Librarian: ? Procedure Note Td, Image - 01/22/[address] [address] XRay Report Signed Patient: Shane Delgado EMR#: [id number] : 1Acct:[id number] Age/Sex: 64 / MADM Date: 01/22/25 Loc: IAN.HHCL Attending Dr: Nahum Fernandes MD Ordering Physician: Nahum Fernandes MD Date of Service: 01/22/25 Procedure(s): XR chest 2V Accession Number(s): [id number] cc: Nahum Fernandes MD EXAMINATION: XR CHEST 2 VIEWS HISTORY: Patient with 2-week duration of bilateral pedal edema. Underlying HTN. COMPARISON: Comparison is made with the prior examination dated 07/18/2023. FINDINGS: PA and lateral views of the chest are submitted. The lungs are expanded and clear. There is no pleural effusion, pneumothorax, or pulmonary vascular congestion. The heart is normal in size. There is mild degenerative disc disease of the spine. XR/XR chest 2V IMPRESSION: No acute cardiopulmonary abnormality. Electronically signed by: Yohannes Apple MD 01/22/2025 10:31 AM EDT RP Dictated By: Yohannes Apple MD Signed By: <Electronically signed by Yohannes Apple MD in OV> 01/22/25 1031 DD/ 1005 TD/TT: 01/22/25 1010 Museum Librarian: Nahum Fernandes MD IMG XR PROCEDURES Edited Result - Final * POCT Urinalysis (01/20/2025 6:52 PM EDT) Color, UA Yellow Clarity, UA Clear Glucose, UA Negative Bilirubin, UA Negative Ketones, UA Negative Spec Grav, UA 1.025 Blood, UA Negative Negative, None Detected pH, UA 5.5 Protein, UA Negative Urobilinogen, UA 0.2 Leukocytes, UA Negative Negative, Rare, Trace Nitrite, UA Negative Negative, None Detected Appearance, UA clear QC Media Lot # [id number] Lot# Expiration Date Urine 01/20/2025 6:52 PM EDT Nahum Fernandes MD POINT OF CARE TEST ENTER/EDIT OR DERABLES Final Result * Albumin, Random Urine W/Creatinine (11/09/2024 8:30 AM EST) Creatinine, Urine 143.02 mg/dL [facility] Microalbumin Urine 29.0 mg/L H [facility] Microalbum Creatinine Ratio Ur 20.2 <30 ug/mg cr [facility] Comment:Albumin/Creatinine R atio Reference Ranges: Normal: < 30 ug/mg creatinine Microalbuminuria: 30 - 300 ug/mg creatinineClinical Albuminuria: > 300 ug/mg creatinine Urine (Urine, Random) 11/09/2024 8:30 AM EST 11/09/2024 8:56 AM EST Lamar Kc MD LAB URINE ORDERABLES Final Re sult Performing Organization Address [facility] Co de Phone Number [facility] [address] [place] [phone] * Hepatic Function Panel (11/08/2024 7:31 AM EST) Bilirubin, Total 0.3 0.0 - 1.0 mg/dL [facility] Bilirubin, Direct 0.1 0.0 - 0.5 mg/dL [facility] Aspartate Amino Transferase 21 5 - 37 U/L [facility] Alanine Aminotransferase 24 0 - 40 U/L [facility] Total Protein 7.2 6.5 - 8.0 g/dL [facility] Albumin Level 4.1 3.5 - 5.0 g/dL [facility] Alkaline Phosphatase 102 39 - 117 U/L [facility] Blood Venous blood specimen / Unknown 11/08/2024 7:31 AM EST 11/08/2024 7:31 AM EST us Lamar Kc MD LAB BLOOD ORDERABLES Final Re sult Performing Organization Address [facility] Co de Phone Number [facility] [address] [place] [phone] Lipid Panel, Standard (11/08/2024 7:31 AM EST) Triglycerides 85 <150 mg/dL [facility] Comment:Desirable Triglyceri de: less than 150 mg/dLBorderline High Triglyceride 150-199 mg/dLHigh Triglyceride: 200-499 mg/dLVery High Triglyceride: greater than or equal to 5OO mg/dL Cholesterol 122 <200 mg/dL [facility] Comment:Desirable Cholestero l: less than 200 mg/dLBorderline High Cholesterol: 200-239 mg/dLHigh Cholesterol: greater than 239 mg/dL LDL Cholesterol Calculated 58 <100 mg/dL [facility] Comment:Desirable LDL: less than 100 mg/dLNear Optimal/Above Optimal LDL: 110- 129 mg/dLBorderline High LDL: 130-159 mg/dLHigh LDL: 160-189 mg/dLVery High LDL: greater than or equal to 190 mg/dL HDL Cholesterol 47 >40 mg/dL [facility] Comment:Desirable HDL: great er than 40 mg/dL Note: This HDL assay may give artificially low results in patients with liver disease. Blood Venous blood specimen / Unknown 11/08/2024 7:31 AM EST 11/08/2024 7:31 AM EST Lamar Kc MD LAB BLOOD ORDERABLES Final Re sult [facility] [address] [place] [phone] * (ABNORMAL) POCT Glucose (11/06/2024 9:51 AM EST) Pathologist [facility] Glucose Blood, POC 242(A) 60 - 200 [...] Date 101,826 Blood 11/06/2024 9:50 AM EST Lamar Kc MD POINT OF CARE TEST ENTER/EDIT ORDERABLES Final Result * Cologuard?? colon cancer screening (06/16/2023 9:59 AM EDT) Cologuard Result Negative Negative 06/24/20 1:41 AM EDT [facility] (CLIA #:[id number]) Comment: NEGATIVE TEST RESULT. A negative Cologuard [...] cancer. ??Following a negative Cologuard result, the [employer] and U.S. Multi-Society Task Force screening guidelines recommend a Cologuard re-screening interval of 3 years. References: [employer] Guideline for Colorectal Cancer Screening: https://www.cancer.org/cancer/tbfpz-nfxgim-jnmtkq/rlnjkjtqo-cdamfbjgu-zusqkux/ac s-rec ommendations.html.; Valente DK, Vianey CR, Jon LeeK, Colorectal Cancer Screening: Recommendations for Physicians and Patients from the U.S. Multi-Society Task Force on Colorectal Cancer Screening , Am J Gastroenterology 2017; 112:8765-8254. TEST DESCRIPTION: Composite algorithmic analysis of stool [...] (Leatha Taylor al, N Engl J Med 2014;370(14):3674-1839.) Cologuard may produce a false negative or false positive result (no colorectal cancer or precancerous polyp present at colonoscopy follow up). A negative Cologuard test result does not guarantee the absence of CRC or advanced adenoma (pre-cancer). The current Cologuard screening interval is every 3 years. ([employer] and U.S. Multi-Society Task Force). Cologuard performance data in a 10,000 patient pivotal study using colonoscopy as the reference method can be accessed at the following location: www.[employer]/results. Additional description of the Cologuard test process, warnings and precautions can be found at www.[employer].com. Stool specimen (specimen) 06/16/2023 9:59 AM EDT 06/17/2023 8:57 PM EDT us Patti Beth MD LAB MOLECULAR DIAGNOSTICS ORD ERABLES Final Result [facility] (CLIA #:[id number]) [address] [place] [address], * Hepatitis C Ab (05/01/2023 6:40 AM EDT) Hepatitis C Antibody Nonreactive Nonreactive [facility] Comment:Antibodies to HCV no t detected; does not exclude early acuteHCV infection. Blood 05/01/2023 6:40 AM EDT 05/01/2023 6:48 AM EDT us Patti Beth MD LAB BLOOD ORDERABLES Final Re sult Performing Organization Address [facility] Co de Phone Number [facility] [address] [place] [phone] * HIV Ab/Ag ([facility]) (05/01/2023 6:40 AM EDT) Pathologist [facility] HIV AB/AG Nonreactive Nonreactive [facility] Comment:HIV-1 p24 Ag and/or HIV-1/HIV-2 Ab not detected.A test result that is nonreactive does not exclude thepossibility of exposure to or infection with HIV-1 and/orHIV-2. Nonreactive results in this assay for individualswith prior exposure to HIV-1 and/or HIV-2 may be due toantigen and antibody levels that are below the limit ofdetection of this assay.The [employer] HIV Ag/Ab Combo assay result andsupplemental assay results should be interpreted inconjunction with the patient's clinical presentation,history and other laboratory results. If the results areinconsistent with clinical evidence, additional testing issuggested to confirm the result. 05/01/2023 6:40 AM EDT 05/01/2023 6:48 AM EDT us Patti Beth MD LAB BLOOD ORDERABLES Final Re sult Performing Organization Address [facility] Co de Phone Number [facility] [address] [place] [phone] * HP Diabetic Foot Exam (04/27/2023) Patti Beth MD HEALTH MAINTENANCE Final Resu lt from Last 3 Months or Most Recently Relevant to Health Maintenance Insurance [employer] [place] [id number] Care Teams Medical Resident Relationship Specialty Start Date End Date Patti Beth MD [address] [place] [phone] PCP - General Family Medicine 08/26/20
--- OUTSIDE RECORDS SUMMARY | 2025-01-22 10:45 | XMS_ITS | Encounter Summary ---
Author Organization [employer] Address [address] [facility] 7t [place] [address] Care Team Providers Care Distance Education Director Name Role Phone Patti Beth MD Primary Care Provider [phone] Encounter Details Date Type Department Care Team (Latest Contact Info) Description 01/20/2025 Travel Social History Tobacco Use Types Packs/Day [...] as of this encounter Plan of Treatment Upcoming Encounters Date Type Department Care Team (Late st Contact Info) Description 03/07/2025 3:15 PM EDT Office Visit [facility] [address] [place] [address] Patti Beth MD [address] [place] [address] documented as of this encounter Visit Diagnoses Not on filedocumented in this encounter Additional Health Concerns Assessment Noted Time PHQ-9 Depression Total Score: 0 11/06/19 25 9:44 AM EST documented as of this encounter Care Teams Distance Education Director Relationship Specialty Start Date End Date Patti Beth MD [address] [place] [address] PCP - General Family Medicine 08/26/20 documented as of this encounter
--- OUTSIDE RECORDS SUMMARY | 2025-01-22 10:45 | XMS_ITS | Encounter Summary ---
Author Organization [email or web address] Address [address] [place] [address] 7 [place] [address] Care Team Providers Care Study Manager Name Role Phone Patti Beth MD Primary Care Provider [phone] Reason for Visit * Reason Comments Med Refill Encounter Details Date Type Department Care Team (Late Contact Info) Description 11/17/2022 Refill [facility] [address] [place] [address] Patti Beth MD [address] [place] [address] Mixed hyperlipidemia (Primary Dx) Social History Tobacco [...] Encounters Date Type Department Care Team (Late Contact Info) Description 03/07/2025 3:15 PM EDT Office Visit [facility] [address] [place] [address] Patti Beth MD [address] [place], [place] [phone] documented as of this encounter Visit Diagnoses Diagnosis Mixed hyperlipidemia- Primary documented in this encounter Care Teams Study Manager Relationship Specialty Start Date End Date Patti Beth MD [address] [place] [address] PCP - General Family Medicine 08/26/20 documented as of this encounter
--- OUTSIDE RECORDS SUMMARY | 2025-01-22 10:45 | XMS_ITS | Encounter Summary ---
Author Organization [employer] Address [address] [facility] 7t [place] [address] Care Team Providers Care Complaint Coordinator Name Role Phone Patti Beth MD Primary Care Provider [phone] Encounter Details Date Type Department Care Team ([facility] st Contact Info) Description 05/06/2024 Orders Only [facility] [address] [place] [address] Provider, MD Vladimir Social History Tobacco Use Types Packs/Day Years [...] Description 03/07/2025 3:15 PM EDT Office Visit [facility] [address] [place] [address] Patti Beth MD [address] [place] [address] documented as of this encounter Procedures Procedure [...] documented as of this encounter Care Teams Complaint Coordinator Relationship Specialty Start Date End Date Patti Beth MD [address] [place] [address] PCP - General Family Medicine 08/26/20 documented as of this encounter
--- OUTSIDE RECORDS SUMMARY | 2025-01-22 10:45 | XMS_ITS | Encounter Summary ---
Author Organization [employer] Address [address] [place] [address] 7t [place] [address] Care Team Providers Care Refinery Operator Helper Cracking Unit Name Role Phone Patti Beth MD Primary Care Provider [phone] Reason for Referral * Imaging (Urgent) - Authorized Specialty Diagnoses / Procedures Referred By Contac t Referred To Contact Cardiology Diagnoses Pedal edema Procedures VASC US Lower Extremity Venous Duplex Bilateral Nahum Fernandes MD [address] [place] [address] Phone: tel: fax: [address] Phone: tel: fax: Referral ID Status Reason Start Date Expiration Date Visits Requested Visits Authorized [id number] Authorized Perform Procedure 01/20/2025 01/20/2026 1 1 Encounter Details Date Type Department Care Team (Late st Contact Info) Description 01/20/2025 5:40 PM EDT Office Visit [facility] [address] [place], [place] [phone] Nahum Fernandes MD [address] [place], [place] [phone] Pedal edema (Primary Dx); Acute bilateral low back pain without sciatica Social History Tobacco Use Types Packs/Day Years [...] Mass Index 30.1 01/20/2025 5:19 PM EDT documented in this encounter Progress Notes * Nahum Fernandes MD - 01/20/2025 5:40 PM EDT Subjective History was provided by the patient. Shane Delgado is a 64 y.o. male who presents for evaluation of bilateral pedal edema and lower back pain for 2 weeks. Noticed sock elastic indentations. Denies calf pain. States he recently returned from a long distance driving to [place] 2 weeks ago when the onset of his symptoms. Denies CP/SO/NEWMAN. Denies F/C/N/V/D. Also with pain in the SI joint area bilaterally. Denies any trauma or fall. Qing weathers suspects pain from prolonged sitting during his recent travel. Currently on Amlodipine 10mg daily, but has been on this medication for many years. Denies any new medications. No trauma or fall. Underlying JAVIER, HTN, GERD, T2 DM (last Hgb A1c 6.4 in 10/2024), and history of prostate CA. Objective Vitals: 01/20/25 1719 BP: 111/79 BP Location: Left arm Patient Position: Sitting BP Cuff Size: Adult Pulse: 84 Resp: 20 Temp: 97.8 ??F (36.6 ??C) TempSrc: Oral SpO2: 97% Weight: 194 lb (88 kg) Height: 5' 7.32 (1.71 m) Physical Exam Vitals reviewed. Constitutional: General: He is not in acute distress. Appearance: Normal appearance. He is not ill-appearing, toxic-appearing or diaphoretic. HENT: Head: Normocephalic and atraumatic. Right Ear: External ear normal. Left Ear: External ear normal. Nose: Nose normal. Mouth/Throat: Mouth: Mucous membranes are moist. Pharynx: Oropharynx is clear. Eyes: Extraocular Movements: Extraocular movements intact. Conjunctiva/sclera: Conjunctivae normal. Cardiovascular: Rate and Rhythm: Normal rate and regular rhythm. Heart sounds: Normal heart sounds. Pulmonary: Effort: Pulmonary effort is normal. Breath sounds: Normal breath sounds. Musculoskeletal: General: Tenderness (at bilateral SI joint areas (no deformity, scoliosis, or lordosis); negative straight leg raise) present. Normal range of motion. Cervical back: Normal range of motion and neck supple. Right lower leg: Edema (Very trace, non-pitting edema) present. Left lower leg: Edema (Very trace, non-pitting edema) present. Comments: Negative Virginia's; no calf tenderness bilaterally; no cords Skin: General: Skin is warm and dry. Neurological: General: No focal deficit present. Mental Status: He is alert and oriented to person, place, and time. Motor: No weakness. Gait: Gait normal. Psychiatric: Mood and Affect: Mood normal. Behavior: Behavior normal. Diagnoses and all orders for this visit: Pedal edema (Primary) - Basic Metabolic Panel; Future - CBC auto differential; Future - XR Chest 2 Views; Future - Cancel: VASC US Lower Extremity Venous Duplex Bilateral; Future - VASC US Lower Extremity Venous Duplex Bilateral; Future - POCT Urinalysis Acute bilateral low back pain without sciatica - Diclofenac Sodium 1 % gel; Apply 1 Application topically if needed in the morning, at noon, in the evening, and at bedtime (lower back pain and lateral thigh pain) for up to 14 days. Patient presents to [facility] due to trace bilateral pedal edema Recent drive to [place] at the onset of his symptoms 2 weeks ago Negative calf tenderness, negative Virginia's, and no cords POC UA negative for proteinuria Normal pulmonary exam without respiratory distress Will check CXR Will also check CBC/BMP Urgent Venous Dopper U/S BLE to rule out DVT Discussed about indications for UC/ER use Advised to seek care in ER if worsening edema or if he develops CP/SOB/NEWMAN Diclofenac topical Rx for SI joint pain Advised to contact the clinic if persistent or worsening symptoms documented in this encounter Plan of Treatment Upcoming Encounters Date Type Department Care Team (Late st Contact Info) Description 03/07/2025 3:15 PM EDT Office Visit [facility] [address] [place] [address] Patti Beth MD [address] [place] [address] Scheduled Orders Name Type Priority Associated Diagnoses Orde r Schedule Basic Metabolic Panel Lab Routine Pedal edema Expected: 01/20/2025 (Approximate), Expires: 01/20/2026 CBC auto differential Lab Routine Pedal edema Expected: 01/20/2025 (Approximate), Expires: 01/20/2026 documented as of this encounter Procedures Procedure Name Priority Date/Time Associated Diagnosis Comments XR CHEST 2 VIEWS Routine 01/22/2025 10:0 5 AM EDT Pedal edema POCT URINALYSIS DIPSTICK Routine 01/20/2025 6:52 PM EDT Pedal edema documented in this encounter Results * XR Chest 2 Views (01/22/2025 10:05 AM EDT) Anatomical Region Laterality Modality Chest Radiographic Lynnette ging 01/22/2025 10:0 5 AM EDT Narrative 01/22/2025 10:34 AM EDT ? [facility] ?[address] ?[place] [address] ?XRay Report ? Signed ? Patient: Shane Delgado ?MR#: [id number] ?? [id number] ? : 1960 ?Acct:[id number] ? Age/Sex: 64 / M ?ADM Date: 01/22/25 ? Loc: HO.[facility]CL ? Attending Dr: Nahum Fernandes MD ? Ordering Physician: Nauhm Fernandes MD ?? Date of Service: 01/22/25 ?? Procedure(s): XR chest 2V ?? Accession Number(s): [id number] ? cc: Nahum Fernandes MD ? EXAMINATION: [...] ??Yohannes Apple MD ??01/22/2025 10:31 AM EDT ?? RP ? Dictated By: ?Yohannes Apple MD ? Signed By: ?<Electronically signed by Yohannes Apple MD in OV> ?01/22/25 1031 ? DD/ 1005 ? TD/TT: 01/22/25 1010 ? Pinion Sorter: ? Procedure Note Donotuseinterpreter, Image - 01/22/[address] [address] XRay Report Signed Patient: Shane Delgado EMR#: [id number] : 1960cct:[id number] Age/Sex: 64 / MADM Date: 01/22/25 Loc: .[facility] Attending Dr: Nahum Fernandes MD Ordering Physician: Nahum Fernandes MD Date of Service: 01/22/25 Procedure(s): XR chest 2V Accession Number(s): [id number] cc: Nahum Fernandes MD EXAMINATION: XR CHEST [...] Yohannes Apple MD 01/22/2025 10:31 AM EDT Dictated By: Yohannes Apple MD Signed By: <Electronically signed by Yohannes Apple MD in OV> 01/22/25 1031 DD/ 1005 TD/TT: 01/22/25 1010 Pinion Sorter: Nahum Fernandes MD IMG XR PROCEDURES Edited [...] CARE TEST ENTER/EDIT OR DERABLES Final Result documented in this encounter Visit Diagnoses Diagnosis Pedal edema- Primary Edema Acute bilateral low back pain without sciatica documented in this encounter Additional Health Concerns Assessment Noted Time PHQ-9 Depression Total Score: 0 11/06/19 25 9:44 AM EST documented as of this encounter Care Teams Refinery Operator Helper Cracking Unit Relationship Specialty Start Date End Date Patti Beth MD [address] [place] [address] PCP - General Family Medicine 08/26/20 documented as of this encounter
--- OUTSIDE RECORDS SUMMARY | 2025-01-22 10:45 | XMS_ITS | Encounter Summary ---
Author Organization [employer] Address [address] [facility] 7t [place] [address] Care Team Providers Care Truck Safety Inspector Name Role Phone Patti Beth MD Primary Care Provider [phone] Reason for Visit * Reason Onset Date Comments Walk-In 01/20/2025 Encounter Details Date Type Department Care Team ([facility] st Contact Info) Description 01/20/2025 Telephone [facility] [address] [place], [place] [phone] Patti Beth MD [address] [place] [address] Walk-In Social History Tobacco Use Types Packs/Day Years [...] AM EDT documented as of this encounter Miscellaneous Notes * Telephone Encounter - Sudha Sprague RN - 01/20/2025 9:31 AM EDT Pt walked into [facility] office. Alert and breathing without noted distress. Pt states 2-3 weeks ago he noticed that his legs are swollen, even after standing for just the morning he has noticed an indent on the line of his socks. Pt states that even when sitting for long periods of time, he has pain in his entire leg and when putting socks on pain shoots down his leg to his foot. Pt denies recent injury, denies cigarette and alcohol use. +2 pedal and popletiel pulses bilaterally. No pitting edema noted. Noted faint line indent on where socks were. When pt ambulates does favor left leg to avoid weight placed on right leg. No redness noted, no swelling noted on calves or knees bilaterally. Pt advised to go to walk in clinic as [facility] has no appointments today. Pt stated it would be after 4pm as he picks up his grandchildren today. Appt for WIC given for 5PM. * Telephone Encounter - Rehilary Yonatan - 01/20/2025 9:12 AM EDT Pt walked in stating his calves have been swollen for 2wks and is having a hard time walking. Pt ishere sitting in waiting area. documented in this encounter Plan of Treatment Upcoming Encounters Date Type Department Care Team (Late st Contact Info) Description 03/07/2025 3:15 PM EDT Office Visit [facility] [address] [place] [address] Patti Beth MD [address] [place] [address] documented as of this encounter Visit Diagnoses Not on filedocumented in this encounter Additional Health Concerns Assessment Noted Time PHQ-9 Depression Total Score: 0 11/06/19 25 9:44 AM EST documented as of this encounter Care Teams Truck Safety Inspector Relationship Specialty Start Date End Date Patti Beth MD [address] [place] [address] PCP - General Family Medicine 08/26/20 documented as of this encounter
--- OUTSIDE RECORDS SUMMARY | 2025-01-22 10:45 | XMS_ITS | Encounter Summary ---
Author Organization [employer] Address [address] [place] [address] 7t [place] [address] Care Team Providers Care Tire Mounter Name Role Phone Patti Beth MD Primary Care Provider [phone] Encounter Details Date Type Department Care Team ([facility] Contact Info) Description 01/16/2023 Orders Only [facility] MED & PEDS [address] [place], [place] [phone] Elizabeth Rodriguez MD [address] [place], [place] [phone] Closed fracture of malleolus of right ankle, [...] Upcoming Encounters Date Type Department Care Team ([facility] Contact Info) Description 03/07/2025 3:15 PM EDT Office Visit [facility] MED [facility] PEDS [address] [place], [place] [phone] Patti Beth MD [address] [place] [address] documented as of this encounter Visit Diagnoses Diagnosis Closed fracture of malleolus of right ankle, initial encounter- Primary documented in this encounter Care Teams Tire Mounter Relationship Specialty Start Date End Date Patti Beth MD [address] [place] [address] PCP - General Family Medicine 08/26/20 documented as of this encounter
[2025-01-22 10:57] LABS: MANUAL DIFF FLAG NO
[2025-01-22 11:04] LABS: Basophils Percent Auto 0.5 % (0-2); Eosinophils Absolute Auto 0.3 X10*3/uL (0.0-0.4); Eosinophils Percent Auto 4.3 % (0-4); Hematocrit 41.5 % (42.0-52.0); Hemoglobin 14.1 g/dl (14.0-18.0); Imm Gran Abs Auto 0.01 X10*3/uL (0.00-0.03); Imm Gran Pct Auto 0.2 % (0.0-0.4); Lymphocytes Absolute Auto 1.7 X10*3/uL (1.2-4.9); Lymphocytes Percent Auto 29.3 % (20-40); Mean Corpuscular Hemoglobin 29.7 pg (27.0-33.0); Mean Corpuscular Volume 87.6 fL (80.0-98.0); Mean Platelet Volume 9.6 fL (9.4-12.4); Monocytes Absolute Auto 0.4 X10*3/uL (0.1-1.2); Monocytes Percent Auto 7.4 % (2-11); Neutrophils Absolute Auto 3.4 x10*3/uL (2.0-8.3); Neutrophils Percent Auto 58.3 % (45-73); Platelet Count 253 X10*3/uL (160-400); Red Blood Count 4.74 X10*6/uL (4.60-5.80); Red Cell Distribution Width 12.8 % (11.0-16.0); White Blood Count 5.8 X10*3/uL (4.8-10.8)
[2025-01-22 11:23] LABS: Anion Gap 12 (12-20); Blood Urea Nitrogen 19 mg/dL (9-16); Calcium 9.2 mg/dL (8.4-10.2); Carbon Dioxide 24 mmol/L (22-29); Chloride 107 mmol/L (96-108); Estimated Glomerular Filt Rate > 60; Glucose Random 216 mg/dL (60-115); Sodium 139 mmol/L (135-145)
== END 2025-01-22 09:56 | disposition home or self-care (01) ==
LOC: HO.HHCL 09:55
PROVIDERS: Visit Provider Family Medicine
DX: R60.0 Localized edema (principal)
CPT/HCPCS: 36415; 71046; 80048; 85025

== ENCOUNTER → 2025-01-22 10:05 | Outpatient (BNV) | payer OTHER, SELFPAY | PROVIDERS: Visit Provider Radiology Diagnostic Radiology | DX: M51.369 Other intervertebral disc degeneration, lumbar region without mention of lumbar back pain or lower extremity pain (principal) | CPT/HCPCS: 71046 ==

== ENCOUNTER 2025-01-27 06:37 | Outpatient (REF) | payer OTHER, SELFPAY ==
[2025-01-27 07:24] LABS: Hematocrit 45.2 % (42.0-52.0); Mean Corpuscular HGB Conc 33.2 g/dl (31.0-36.0); Mean Corpuscular Hemoglobin 29.8 pg (27.0-33.0); Mean Corpuscular Volume 89.7 fL (80.0-98.0); Mean Platelet Volume 9.7 fL (9.4-12.4); Platelet Count 286 X10*3/uL (160-400); Red Blood Count 5.04 X10*6/uL (4.60-5.80); Red Cell Distribution Width 12.7 % (11.0-16.0); White Blood Count 7.2 X10*3/uL (4.8-10.8)
[2025-01-27 08:11] LABS: Prostate Specific Antigen 0.59 ng/mL (<0.05-4.0)
[2025-02-01 16:53] LABS: Testosterone, Free 45.5 pg/mL (35.0-155.0); Testosterone, Total 314 ng/dL (250-1100)
== END 2025-01-27 06:38 | disposition home or self-care (01) ==
LOC: HO.LAB 06:37
PROVIDERS: PCP Family Medicine; Visit Provider Nurse Practitioner Family
DX: C61 Malignant neoplasm of prostate (principal); E29.1 Testicular hypofunction; Z12.5 Encounter for screening for malignant neoplasm of prostate
CPT/HCPCS: 36415; 84153; 84402; 84403; 85027

== ENCOUNTER 2025-01-29 07:08 | Outpatient (REF) | payer OTHER, SELFPAY ==
--- NOTE | ~2025-01-29 | US_ITS ---
EXAMINATION: US TRIPLEX LOWER EXTREMITY, BILATERAL CLINICAL INFORMATION: Edema, bilateral lower extremities. COMPARISON: Doppler venous ultrasound left lower extremity dated December 28, 2017. TECHNIQUE: Color-flow triplex imaging with spectral analysis and compression Doppler were performed on the bilateral lower extremities. FINDINGS: Respiratory variation, normal compression and augmented flow are present throughout the interrogated common femoral vein, superficial femoral vein, profunda femoral vein, popliteal vein and midcalf peroneal and posterior tibial venous segments, both lower extremities. There is no Palumbo's cyst. US/US venous duplex LE BI IMPRESSION: No acute deep venous thrombosis in the interrogated veins, bilateral lower extremities. Negative for DVT. Electronically signed by: Alphonse Tovar MD 01/29/2025 07:50 AM EDT
== END 2025-01-29 07:09 | disposition home or self-care (01) ==
LOC: HO.US 07:08
PROVIDERS: PCP Family Medicine; Visit Provider Family Medicine
DX: R60.0 Localized edema (principal)
CPT/HCPCS: 93970

== ENCOUNTER → 2025-01-29 07:13 | Outpatient (BNV) | payer OTHER, SELFPAY | PROVIDERS: PCP Family Medicine; Visit Provider Radiology Diagnostic Radiology | DX: R60.0 Localized edema (principal) | CPT/HCPCS: 93970 ==

== ENCOUNTER 2025-02-17 08:14 | Outpatient (AMB) | payer OTHER, SELFPAY ==
--- OUTSIDE RECORDS SUMMARY | 2025-02-17 08:20 | XMS_ITS | Encounter Summary ---
Author Organization [employer] Address [address] [place] [address] 7 [place] [address] Care Team Providers Care Cardiovascular Rn Name Role Phone Patti Beth MD Primary Care Provider [phone] Encounter Details Date Type Department Care Team ([facility] Contact Info) Description 01/16/2023 Orders Only [facility] MED & PEDS [address] [place], [place] [phone] Elizabeth Rodriguez MD [address] [place], [place] [phone] Closed fracture of malleolus of right ankle, [...] Upcoming Encounters Date Type Department Care Team ([facility] Contact Info) Description 03/07/2025 3:15 PM EDT Office Visit [facility] MED [facility] PEDS [address] [place], [place] [phone] Patti Beth MD [address] [place] [address] documented as of this encounter Visit Diagnoses Diagnosis Closed fracture of malleolus of right ankle, initial encounter- Primary documented in this encounter Care Teams Cardiovascular Rn Relationship Specialty Start Date End Date Patti Beth MD [address] [place] [address] PCP - General Family Medicine 08/26/20 documented as of this encounter
--- NOTE | 2025-02-17 08:39 | MHC.OFFVIS ---
Intake Visit Reasons: 6m/labs/PVR Intake Note: Patient presents today for follow up on: prostate cancer, hypogonadism, and lab results Testosterone: 314; Free testosterone: 45.5 PSA: 0.59 Urology Medication:Testosterone, Terazosin Antibiotic Allergy:PENICILLIN Blood Thinner:NONE PVR: 17ml's Foreclosure Clerk Required: No Accompanied by: Self / Same As Patient Allergies Penicillins [PENICILLINS] Allergy (Severe, Verified 02/17/25 09:08) RASH Medication List - Last Reconciled 02/17/25 by TERENCE Mckeon-HALLE alcohol swabs (BD Alcohol Swabs) 0 pad topical amlodipine 10 mg PO DAILY blood sugar diagnostic As directed celecoxib 100 mg PO BID cholecalciferol (vitamin D3) (Vitamin D3) 50 mcg PO DAILY clotrimazole 1% appl topical BID dulaglutide (Trulicity) mg subcut ketoconazole 2% appl topical lancets As directed lisinopril 20 mg PO DAILY lorazepam 0.5 mg PO BEDTIME PRN metformin 500 mg PO montelukast 10 mg PO DAILY pantoprazole 20 mg PO DAILY quetiapine 50 mg PO BEDTIME rosuvastatin 10 mg PO DAILY safety needles As directed-draw up needle terazosin 5 mg PO BEDTIME 90 days testosterone 3 pumps topical DAILY 30 days HPI Comments Details: Shane is a pleasant 64 year old male patient of Dr. Llanes. He has a past medical history of hyperlipidemia, hypertension, type 2 diabetes, atherosclerotic cardiovascular disease, hypogonadism, and prostate cancer. He presents to the office today for follow-up of his hypogonadism, prostate cancer, and lower urinary tract symptoms. In discussion with the patient today he reports to be doing and feeling well. He denies any bothersome urinary issues or concerns. He reports be happy with current voiding parameters on 5 mg of terazosin. He reports compliance with testosterone as prescribed. Recent labs were reviewed with the patient today as noted and trended below. In office urinalysis results were reviewed with the patient today. PVR 17 mL He denies urinary urgency, urinary frequency, incontinence, nocturia, hematuria, dysuria, foul smelling urine, changes to urinary stream, flank pain, fever, and or chills. He otherwise offers no other issues or concerns at this time. Prostate cancer Initial diagnosis 2014 Initial therapy external beam radiation Remained at low testosterone following therapy PSA/Testosterone levels: 02/28 0.7, 03/31 0.5, 08/31 0.8, 03/02 T 136 P 0.7, 09/01 T 1540 P 1.2, 03/03 T 1903 P 0.8, 04/02 T 65, 06/03 T 224 P 0.4, 10/04 T 264, 01/02 0.4, 01/02 T 429, 08/04 PSA 0.4 T 420, 02/02 PSA 0.6 T 314 CBC: -H/H 10/04 14.6 & 43.4, 01/02 15.1 & 44.4, 08/04 14.7/43.8, 02/02 15.0/45.2 Continues with low PSA. This suitable candidate for testosterone replacement Hypogonadism Diagnosed following radiation therapy Initial therapy testosterone injections [facility] Medical History (Updated 02/17/25 @ 09:07 by Holly Delaney [facility]) Hypogonadism in male Other and unspecified hyperlipidemia Type 2 diabetes mellitus with unspecified complications Perianal cyst HTN (hypertension) Arthritis Hypogonadism in male Carpal tunnel syndrome Dysphasia Colon cancer screening Rectal pain Prostate cancer Bladder outlet obstruction Erectile dysfunction Surgical History History of surgery History of tympanoplasty Hx of carpal tunnel repair Family History Father Prostate cancer Mother Uterine cancer Paternal Grandfather Lung cancer Paternal Grandmother Breast cancer Maternal Grandfather Brain cancer Maternal Grandmother Throat cancer HTN (hypertension) Social History Alcohol intake: never Patient Tobacco Use Status: Never used Tobacco Current occupational status: employed Current occupation: security /left hand Review of Systems Const Reports as per HPI Eyes Reports no additional complaints ENT Reports no additional complaints Card Reports as per HPI Resp Reports no additional complaints GI Reports no additional complaints Reports as per HPI Musc Reports no additional complaints Neuro Reports no additional complaints Psych Reports no additional complaints Endo Reports as per HPI Mike/Lymph Reports no additional complaints Aller/Immun Reports no additional complaints Physical Exam Const General: cooperative, healthy appearing, comfortable, no acute distress, well developed, alert and awake Orientation/consciousness: patient oriented x3 Limitations: no limitations HEENT Head: Yes normal to inspection, Yes normocephalic and Yes atraumatic Ears: hearing grossly normal bilaterally Eyes General: appearance normal, both eyes and all related structures Neck Neck: Yes normal visual inspection and Yes trachea midline Chest Chest palpation & inspection: normal inspection of the chest Resp Effort & Inspection: normal respiratory effort and able to speak in complete sentences Cardio Rate: regular rate GI Inspection: Yes normal to inspection General: Yes no CVA tenderness Back/Spine/Pelvis Back: no CVA tenderness Skin General skin exam: no rashes or lesions noted Neuro General: patient oriented x3 Extrem General: Yes normal to inspection Psych Appearance: grossly normal and well kempt Mental Status: mental status grossly normal Speech and movement: Normal speech and movement present and Clear speech present Affect: normal affect Attitude: cooperative Thought process: Normal thought process present Thought content: Normal thought content present Insight: Fair insight present (Psych) Judgement: Fair judgement present (Psych) Office Procedures Post Void Residual Post Residual Void Post Void Residual (PVR): 17 31871-Kakh Void Residual by ultrasound Results AMB Urinalysis, Automated UA Leukoctes 0 Tereso/uL Last Edit by Gabe Le [facility] on 02/17/25 08:56 UA Nitrite Last Edit by Gabe Le [facility] on 02/17/25 08:56 UA Urobilinogen 0.2 mg/dL Last Edit by Gabe Le [facility] on 02/17/25 08:56 UA Protein 15 mg/dL Last Edit by Gabe Le [facility] on 02/17/25 08:56 UA pH 5.5 Last Edit by Gabe Le [facility] on 02/17/25 08:56 UA Blood 0 Jeffery/uL Last Edit by Gabe Le [facility] on 02/17/25 08:56 UA Specific Lorado 1.025 Last Edit by Gabe Le [facility] on 02/17/25 08:56 UA Ketone Last Edit by Gabe Le [facility] on 02/17/25 08:56 UA Bilirubin 0 mg/dL Last Edit by Gabe Le [facility] on 02/17/25 08:56 UA Glucose 0 mg/dL Last Edit by Gabe Le [facility] on 02/17/25 08:56 Results Reviewed Results Reviewed: Laboratory Last Values Urine pH (Auto) 5.5 02/17/25 08:55 Specific Lorado (Auto) 1.025 02/17/25 08:55 Urine Protein (Auto) 15 mg/dL 02/17/25 08:55 Glucose (UA)(Auto) 0 mg/dL 02/17/25 08:55 Urine Blood (Auto) 0 Jeffery/uL 02/17/25 08:55 Urine Bilirubin (Auto) 0 mg/dL 02/17/25 08:55 Urine Urobilinogen (Auto) 0.2 mg/dL 02/17/25 08:55 Leukocyte Esterase (Auto) 0 Tereso/uL 02/17/25 08:55 Assessment & Plan Assessment & Plan (1) Hypogonadism in male: Code(s): E29.1 - Testicular hypofunction Category: Medical (2) Prostate cancer: Code(s): C61 - Malignant neoplasm of prostate Category: Medical Plan In office urinalysis results reviewed with the patient today; as noted above. PVR 17 mLs. Patient reports be happy with current voiding parameters on 5 mg of terazosin; will continue; refill provided. Patient currently denies any bothersome urinary issues or concerns. Will continue with surveillance monitoring of PSA, CBC, testosterone free and total for history of hypogonadism as well as prostate cancer. Continue testosterone therapy as discussed and prescribed; will increase to 3 pumps per day Will obtain PSA, CBC, testosterone free and total in 3 months. Follow-up in 3 months with labs to be completed prior; or sooner with any issues, concerns, and or questions. Orders: Orders AMB Urinalysis Automated Today Z13.9 - Encounter for screening, unspecified Testosterone, Free/Total 3 Months C61 - Malignant neoplasm of prostate, E29.1 - Testicular hypofunction Prostate Specific Antigen 3 Months C61 - Malignant neoplasm of prostate, E29.1 - Testicular hypofunction AMB Post Void Residual by ultrasound Today N40.1 - Benign prostatic hyperplasia with lower urinary tract symptoms, R39.11 - Hesitancy of micturition Complete Blood Count no Diff 3 Months E29.1 - Testicular hypofunction Medications: Refilled testosterone apply 3 pumps over max area - alternate shoulders on alternate days 3 pumps topical DAILY 75 grams 5RF 30 days E29.1 - Testicular hypofunction, R79.89 - Other specified abnormal findings of blood chemistry Patient Instructions: The patient had an opportunity to ask questions regarding the treatment plan. All questions were answered. Physical exam, labs, and imaging were discussed and reviewed in detail. As well as risks, benefits, and discussion of treatment choices. No major barriers to understanding were identified. The patient expressed understanding and agreement with the above treatment plan. The patient was made aware they should contact our office by phone for worsening of their current condition, the appearance of new symptoms, or with any questions or concerns. Compliance is encouraged with any medications and follow up testing that is ordered. It is a privilege to be allowed the opportunity to participate in? your urological care.? Again, if you have any questions or concerns If you have any questions or concerns please do not hesitate to contact me. The office is [phone]. This note is constructed using voice recognition software. While every effort has been made to ensure accuracy fork repairer errors may have been included. Yours sincerely, PACO Mckeon Coding Level of Care Code Est Pt Level 3 (03883) Complex EM visit Add On G2211 Diagnoses Hypogonadism in male E29.1 Prostate cancer C61 CPT Codes Post Residual Void - PVR CPT Code: 01068-Lydp Void Residual by ultrasound ([id number])
== END 2025-02-17 09:06 | disposition home or self-care (01) ==
LOC: HO.HUSH 08:15
PROVIDERS: PCP Family Medicine; Visit Provider Nurse Practitioner Family
DX: E29.1 Testicular hypofunction (principal); C61 Malignant neoplasm of prostate; Z13.9 Encounter for screening, unspecified
CPT/HCPCS: 99213; G2211

== ENCOUNTER → 2025-02-17 08:14 | Outpatient (BNVA) | payer OTHER, SELFPAY | PROVIDERS: PCP Family Medicine; Visit Provider Nurse Practitioner Family | DX: C61 Malignant neoplasm of prostate (principal); E29.1 Testicular hypofunction | CPT/HCPCS: 51798; 81003; 99212 ==

== ENCOUNTER 2025-03-10 06:47 | Outpatient (REF) | payer OTHER, SELFPAY ==
--- NOTE | ~2025-03-10 | XR_ITS ---
CLINICAL HISTORY: 64 yo M with R sided back pain radiating down to his hip, send to [facility] 2 view, pelvis and right hip Comparison: CT/[place]/SR - CT ABDOMEN PELVIS W IV CON - 02/15/24 09:59 EDT Findings: No acute fracture or dislocation. There is wove-do-izwzjyyj narrowing of the acetabulofemoral joint. There are productive bony changes in the lateral acetabulum. There are productive bony changes in the greater trochanter. A circumscribed irregular sclerotic density in the intertrochanteric region is overall stable d compared to above-mentioned CT, allowing for modality differences. Multiple clips or brachytherapy seeds in the region of the prostate gland. IMPRESSION: 1. No acute fracture or dislocation. 2. Crqk-fb-ymrcsxsa arthritic changes. 3. Stable nonspecific sclerotic lesion in the proximal femur. This document has been electronically signed by: Lillian Bustos DO on 03/10/2025 14:03:12
--- NOTE | ~2025-03-10 | XR_ITS ---
CLINICAL HISTORY: 64 yo M with pain tenderness on metatarsal, [place] [facility] [place] 3 [place] right foot 3 view left foot Comparison: None provided Findings: No fractures or dislocations. Mild degenerative changes bilaterally. No ankle effusion. No radiopaque foreign body. 1.8 cm right and 1.0 cm left Achilles tendon enthesophytes. 1.0 cm right and 1.1 cm left plantar tendon enthesophytes. IMPRESSION: 1. No acute fracture or dislocation. 2. Large bilateral calcaneal spurs. This document has been electronically signed by: Lillian Bustos DO on 03/10/2025 13:57:48
--- NOTE | ~2025-03-10 | XR_ITS ---
CLINICAL HISTORY: CHRONIC LOW BACK PAIN 5 views lumbar spine Comparison: CT/[place]/SR - CT ABDOMEN PELVIS W IV CON - 02/15/24 09:59 EDT Findings: Straightening of the normal lordosis is either due to muscle spasm or positioning. Satisfactory vertebral body alignment. No acute fractures or dislocation. No significant vertebral body compression deformity. Mild L5-S1 disc space narrowing. Moderate multilevel facet degenerative changes. Multilevel anterior endplate osteophytes most prominent at L3-4. Densely calcified vas deferens can be associated with diabetes mellitus. IMPRESSION: No acute fracture in the lumbar spine. This document has been electronically signed by: Lillian Bustos DO on 03/10/2025 14:09:50
--- OUTSIDE RECORDS SUMMARY | 2025-03-10 06:50 | XMS_ITS | Encounter Summary ---
Author Organization [employer] Address [address] [place] [address] 7 [place] [address] Care Team Providers Care Cigarette Catcher Name Role Phone Patti Beth MD Primary Care Provider [phone] Encounter Details Date Type Department Care Team ([facility] st Contact Info) Description 01/16/2023 Orders Only [facility] CH[facility] MED & PEDS [address] [place], [place] [phone] Elizabeth Rodriguez MD [address] [place] [address] Closed fracture of malleolus of right ankle, [...] Primary documented in this encounter Care Teams Cigarette Catcher Relationship Specialty Start Date End Date Patti Beth MD [address] [place] [id number] PCP - General Family Medicine 08/26/20 documented as of this encounter
== END 2025-03-10 06:48 | disposition home or self-care (01) ==
LOC: HO.XRAY 06:47
PROVIDERS: PCP Family Medicine; Visit Provider Family Medicine
DX: M54.50 Low back pain, unspecified (principal); G89.29 Other chronic pain; M89.8X7 Other specified disorders of bone, ankle and foot
CPT/HCPCS: 72110; 73502; 73630

== ENCOUNTER → 2025-03-10 06:52 | Outpatient (BNV) | payer OTHER, SELFPAY | PROVIDERS: PCP Family Medicine; Visit Provider Radiology Diagnostic Radiology | DX: M54.50 Low back pain, unspecified (principal); G89.29 Other chronic pain; M16.11 Unilateral primary osteoarthritis, right hip; M89.9 Disorder of bone, unspecified; M77.31 Calcaneal spur, right foot; M77.32 Calcaneal spur, left foot | CPT/HCPCS: 72110; 73502; 73630 ==

== ENCOUNTER 2025-04-28 07:08 | Outpatient (REF) | payer OTHER, SELFPAY ==
--- OUTSIDE RECORDS SUMMARY | 2020-07-29 15:14 | XMS_ITS | Encounter Summary ---
Author Organization [facility] Address [address] [place] [address] Phone Care Team Providers Care Sill Worker Name Role Phone Pura Campos CNP Primary Care Provider Encounter Details Date Type Department Care Team (Late st Contact Info) Description 07/29/2020 2:14 PM [facility] Hospital Encounter [facility] [address] [place] [address] Alexei Boyer PA-C [address] [place] [address] [email or web address] Social History Tobacco Use Types Packs/Day [...] lower lumbar spine, as described above. Alexei Boyer PA-C IMG XR SPINE Final Res ult documented in this encounter Visit Diagnoses Not on filedocumented in this encounter Care Teams Sill Worker Relationship Specialty Start Date End Date Pura Campos, MATTRESS WEAVER [address] [address] [email or web address] PCP - General Family Medicine 07/29/20 documented as of this encounter Additional Source Comments The information contained in this document represents components of the legal health record. It is not the complete legal health record.[facility]
--- OUTSIDE RECORDS SUMMARY | 2025-04-28 07:10 | XMS_ITS | Clinical Summary ---
Author Organization [facility] Address [address] [place] [address] Phone Care Team Providers Care Seaman Officer Name Role Phone Patti Beth MD Primary Care Provider [phone] Social History Tobacco Use Types Packs/Day Years Used Date Smoking Tobacco: Never Assessed Sex and Gender Information Value Date Recorded Sex Assigned at Not on file Legal Sex Male 6:17 PM EST Gender Identity Not on file Sexual Orientation Not on file Plan of Treatment Upcoming Encounters Date Type Department Care Team ([facility] Contact Info) Description 06/03/2025 8:45 AM EDT Consult Orthopedic Surgery - [place] [phone] [phone] Adal Henley, DPM [address] [address] Health Maintenance Due Date Last Done Comments DTaP,Tdap,and Td Vaccines (1 - Tdap) 1980 Pneumococcal Vaccine: 50+ Ye ars (1 of 1 - PCV) 2011 Zoster Vaccines (1 of 2) 2011 COVID-19 Vaccine ( - 2023-2 5 season) 2024 Depression Screening 09/11/2024 Cholesterol Screening (Lipid Panel) 03/29/2025 Colorectal Cancer Screening: Colonoscopy 03/29/2025 HIV Screening 03/29/2025 Hepatitis C Screening 03/29/2025 Social Influencers of Health Screening 03/29/2025 Influenza Vaccine (#1) 2025 RSV Immunization Adult Patie nts (1 - 1-dose 75+ series) 2036 HIB Vaccines Aged Out No longer eligi ble based on patient's age to complete this topic HPV Vaccines Aged Out No longer eligi ble based on patient's age to complete this topic Hepatitis A Vaccines Aged Out No long er eligible based on patient's age to complete this topic Hepatitis B Vaccines Aged Out No long er eligible based on patient's age to complete this topic IPV Vaccines Aged Out No longer eligi ble based on patient's age to complete this topic MMR Vaccines Aged Out No longer eligi ble based on patient's age to complete this topic Meningococcal ACWY Vaccine Aged Out N o longer eligible based on patient's age to complete this topic Meningococcal B Vaccine Aged Out No l onger eligible based on patient's age to complete this topic RSV Immunization Patients Un james 20 months Aged Out No longer eligible b ased on patient's age to complete this topic Varicella Vaccines Aged Out No longer eligible based on patient's age to complete this topic Insurance [facility] Member Subscriber Plan / Payer (Ef fective 2014-Present) Name:SHANE BARTLETT Relation to Subscriber:Self Name:Shane Bartlett Payer ID:[id number] Group ID:[id number] Type:Not on file Address: [place] [address] [id number] Care Teams Seaman Officer Relationship Specialty Start Date End Date Patti Beth MD [address] [place] [id number] PCP - General Family Medicine 03/11/25
--- OUTSIDE RECORDS SUMMARY | 2025-04-28 07:10 | XMS_ITS | Encounter Summary ---
Author Organization [employer] Address [address] [place] [address] 7 [place] [address] Care Team Providers Care Assembly Room Supervisor Name Role Phone Patti Beth MD Primary Care Provider [phone] Encounter Details Date Type Department Care Team ([facility] st Contact Info) Description 01/16/2023 Orders Only [facility] CH[facility] MED & PEDS [address] [place], [place] [phone] Elizabeth Rodriguez MD [address] [place] [address] Closed fracture of malleolus of right ankle, [...] Primary documented in this encounter Care Teams Assembly Room Supervisor Relationship Specialty Start Date End Date Patti Beth MD [address] [place] [id number] PCP - General Family Medicine 08/26/20 documented as of this encounter
[2025-04-28 08:02] LABS: Hematocrit 42.6 % (42.0-52.0); Hemoglobin 14.5 g/dl (14.0-18.0); Mean Corpuscular HGB Conc 34.0 g/dl (31.0-36.0); Mean Corpuscular Hemoglobin 30.0 pg (27.0-33.0); Mean Corpuscular Volume 88.2 fL (80.0-98.0); NRBC Abs Auto 0.000 X10*3/uL (0.0-0.012); NRBC Pct Auto 0.0 /100WBC (0.0-0.2); Platelet Count 297 X10*3/uL (160-400); Red Blood Count 4.83 X10*6/uL (4.60-5.80); White Blood Count 6.9 X10*3/uL (4.8-10.8)
[2025-04-28 09:14] LABS: Prostate Specific Antigen 0.54 ng/mL (<0.05-4.0)
[2025-05-03 14:27] LABS: Testosterone, Free 78.3 pg/mL (35.0-155.0)
== END 2025-04-28 07:09 | disposition home or self-care (01) ==
LOC: HO.LAB 07:08
PROVIDERS: PCP Family Medicine; Visit Provider Nurse Practitioner Family
DX: C61 Malignant neoplasm of prostate (principal); E29.1 Testicular hypofunction
CPT/HCPCS: 36415; 84153; 84402; 84403; 85027

== ENCOUNTER 2025-05-19 07:31 | Outpatient (AMB) | payer OTHER, SELFPAY ==
--- OUTSIDE RECORDS SUMMARY | 2020-07-29 15:14 | XMS_ITS | Encounter Summary ---
Author Organization [facility] Address [address] [place] [address] Phone Care Team Providers Care Supervisor Glycerin Name Role Phone Pura Campos CNP Primary Care Provider [phone] Encounter Details Date Type Department Care Team (Late st Contact Info) Description 07/29/2020 2:14 PM [facility] Hospital Encounter [facility] [address] [place] [address] Alexei Boyer PA [address] [place] [phone] [email or web address] Social History Tobacco Use Types Packs/Day [...] on filedocumented in this encounter Care Teams Supervisor Glycerin Relationship Specialty Start Date End Date Pura Campos, SOC ANALYST 15 [facility], [address] [address] [email or web address] PCP - General Family Medicine 07/29/20 documented as of this encounter Additional Source Comments The information contained in this document represents components of the legal health record. It is not the complete legal health record.[facility]
--- OUTSIDE RECORDS SUMMARY | 2020-07-29 15:14 | XMS_ITS | Encounter Summary ---
Author Organization [facility] Address [address] [place] [address] Phone Care Team Providers Care Soap Grinder Name Role Phone Pura Campos CNP Primary Care Provider [phone] Encounter Details Date Type Department Care Team (Late st Contact Info) Description 07/29/2020 2:14 PM [facility] Hospital Encounter [facility] [address] [place] [address] Alexei Boyer PA [address] [place] [address] [email or web address] Social History Tobacco Use Types Packs/Day [...] on filedocumented in this encounter Care Teams Soap Grinder Relationship Specialty Start Date End Date Pura Campos, GENERAL STUDIES PROGRAM CHAIR 15 [facility], [address] [place] [address] [email or web address] PCP - General Family Medicine 07/29/20 documented as of this encounter Additional Source Comments The information contained in this document represents components of the legal health record. It is not the complete legal health record.[facility]
--- OUTSIDE RECORDS SUMMARY | 2022-07-05 08:30 | XMS_ITS | Encounter Summary ---
Author Organization [facility] Address [address] [place] [id number] Phone Care Team Providers Care Core Extruder Name Role Phone Pura Campos CNP Primary Care Provider [phone] Encounter Details Date Type Department Care Team (Late st Contact Info) Description 07/05/2022 8:30 AM EDT Hospital Encounter [facility] [address] [place] [id number] Nadege Winchester FNP [address] [place] [id number] MARIA [email or web address] Social History Tobacco Use Types Packs/Day [...] XR LUMBOSACRAL SPINE 2-3 VIEWS FINDINGS: 5 [id number] lumbar-type vertebral bodies. Preserved alignment. Vertebral bodies and disc space heights are preserved. Large anterior osteophytes at multiple levels. Facets are aligned. Procedure Note Micaela Eli MD - 07/05/2022 XR LUMBOSACRAL SPINE 4 OR MORE VIEWS COMPARISON: XR LUMBOSACRAL SPINE 2-3 VIEWS FINDINGS: 5 [id number] lumbar-type vertebral bodies. Preserved alignment.Vertebral bodies and disc space heights are preserved. Large anteriorosteophytes at multiple levels. Facets are aligned. IMPRESSION: No displaced fracture. Nadege Winchester ENVIRONMENTAL TECHNICAL OFFICER IMG XR SPINE Final Resul t documented in this encounter Visit Diagnoses Not on filedocumented in this encounter Care Teams Core Extruder Relationship Specialty Start Date End Date Pura Campos CNP [address] [place] [address] [email or web address] PCP - General Family Medicine 07/29/20 documented as of this encounter Additional Source Comments The information contained in this document represents components of the legal health record. It is not the complete legal health record.[facility]
--- NOTE | 2025-05-19 07:32 | A.OFFVIS_ITS ---
Intake Visit Reasons: 3m/labs Intake Note: Patient presents today for follow up on: prostate cancer, hypogonadism, and lab results Total Testosterone: 466; Free testosterone: 78.3 PSA: 0.54 Urology Medication:Testosterone, Terazosin Antibiotic Allergy:PENICILLIN Blood Thinner:NONE Transitional Care Manager Required: No Accompanied by: Self / Same As Patient Allergies Penicillins (PENICILLINS) Allergy (Severe, Verified 05/19/25 07:59) RASH Medication List - Last Reconciled 05/19/25 by TERENCE Mckeon- alcohol swabs (BD Alcohol Swabs) 0 pad topical amlodipine 10 mg PO DAILY blood sugar diagnostic As directed celecoxib 100 mg PO BID cholecalciferol (vitamin D3) (Vitamin D3) 50 mcg PO DAILY clotrimazole 1% appl topical BID dulaglutide (Trulicity) mg subcut ketoconazole 2% appl topical lancets As directed lisinopril 20 mg PO DAILY lorazepam 0.5 mg PO BEDTIME PRN metformin 500 mg PO montelukast 10 mg PO DAILY pantoprazole 20 mg PO DAILY quetiapine 50 mg PO BEDTIME rosuvastatin 10 mg PO DAILY safety needles As directed-draw up needle terazosin 5 mg PO BEDTIME 90 days testosterone 3 pumps topical DAILY 30 days HPI Comments Details: Shane is a pleasant 65 year old male patient of Dr. Beth. He has a past medical history of hyperlipidemia, hypertension, type 2 diabetes, atherosclerotic cardiovascular disease, hypogonadism, and prostate cancer. He is being followed up on today via video telehealth for his hypogonadism, prostate c ancer, and lower urinary tract symptoms. In discussion with the patient today he reports to be doing and feeling well. He denies any bothersome urinary issues or concerns. He reports be happy with current voiding parameters on 5 mg of terazosin. He reports compliance with testosterone as prescribed. During last office visit testosterone was noted to be borderline low in recommendations were made for increase in testosterone therapy to 3 pumps per day. He does feel at times he continues with feeling fatigued. Recent labs were reviewed with the patient today as noted and trended below. He otherwise offers no other issues or concerns at this time. Prostate cancer Initial diagnosis 2014 Initial therapy external beam radiation Remained at low testosterone following therapy PSA/Testosterone levels: 02/28 0.7, 03/31 0.5, 08/31 0.8, 03/02 T 136 P 0.7, 09/01 T 1540 P 1.2, 03/03 T 1903 P 0.8, 04/02 T 65, 06/03 T 224 P 0.4, 10/04 T 264, 01/02 0.4, 01/02 T 429, 08/04 PSA 0.4 T 420, 02/02 PSA 0.6 T 314, 05/05 PSA 0.5, T 466 CBC: -H/H 10/04 14.6 & 43.4, 01/02 15.1 & 44.4, 08/04 14.7/43.8, 02/02 15.0/45.2, 05/05 14.5/42.6 Continues with low PSA. This suitable candidate for testosterone replacement Hypogonadism Diagnosed following radiation therapy Initial therapy testosterone injections [facility] Medical History (Updated 02/17/25 @ 09:07 by Holly Delaney [facility]) Hypogonadism in male Other and unspecified hyperlipidemia Type 2 diabetes mellitus with unspecified complications Perianal cyst HTN (hypertension) Arthritis Hypogonadism in male Carpal tunnel syndrome Dysphasia Colon cancer screening Rectal pain Prostate cancer Bladder outlet obstruction Erectile dysfunction Surgical History History of surgery History of tympanoplasty Hx of carpal tunnel repair Family History Father Prostate cancer Mother Uterine cancer Paternal Grandfather Lung cancer Paternal Grandmother Breast cancer Maternal Grandfather Brain cancer Maternal Grandmother Throat cancer HTN (hypertension) Social History Alcohol intake: never Patient Tobacco Use Status: Never used Tobacco Current occupational status: employed Current occupation: security /left hand Review of Systems Const Reports as per HPI Eyes Reports no additional complaints ENT Reports no additional complaints Card Reports as per HPI Resp Reports no additional complaints GI Reports no additional complaints Reports as per HPI Musc Reports no additional complaints Neuro Reports no additional complaints Psych Reports no additional complaints Endo Reports as per HPI Mike/Lymph Reports no additional complaints Aller/Immun Reports no additional complaints Physical Exam Const General: cooperative, healthy appearing, comfortable, no acute distress, well developed, alert and awake Orientation/consciousness: patient oriented x3 Resp Effort & Inspection: normal respiratory effort and able to speak in complete sentences Neuro General: patient oriented x3 Psych Appearance: grossly normal and well kempt Speech and movement: Clear speech present Affect: normal affect Attitude: cooperative Thought process: Normal thought process present Thought content: Normal thought content present Insight: Fair insight present (Psych) Judgement: Fair judgement present (Psych) Telehealth Telehealth Telehealth Platform: [employer] Location of provider rendering services: practice address Location of patient: address on file Patient Identification confirmed using: Name, : Yes Telehealth method: video Patient verbally consented to treatment: Yes Patient verbally consented to billing insurance company: Yes Patient informed of any privacy concerns related to visit: Yes Minutes spent on Phone/Video with Pt.: 15 Assessment & Plan Assessment & Plan (1) Hypogonadism in male: Code(s): E29.1 - Testicular hypofunction Category: Medical (2) Prostate cancer: Code(s): C61 - Malignant neoplasm of prostate Category: Medical Plan Patient reports be happy with current voiding parameters on 5 mg of terazosin; will continue. Patient currently denies any bothersome urinary issues or concerns. Will continue with surveillance monitoring of PSA, CBC, testosterone free and total for history of hypogonadism as well as prostate cancer. Continue testosterone therapy as discussed and prescribed; refill provided. We also discussed potential causes of labile fatigue he continues to experience. We discussed importance of lifestyle modifications to assist with urological conditions as well as overall health and well-being. All questions were answered. Will obtain PSA, CBC, testosterone free and total in 3 months. Follow-up in 3 months with labs to be completed prior; or sooner with any issues, concerns, and or questions. Orders: Orders Testosterone, Free/Total 3 Months C61 - Malignant neoplasm of prostate, E29.1 - Testicular hypofunction Prostate Specific Antigen 3 Months C61 - Malignant neoplasm of prostate, E29.1 - Testicular hypofunction Complete Blood Count no Diff 3 Months E29.1 - Testicular hypofunction Medications: Refilled testosterone apply 3 pumps over max area - alternate shoulders on alternate days 3 pumps topical DAILY 75 grams 5RF 30 days E29.1 - Testicular hypofunction, R79.89 - Other specified abnormal findings of blood chemistry Patient Instructions: The patient had an opportunity to ask questions regarding the treatment plan. All questions were answered. Physical exam, labs, and imaging were discussed and reviewed in detail. As well as risks, benefits, and discussion of treatment choices. No major barriers to understanding were identified. The patient expressed understanding and agreement with the above treatment plan. The patient was made aware they should contact our office by phone for worsening of their current condition, the appearance of new symptoms, or with any questions or concerns. Compliance is encouraged with any medications and follow up testing that is ordered. It is a privilege to be allowed the opportunity to participate in? your urological care.? Again, if you have any questions or concerns If you have any questions or concerns please do not hesitate to contact me. The office is [phone]. This note is constructed using voice recognition software. While every effort has been made to ensure accuracy human services professional errors may have been included. Yours sincerely, PACO Mckeon Coding Level of Care Code Tele Est Pt Level 3 (78241) Diagnoses Hypogonadism in male E29.1 Prostate cancer C61
--- OUTSIDE RECORDS SUMMARY | 2025-05-19 07:34 | XMS_ITS | Encounter Summary ---
Author Organization [employer] Address [address] [facility] 7t [place] [address] Care Team Providers Care Family Mediator Name Role Phone Patti Beth MD Primary Care Provider [phone] Encounter Details Date Type Department Care Team ([facility] st Contact Info) Description 05/06/2024 Orders Only [facility] CHC MED & PEDS [address] [place] [address] Provider, MD Vladimir Social History Tobacco Use [...] documented as of this encounter Care Teams Family Mediator Relationship Specialty Start Date End Date Patti Beth MD [address] [place] [address] PCP - General Family Medicine 08/26/20 documented as of this encounter
--- OUTSIDE RECORDS SUMMARY | 2025-05-19 07:34 | XMS_ITS | Encounter Summary ---
Author Organization [employer] Address [address] [place] [address] 7 [place] [address] Care Team Providers Care Screen Tacker Name Role Phone Patti Beth MD Primary Care Provider [phone] Reason for Visit * Reason Comments Med Refill Encounter Details Date Type Department Care Team ([facility] Contact Info) Description 05/13/2025 Refill [facility] CHC MED & PEDS [address] [place], [place] [phone] Patti Beth MD [address] [place] [address] Mixed hyperlipidemia Social History Tobacco Use Types Packs/Day Years [...] of this encounter Visit Diagnoses Diagnosis Mixed hyperlipidemia documented in this encounter Additional Health Concerns Assessment Noted Time PHQ-9 Depression Total Score: 0 11/06/19 25 9:44 AM EST documented as of this encounter Care Teams Screen Tacker Relationship Specialty Start Date End Date Patti Beth MD [address] [place] [address] PCP - General Family Medicine 08/26/20 documented as of this encounter
--- OUTSIDE RECORDS SUMMARY | 2025-05-19 07:34 | XMS_ITS | Encounter Summary ---
Author Organization [employer] Address [address] [place] [address] 7t [place] [address] Care Team Providers Care Housing Management Representative Name Role Phone Patti Beth MD Primary Care Provider [phone] Reason for Visit * Reason Comments Med Refill Encounter Details Date Type Department Care Team ([facility] Contact Info) Description 05/12/2025 Refill [facility] CHC MED & PEDS [address] [place] [address] Patti Beth MD [address] [place] [address] Type 2 diabetes mellitus without complication, without long-term current use of insulin ([facility]) Social History Tobacco Use Types Packs/Day Years [...] as of this encounter Visit Diagnoses Diagnosis Type 2 diabetes mellitus without complication, without long-term current use of insulin ([facility]) documented in this encounter Additional Health Concerns Assessment Noted Time PHQ-9 Depression Total Score: 0 11/06/19 25 9:44 AM EST documented as of this encounter Care Teams Housing Management Representative Relationship Specialty Start Date End Date Patti Beth MD [address] [place] [address] PCP - General Family Medicine 08/26/20 documented as of this encounter
--- OUTSIDE RECORDS SUMMARY | 2025-05-19 07:34 | XMS_ITS | Encounter Summary ---
Author Organization [employer] Address [address] [place] [address] 7 [place] [address] Care Team Providers Care Direct Chill Caster Name Role Phone Patti Beth MD Primary Care Provider [phone] Encounter Details Date Type Department Care Team ([facility] st Contact Info) Description 01/16/2023 Orders Only [facility] CHC MED & PEDS [address] [place], [place] [phone] Elizabeth Rodriguez MD [address] [place] [address] Closed fracture of malleolus of right ankle, [...] Primary documented in this encounter Care Teams Direct Chill Caster Relationship Specialty Start Date End Date Patti eBth MD [address] [place] [address] PCP - General Family Medicine 08/26/20 documented as of this encounter
--- OUTSIDE RECORDS SUMMARY | 2025-05-19 07:34 | XMS_ITS | Encounter Summary ---
Author Organization [employer] Address [address] [place] [address] 7 [place] [address] Care Team Providers Care Corporate Development Analyst Name Role Phone Patti Beth MD Primary Care Provider [phone] Reason for Visit * Reason Comments Med Refill Encounter Details Date Type Department Care Team ([facility] Contact Info) Description 11/17/2022 Refill [facility] CHC MED & PEDS [address] [place], [place] [phone] Patti Beth MD [address] [place] [address] Mixed hyperlipidemia (Primary Dx) Social History Tobacco [...] Primary documented in this encounter Care Teams Corporate Development Analyst Relationship Specialty Start Date End Date Patti Beth MD [address] [place] [address] PCP - General Family Medicine 08/26/20 documented as of this encounter
--- OUTSIDE RECORDS SUMMARY | 2025-05-19 07:34 | XMS_ITS | Clinical Summary ---
Author Organization [facility] Address [address] [facility] [address] [place] [phone] Phone Care Team Providers Care Reactor Fueling Supervisor Name Role Phone Pura Campos CNP Primary Care Provider Allergies Active Allergy Reactions Criticality Noted Date Comments Penicillins Other (See Comments) 03/23/2012 Medications FREESTYLE LITE Strp strips USE 1 STRIP TO TEST BLOOD SUGAR 6 TIMES QD 0 Active TRULICITY 0.75 mg/0.5 mL subcutaneous injection 0 Active FREESTYLE 28 gauge lancets USE 1 LANCET TO TEST 6 TIMES QD 0 Active lisinopril (PRINIVIL,ZESTRIL ) 10 MG tablet Take by mouth daily. 0 Active metFORMIN (GLUCOPHAGE) 500 MG tablet TK 1 T PO BID WITH THE MORNING AND LIA MEAL 0 Active tamsulosin (FLOMAX) 0.4 mg Cap Take 0.4 mg by mouth daily. 0 Active QUEtiapine (SEROQUEL) 50 MG tablet Take 50 mg by mouth nightly at bedtime. 0 Active testosterone cypionate (DEPO-TESTOTERONE ) 200 mg/mL injection INJECT 1 ML IM ONCE A WEEK 0 Active LORazepam (ATIVAN) 0.5 MG tablet Take 0.5 mg by mouth every 6 (six) hours as needed for anxiety. Active pantoprazole (PROTONIX) 20 MG tablet Take 20 mg by mouth daily. Active amLODIPine (NORVASC) 10 MG tablet Take 10 mg by mouth daily. 2 Active VITAMIN D3 50 mcg (2,000 unit) tablet Take 2,000 Units by mouth daily. 2 Active rosuvastatin (CRESTOR) 10 MG tablet Take 10 mg by mouth daily. 2 Active cyclobenzaprine (FLEXERIL) 10 MG tablet Take 1 tablet (10 mg total) by mouth 3 (three) times a day as needed (muscle). 15 tablet 2 Active Active Problems No known active problems Immunizations Immunization Administration Dates Next Due Hepatitis B Adult 07/17/2017 Influenza Quadrivalent w/ Preservative IM 2016 Influenza Split (Incl. Purified Surface Antigen) 06/18/2012 Pneumococcal polysaccharide PPSV23 06/18/2012 Tdap 02/02/2022,06/18/2012 Social History Tobacco Use Types [...] PM EDT Sexual Orientation Not on file Last Filed Vital Signs Vital Sign Reading Time Taken Comments Blood Pressure 111/78 07/05/2022 8:05 AM EDT Pulse 81 07/05/2022 8:05 AM EDT Temperature 36.5 C (97.7 F) 07/05/2022 8:05 AM EDT Respiratory Rate 18 07/05/2022 8:05 AM EDT Oxygen Saturation 98% 07/05/2022 8:05 AM EDT Inhaled Oxygen Concentration - - Weight 87.5 kg (193 lb) 07/05/2022 8:05 AM EDT Height 170.2 cm (5' 7 ) 07/05/2022 8:05 AM EDT Body Mass Index 30.23 07/05/2022 8:05 AM EDT Plan of Treatment Health Maintenance Due Date Last Done Comments LIPID PANEL 1961 DEPRESSION SCREENING 1973 HEPATITIS C SCREENING 1979 HIV ONE-TIME SCREENING (18-6 5 YEARS) 1979 COLOGUARD 2006 COLONOSCOPY 2006 COLORECTAL CANCER SCREENING 2006 FIT TEST 2006 FOBT 2006 SIGMOIDOSCOPY 2006 VIRTUAL COLONOSCOPY 2006 ZOSTER VACCINES (1 of 2) 2011 PNEUMOCOCCAL VACCINES (50+ years) (2 of 2 - PCV) 06/18/2013 06/18/2012 CREATININE LEVEL 02/12/2020 02/11/2019, 05/08/2012 POTASSIUM LEVEL 02/12/2020 02/11/2019, 05/08/2012 SCREENING FOR DIABETES 07/29/2023 07/29/2020 INFLUENZA VACCINE (#1) 2025 7, 06/18/2012 COVID-19 VACCINE (3 - 2024-2 6 season) 2025 06/05/2021, 05/15/2021 Adult Td,Tdap Booster 02/03/2032 02/02/2022 , 06/18/2012 RSV VACCINE (1 - 1-dose 75+ series) 2036 SMOKING STATUS SCREENING (On ce After 26 Yrs) Completed 07/05/2022 HEPATITIS A VACCINES Aged Out No long er eligible based on patient's age to complete this topic HIB VACCINES Aged Out No longer eligi ble based on patient's age to complete this topic MENINGOCOCCAL VACCINES (ACWY) Aged Out No longer eligible based on patient's age to complete this topic MENINGOCOCCAL VACCINES (B) Aged Out N o longer eligible based on patient's age to complete this topic Medical Devices Not on file Procedures Procedure Name Priority Date/Time Associated Diagnosis Comments BASIC METABOLIC PANEL STAT 02/11/2019 7:27 PM EDT from Last 3 Months or Most Recently Relevant to Health Maintenance Results * (ABNORMAL) Basic metabolic panel (02/11/2019 7:27 PM EDT) SODIUM 140 133 - 146 mmol/L [facility] CHLORIDE 99 96 - 108 mmol/L [facility] POTASSIUM 4.2 3.3 - 5.1 mmol/L [facility] CO2 30 21 - 35 mmol/L [facility] BUN 13 6 - 19 mg/dL [facility] CREATININE 0.70 0.5 - 1.5 mg/dL [facility] GLUCOSE 138(H) 70 - 99 mg/dL [facility] CALCIUM 9.9 8.4 - 10.3 mg/dL [facility] EGFR 105 >59 mL/min/1.7 3m2 [facility] Comment:If patient is black, multiply result by 1.159. Estimated glomerular filtration rate calculated using the CKD-EPI equation. ANION GAP 15 10 - 20 mmol/L [facility] Blood 02/11/2019 7:27 PM EDT 02/11/2019 7:39 PM EDT us Irene De Dios NP LAB BLOOD ORDERABLES Final Res ult [address] [address] from Last 3 Months or Most Recently Relevant to Health Maintenance Insurance CARE MEDICARE REPLACEMENT [place] [id number] , [place] [id number] [facility] CARE MEDICARE REPLACEMENT [employer] [facility] CARE MEDICARE REPLACEMENT [employer]ANCE Care Teams Reactor Fueling Supervisor Relationship Specialty Start Date End Date Pura Campos CNP [address] [facility] [address] [place] [address] [email or web address] PCP - General Family Medicine 07/29/20 Additional Source Comments The information contained in this document represents components of the legal health record. It is not the complete legal health record.[facility]
--- OUTSIDE RECORDS SUMMARY | 2025-05-19 07:34 | XMS_ITS | Clinical Summary ---
Author Organization [address] [facility] Address [address] [place] [address] Phone Care Team Providers Care Early Interventionist Name Role Phone Patti Beth MD Primary Care Provider [phone] Social History Tobacco Use Types Packs/Day Years Used Date Smoking Tobacco: Never Assessed Sex and Gender Information Value Date Recorded Sex Assigned at Not on file Legal Sex Male 6:17 PM EST Gender Identity Not on file Sexual Orientation Not on file Plan of Treatment Upcoming Encounters Date Type Department Care Team ([facility] Contact Info) Description 06/03/2025 8:45 AM EDT Consult Orthopedic Surgery - [place] [id number] [phone] Adal Henley, DPM [address] [phone] Health Maintenance Due Date Last Done Comments DTaP,Tdap,and Td Vaccines (1 - Tdap) 1980 Pneumococcal Vaccine: 50+ Ye ars (1 of 1 - PCV) 2011 Zoster Vaccines (1 of 2) 2011 Depression Screening 09/11/2024 Cholesterol Screening (Lipid Panel) 03/29/2025 Colorectal Cancer Screening: Colonoscopy 03/29/2025 HIV Screening 03/29/2025 Hepatitis C Screening 03/29/2025 Social Influencers of Health Screening 03/29/2025 COVID-19 Vaccine ( - 2023-2 5 season) 2025 Influenza Vaccine (#1) 2025 RSV Immunization Adult [...] patient's age to complete this topic Insurance [facility] Member Subscriber Plan / Payer (Ef fective 2014-Present) Name:SHANE BARTLETT Relation to Subscriber:Self Name:Shane Bartlett Payer ID:[id number] Group ID:[id number] Type:Not on file Address: [place] [address] [address] [phone] Care Teams Early Interventionist Relationship Specialty Start Date End Date Patti Beth MD [address] [place] [phone] PCP - General Family Medicine 03/11/25
--- OUTSIDE RECORDS SUMMARY | 2025-05-19 07:34 | XMS_ITS | Clinical Summary ---
Author Organization [employer] Address [address] [place] [address] 7 [place] [address] Care Team Providers Care Paper Coating Machine Operator Name Role Phone Patti Beth MD Primary Care Provider [phone] Allergies Active Allergy Reactions Criticality Noted Date [...] needed at bedtime. 023 Active BD Disp Bullock 18G X 1-09/12 misc USE DIRECTED TO [...] at bedtime. 90 tablet 1 024 Active metFORMIN (Glucophage) 500 MG tabletIndications :Type 2 diabetes mellitus with hyperglycemia, unspecified whether watermaster insulin use ([facility]) TAKE 1 TABLET(500 MG) BY MOUTH IN THE MORNING 90 tablet 1 024 Active cholecalciferol VITAMIN D (Vitamin D-3) 50 MCG (1999) tablet TAKE 1 TABLET BY MOUTH EVERY MORNING 120 tablet 4 Active ketoconazole (NIZOral) 2 % cream APPLY TOPICALLY TO THE AFFECTED AREA TWICE DAILY 60 g 2 024 Active montelukast (Singulair) 10 MG tablet TAKE 1 TABLET(10 MG) BY MOUTH AT BEDTIME 90 tablet 1 024 Active lisinopril 20 MG tablet TAKE 1 TABLET(20 MG) BY MOUTH IN THE MORNING 90 tablet 1 Active terazosin (Hytrin) 5 MG capsule Take 5 mg by mouth at bedtime. Active Dulaglutide (Trulicity) 0.75 MG/0.5ML solution auto-injector Inject 0.75 mg under the skin 1 (one) time per week. 2 mL 5 025 Active amLODIPine (Norvasc) 10 MG tabletIndications :Hypertension, unspecified type TAKE 1 TABLET(10 MG) BY MOUTH IN THE MORNING 90 tablet 1 025 Active pantoprazole (ProtoNix) 20 MG EC tabletIndications :Gastroesophageal reflux disease, unspecified whether esophagitis present TAKE 1 TABLET BY MOUTH EVERY DAY 90 tablet 1 Active celecoxib (CeleBREX) 200 MG capsule Take 1 capsule (200 mg) by mouth 2 times daily. 60 capsule 2 Active cholecalciferol (Vitamin D-3) 50 MCG (1999) tablet TAKE 1 TABLET BY MOUTH EVERY MORNING 120 tablet 4 Active FREESTYLE LITE test stripIndications: Type 2 diabetes mellitus without complication, without long-term current use of insulin ([facility]) DIRECTED TO TEST BLOOD SUGAR TWICE DAILY 100 strip 5 Active diphenhydrAMINE (BENADryl) 25 MG tablet Take 1 tablet (25 mg) by mouth if needed at bedtime for itching. 30 tablet 025 2024 Active rosuvastatin (Crestor) 10 MG tabletIndications :Mixed hyperlipidemia TAKE 1 TABLET BY MOUTH EVERY DAY 90 tablet 1 025 Active FREESTYLE LITE test stripIndications: Type 2 diabetes mellitus without complication, without long-term current use of insulin ([facility]) DIRECTED TO TEST BLOOD SUGAR TWICE DAILY 100 strip 5 024 2024 Discontinued cholecalciferol (Vitamin D-3) 50 MCG (1999 UT) tablet TAKE 1 TABLET BY MOUTH EVERY MORNING 120 tablet 4 024 2024 Discontinued rosuvastatin (Crestor) 10 MG tabletIndications :Mixed hyperlipidemia TAKE 1 TABLET BY MOUTH EVERY DAY 90 tablet 4 024 2024 Discontinued predniSONE (Deltasone) 20 MG tablet Take 1 tablet (20 mg) by mouth Once per day for 5 days. 5 tablet 025 2024 Active Problems Problem Noted Date Diagnosed Date Pain in metatarsus of both feet 03/10/2025 Assessment & Plan (03/10/2025 7:43 AM EDT): Patient reports bilateral foot pain that started around the same time as the back pain exacerbation. Pain is localized to the metatarsal region, particularly in the small and second toes, and the middle of the foot. Pain is worse with walking and improves with rest. Clinical examination suggests metatarsalgia. Plan: - Order foot X-ray - Refer to financial recording clerk - Follow up in 3 months for foot pain reassessment Generalized abdominal pain 12/11/2023 Assessment & Plan [...] diabetes mellitus wit h hyperglycemia, unspecified whether watermaster insulin use 09/19/2023 Assessment & Plan (09/19/2023 [...] 2 diabetes mellitus 11/12/2018 Assessment & Plan (03/10/2025 7:44 AM EDT): Controlled. Lab Results Component Value Date HGBA1C 6.2 (A) 03/07/2025 Cont current med regimen. Pt declined vaccinations Assessment & Plan (12/11/2023 9:02 PM EDT): [...] prostate 03/13/2012 Backache 01/26/2012 Assessment & Plan (03/10/2025 7:42 AM EDT): Patient reports chronic back pain with recent exacerbation over the past 2 weeks. Physical examination reveals significant muscle spasm in the lower back. Clinical findings suggest lumbar sacroiliitis, with the right sacroiliac joint moving forward more than it should. This misalignment is causing contralateral shoulder irregularity and hip problems. The Marifer test was positive, indicating sacroiliac joint involvement rather than hip pathology. Previous pain medication has been ineffective. Plan: - Order lumbar X-ray - Prescribe Celebrex 200 mg PO BID - Refer to physical therapy - Follow up in 3 months for back pain reassessment Assessment & Plan (06/08/2023 10:06 AM EDT): -Patient still complaints of back pain will be prescribed pain medication. -Recommended patient to do physical therapy: patient denied. Gastroesophageal reflux disease 01/26/2012 Encounters Date Type Department Care Team Description 05/13/2025 10:00 AM EDT Office Visit [facility] [address] [place] [address] Chacha Elaine MD Poison simon dermatitis (Primary Dx) 05/13/2025 Refill [facility] [address] [place] [address] Patti Beth MD Mixed hyperlipidemia 05/13/2025 Travel 05/12/2025 Refill [facility] [address] [place] [address] Patti Beth MD Type 2 diabetes mellitus without complication, without long-term current use of insulin (CMS/HCC) 05/06/2025 Telephone [facility] [address] [place] [address] Patti Beth MD Med Refill 04/28/2025 Orders Only GENERIC EXTERNAL DATA DEPARTMENT Provider, Generic External Data 04/22/2025 Telephone [facility] [address] [place] [address] Patti Beth MD 03/11/2025 Results Follow-Up [facility] [address] [place] [address] Patti Beth MD XR Foot 3+ Views Bilateral 03/07/2025 3:15 PM EDT Office Visit [facility] [address] [place] [address] Patti Beth MD Chronic right-sided low back pain without sciatica (Primary Dx); Type 2 diabetes mellitus without complication, without long-term current use of insulin (CMS/HCC); Pain in metatarsus of both feet 03/07/2025 Travel 02/28/2025 Patient Outreach [facility] [address] [place] [address] [phone] Patti Beth MD Pre-visit Planning ([facility] screening completed on 11/06/24) from Last 3 Months Immunizations Immunization Administration [...] Sign Reading Time Taken Comments Blood Pressure 114/81 05/13/2025 9:59 AM EDT Pulse 75 05/13/2025 9:59 AM EDT Temperature 36.4 C (97.6 F) 05/13/2025 9:59 AM EDT Respiratory Rate 18 05/13/2025 9:59 AM EDT Oxygen Saturation 97% 05/13/2025 9:59 AM EDT Inhaled Oxygen Concentration - - Weight 89.4 kg (197 lb) 05/13/2025 9:59 AM EDT Height 170.8 cm (5' 7.25 ) 05/13/2025 9:59 AM ED T Body Mass Index 30.63 05/13/2025 9:59 AM EDT Plan of Treatment Health Maintenance Due Date Last Done Comments CT Colonography 1960 Colonoscopy 1960 FIT 1960 Sigmoidoscopy 1960 Disability Screening 1960 Eye Exam 1971 Zoster Vaccines (1 of 2) 2011 Pneumococcal Vaccine: 50+ Years (2 of 2 - PCV) 06/18/2013 06/18/2012 Hepatitis B Vaccines (2 of 3 - 19+ 3-dose series) 08/14/2017 07/17/2017 Diabetes: Foot Exam 04/27/2024 04/27/2023, 04/27/2023, 04/27/2023, Additional history exists FOBT 06/16/2024 06/16/2023 COVID-19 Vaccine (3 - 2024- season) 2025 06/05/2021, 05/15/2021 Influenza Vaccine (#1) 2025 07/17/2017, 2011 Diabetes: Hemoglobin A1C 09/06/2025 025, 11/06/2024, 04/23/2024, Additional history exists Alcohol/Substance Use Screening 11/06/2025 11/06/2024 Depression Screening 11/06/2025 11/06/2024, 11/06/19 SDOH Screening 11/06/2025 11/06/2024 Lipid Panel 11/08/2025 11/08/2024, 08/09/2022, 08/25/2020 Diabetes: Urine Protein Screening 11/09/2025 11/09/2024, 05/01/2023, 12/03/2021, Additional history exists Tobacco Screening 05/13/2026 05/13/2025 Colorectal Cancer Screening 06/16/2026 FIT DNA/Cologuard 06/16/2026 [...] Procedure Name Priority Date/Time Associated Diagnosis Comments TESTOSTERONE, FREE (DIALYSIS) AND TOTAL,MS Routine 04/28/2025 7:30 AM EDT PSA, TOTAL Routine 04/28/2025 7:30 AM EDT CBC Routine 04/28/2025 7:30 AM EDT XR LUMBAR SPINE COMPLETE 4+ VIEWS Routine 03/10/2025 2:09 PM EDT Chronic right-sided low back pain without sciatica XR HIP 2 OR 3 VIEWS RIGHT Routine 03/10/2025 2:03 PM EDT Chronic right-sided low back pain without sciatica XR FOOT 3+ VIEWS BILATERAL Routine 03/10/2025 1:57 PM EDT POCT GLYCATED HEMOGLOBIN, TOTAL Routine 03/07/2025 3:16 PM EDT Type 2 diabetes mellitus without complication, without long-term current use of insulin (CMS/HCC) POCT GLUCOSE Routine 03/07/2025 3:15 PM EDT Type 2 diabetes mellitus without complication, without long-term current use of insulin (CMS/HCC) ALBUMIN, RANDOM URINE W/CREATININE Routine 11/09/2024 8:30 AM EST Type 2 diabetes mellitus without complication, without long-term current use of insulin (CMS/HCC) LIPID PANEL, STANDARD Routine 11/08/2024 7:31 AM EST Type 2 diabetes mellitus without complication, without long-term current use of insulin (CMS/HCC) LAB COLOGUARD COLON CANCER SCREEN Routine 06/16/2023 9:59 AM EDT Colon cancer screening HEPATITIS C ANTIBODY Routine 05/01/2023 6:40 AM EDT Encounter for health-related screening HIV ANTIBODY/ANTIGEN ([place] DPH) Routine 05/01/2023 6:40 AM EDT HP LINK DIABETIC FOOT EXAM Routine 04/27/2023 from Last 3 Months or Most Recently Relevant to Health Maintenance Results * CBC (04/28/2025 7:30 AM EDT) White Blood Count 6.9 4.8 - 10.8 X10*3/uL [facility] Red Blood Count 4.83 4.60 - 5.80 X10*6/uL [facility] Hemoglobin 14.5 14.0 - 18.0 g/dl [facility] Hematocrit 42.6 42.0 - 52.0 % [facility] Mean Corpuscular Volume 88.2 80.0 - 98.0 fL [facility] Mean Corpuscular Hemoglobin 30.0 27.0 - 33.0 pg [facility] Mean Corpuscular HGB Conc 34.0 31.0 - 36.0 g/dl [facility] Red Cell Distribution Width 12.6 11.0 - 16.0 % [facility] Platelet Count 297 160 - 400 X10*3/uL [facility] Mean Platelet Volume 9.4 9.4 - 12.4 fL [facility] NRBC Pct Auto 0.0 0.0 - 0.2 /100WBC [facility] NRBC Abs Auto 0.000 0.0 - 0.012 X10*3/uL [facility] 04/28/2025 7:30 AM EDT 04/28/2025 7:30 AM EDT us Generic External Data Provider LAB BLOOD ORDERAB LES Final Result [facility] [address] [place] [address] [phone] * Testosterone, Free (Dialysis) And Total, MS (04/28/2025 7:30 AM EDT) Testosterone, Total 466 250 - 1100 ng/dL [facility] Comment:Men with clinically significant hypogonadalsymptoms and testosterone values repeatedly inthe range of the 200-300 ng/dL or less, maybenefit from testosterone treatment afteradequate risk and benefits counseling.For additional information, please refer [email or web address].[email or web address] System/faq/[email or web address](This link is being provided for informational/educational purposes only.)This test was developed and its analytical performancecharacteristics have been determined by [employer] [place], [place]. It hasnot been cleared or approved by the U.S. Food and DrugAdministration. This assay has been validated pursuantto the CLIA regulations and is used for clinicalpurposes. Testosterone, Free 78.3 35.0 - 155.0 pg/mL [facility] Comment:This test was develo ped and its analytical performancecharacteristics have been determined by [employer] [place], [place]. It hasnot been cleared or approved by the U.S. Food and DrugAdministration. This assay has been validated pursuantto the CLIA regulations and is used for clinicalpurposes.THIS TEST WAS PERFORMED AT:[employer] [place] [phone] WALKER MD,PHD 04/28/2025 7:30 AM EDT 04/28/2025 7:30 AM EDT Generic External Data Provider LAB BLOOD ORDERAB LES Final Result Performing Organization Address [facility] Co de Phone Number [facility] [address] [place] [phone] * PSA,Total (04/28/2025 7:30 AM EDT) Prostate Specific Antigen 0.54 <0.05 - 4.0 ng/mL [facility] Comment:PSA methodology: Sridhar Matson i ChemiluminescentMicroparticle Immunoassay (CMIA) 04/28/2025 7:30 AM EDT 04/28/2025 7:30 AM EDT Generic External Data Provider LAB BLOOD ORDERAB LES Final Result Performing Organization Address [facility] Co de Phone Number [facility] [address] [place] [phone] * XR Lumbar Spine Complete 4+ Views (03/10/2025 2:09 PM EDT) Anatomical Region Laterality Modality Spine, L-spine Radiographic Lynnette ging 03/10/2025 2:09 PM EDT Narrative 03/10/2025 2:11 PM EDT [address] [address] XRay Report Signed Patient: Shane Delgado MR#: [id number] 535 : 1960 Acct:[id number] Age/Sex: 64 / M ADM Date: 03/10/25 Loc: HO.XRAY Attending Dr: Patti Beth MD Ordering Physician: Patti Beth MD Date of Service: 03/10/25 Procedure(s): XR lumbar spine 4V min Accession Number(s): [id number] cc: Patti Beth MD CLINICAL HISTORY: CHRONIC LOW BACK PAIN 5 views lumbar spine Comparison: CT/NC/SR - CT ABDOMEN PELVIS W IV CON - 02/15/24 09:59 EDT Findings: Straightening of the normal lordosis is either due to muscle spasm or positioning. Satisfactory vertebral body alignment. No acute fractures or dislocation. No significant vertebral body compression deformity. Mild L5-S1 disc space narrowing. Moderate multilevel facet degenerative changes. Multilevel anterior endplate osteophytes most prominent at L3-4. Densely calcified vas deferens can be associated with diabetes mellitus. IMPRESSION: No acute fracture in the lumbar spine. This document has been electronically signed by: Lillian Bustos DO on 03/10/2025 14:09:50 Dictated By: Lillian Bustos MD Signed By: <Electronically signed by Lillian Bustos MD in OV> 03/10/25 1411 DD/ 1409 TD/TT: 03/10/25 1409 Shear Operator: Procedure Note Donotuseinterpreter, Image - 03/10/2025 [facility] [address] [place] [address] XRay Report Signed Patient: Shane Delgado EMR#: [id number] 535 : 1960cct:[id number] Age/Sex: 64 / MADM Date: 03/10/25 Loc: HO.XRAY Attending Dr: Patti Beth MD Ordering Physician: Patti Beth MD Date of Service: 03/10/25 Procedure(s): XR lumbar spine 4V min Accession Number(s): [id number] cc: Patti Beth MD CLINICAL HISTORY: CHRONIC LOW BACK PAIN 5 views lumbar spine Comparison: CT/NC/SR - CT ABDOMEN PELVIS W IV CON - 02/15/24 09:59 EDT Findings: Straightening of the normal lordosis is either due to muscle spasm or positioning. Satisfactory vertebral body alignment. No acute fractures or dislocation. No significant vertebral body compression deformity. Mild L5-S1 disc space narrowing. Moderate multilevel facet degenerative changes. Multilevel anterior endplate osteophytes most prominent at L3-4. Densely calcified vas deferens can be associated with diabetes mellitus. IMPRESSION: No acute fracture in the lumbar spine. This document has been electronically signed by: Lillian Bustos DO on 03/10/2025 14:09:50 Dictated By: Lillian Bustos MD Signed By: <Electronically signed by Lillian Bustos MD in OV> 03/10/25 1411 DD/ 1409 TD/TT: 03/10/25 1409 Shear Operator: us Patti Beth MD IMG XR PROCEDURES Final Resul t * XR Hip 2 or 3 Views Right (03/10/2025 2:03 PM EDT) Anatomical Region Laterality Modality Lower Extremities, Hip Right Radiograp hic Imaging 03/10/2025 2:03 PM EDT Narrative 03/10/2025 2:04 PM EDT [place] [address] XRay Report Signed Patient: Shane Delgado MR#: [id number] 535 : 1960 Acct:[id number] Age/Sex: 64 / M ADM Date: 03/10/25 Loc: HO.KARINA Attending Dr: Patti Beth MD Ordering Physician: Patti Beth MD Date of Service: 03/10/25 Procedure(s): XR hip RT min 2V Accession Number(s): [id number] cc: Patti Beth MD CLINICAL HISTORY: 64 yo M with R sided back pain radiating down to his hip, send to [facility] 2 view, pelvis and right hip Comparison: CT/NC/SR - CT ABDOMEN PELVIS W IV CON - 02/15/24 09:59 EDT Findings: No acute fracture or dislocation. There is egja-dn-iucmrxgj narrowing of the acetabulofemoral joint. There are productive bony changes in the lateral acetabulum. There are productive bony changes in the greater trochanter. A circumscribed irregular sclerotic density in the intertrochanteric region is overall stable d compared to above-mentioned CT, allowing for modality differences. Multiple clips or brachytherapy seeds in the region of the prostate gland. IMPRESSION: 1. No acute fracture or dislocation. 2. Fqmd-wf-isxuvxnu arthritic changes. 3. Stable nonspecific sclerotic lesion in the proximal femur. This document has been electronically signed by: Lillian Bustos DO on 03/10/2025 14:03:12 Dictated By: Lillian Bustos MD Signed By: <Electronically signed by Lillian Bustos MD in OV> 03/10/25 1404 DD/ 1403 TD/TT: 03/10/25 1403 Shear Operator: Procedure Note Donotuseinterpreter, Image - 03/10/2025 [place] [address] XRay Report Signed Patient: Shane Delgado EMR#: [id number] 535 : 1960cct:[id number] Age/Sex: 64 / MADM Date: 03/10/25 Loc: HO.XRAY Attending Dr: Patti Beth MD Ordering Physician: Patti Beth MD Date of Service: 03/10/25 Procedure(s): XR hip RT min 2V Accession Number(s): [id number] cc: Patti Beth MD CLINICAL HISTORY: 64 yo M with R sided back pain radiating down to hiship, send to [facility] 2 view, pelvis and right hip Comparison: CT/NC/SR - CT ABDOMEN PELVIS W IV CON - 02/15/24 09:59 EDT Findings: No acute fracture or dislocation. There is yqqn-xo-gedamxye narrowing of the acetabulofemoral joint. There are productive bony changes in the lateral acetabulum. There are productive bony changes in the greater trochanter. A circumscribed irregular sclerotic density in the intertrochanteric region is overall stable d compared to above-mentioned CT, allowing for modality differences. Multiple clips or brachytherapy seeds in the region of the prostate gland. IMPRESSION: 1. No acute fracture or dislocation. 2. Hsng-jj-agkphdci arthritic changes. 3. Stable nonspecific sclerotic lesion in the proximal femur. This document has been electronically signed by: Lillian Bustos DO on 03/10/2025 14:03:12 Dictated By: Lillian Bustos MD Signed By: <Electronically signed by Lillian Bustos MD in OV> 03/10/25 1404 DD/ 1403 TD/TT: 03/10/25 1403 Shear Operator: us Patti Beth MD IMG XR PROCEDURES Final Resul t * XR Foot 3+ Views Bilateral (03/10/2025 1:57 PM EDT) Anatomical Region Laterality Modality Lower Extremities, Foot Bilateral Radiogra phic Imaging 03/10/2025 1:57 PM EDT Narrative 03/10/2025 1:59 PM EDT [place] [address] XRay Report Signed Patient: Shane Delgdao MR#: [id number] 535 : 1960 Acct:[id number] Age/Sex: 64 / M ADM Date: 03/10/25 Loc: HO.XRAY Attending Dr: Patti Beth MD Ordering Physician: Patti Beth MD Date of Service: 03/10/25 Procedure(s): XR Foot Mark 3V Accession Number(s): [id number] cc: Patti Beth MD CLINICAL HISTORY: 64 yo M with pain tenderness on metatarsal, send to [facility] 3 view right foot 3 view left foot Comparison: None provided Findings: No fractures or dislocations. Mild degenerative changes bilaterally. No ankle effusion. No radiopaque foreign body. 1.8 cm right and 1.0 cm left Achilles tendon enthesophytes. 1.0 cm right and 1.1 cm left plantar tendon enthesophytes. IMPRESSION: 1. No acute fracture or dislocation. 2. Large bilateral calcaneal spurs. This document has been electronically signed by: Lillian Bustos DO on 03/10/2025 13:57:48 Dictated By: Lillian Bustos MD Signed By: <Electronically signed by Lillian Bustos MD in OV> 03/10/25 135 DD/ 56 TD/TT: 03/10/251356 Shear Operator: Procedure Note Donotuseinterpreter, Image - 03/10/2025 [place] [address] XRay Report Signed Patient: Shane Delgado EMR#: [id number] 535 : 1960cct:[id number] Age/Sex: 64 / MADM Date: 03/10/25 Loc: HO.XRAY Attending Dr: Patti Beth MD Ordering Physician: Patti Beth MD Date of Service: 03/10/25 Procedure(s): XR Foot Mark 3V Accession Number(s): [id number] cc: Patti Beth MD CLINICAL HISTORY: 64 yo M with pain tenderness on metatarsal, send to [facility] 3 view right foot 3 view left foot Comparison: None provided Findings: No fractures or dislocations. Mild degenerative changes bilaterally. No ankle effusion. No radiopaque foreign body. 1.8 cm right and 1.0 cm left Achilles tendon enthesophytes. 1.0 cm right and 1.1 cm left plantar tendon enthesophytes. IMPRESSION: 1. No acute fracture or dislocation. 2. Large bilateral calcaneal spurs. This document has been electronically signed by: Lillian Bustos DO on 03/10/2025 13:57:48 Dictated By: Lillian Bustos MD Signed By: <Electronically signed by Lillian Bustos MD in OV> 03/10/25 1359 DD/ 56 TD/TT: 03/10/251356 Shear Operator: Patti Beth MD IMG XR PROCEDURES Final Resul t * (ABNORMAL) POCT HGB A1C (03/07/2025 3:16 PM EDT) Hemoglobin A1C 6.2(A) 4.0 - 5.7 % Blood 03/07/2025 3:16 PM EDT Patti Beth MD POINT OF CARE TEST ENTER/EDIT ORDERABLES Final Result * POCT Glucose (03/07/2025 3:15 PM EDT) Glucose Blood, POC 139 60 - 200 mg/dL Blood Capillary blood specimen / Unknown 03/07/2025 3:15 PM EDT Patti Beth MD POINT OF CARE TEST ENTER/EDIT ORDERABLES Final Result * Albumin, Random Urine W/Creatinine (11/09/2024 8:30 AM EST) Creatinine, Urine 143.02 mg/dL [facility] Microalbumin Urine 29.0 mg/L [facility] Microalbum Creatinine Ratio Ur 20.2 <30 ug/mg cr [facility] Comment:Albumin/Creatinine R atio Reference Ranges: Normal: < 30 ug/mg creatinine Microalbuminuria: 30 - 300 ug/mg creatinineClinical Albuminuria: > 300 ug/mg creatinine Urine (Urine, Random) 11/09/2024 8:30 AM EST 11/09/2024 8:56 AM EST Lamar Kc MD LAB URINE ORDERABLES Final Re sult [facility] [address] [place] [phone] * Lipid Panel, Standard (11/08/2024 7:31 AM EST) Triglycerides 85 <150 mg/dL [facility] Comment:Desirable Triglyceri de: less than 150 mg/dLBorderline High Triglyceride 150-199 mg/dLHigh Triglyceride: 200-499 mg/dLVery High Triglyceride: greater than or equal to 5OO mg/dL Cholesterol 122 <200 mg/dL [facility] Comment:Desirable Cholestero l: less than 200 mg/dLBorderline High Cholesterol: 200-239 mg/dLHigh Cholesterol: greater than 239 mg/dL LDL Cholesterol Calculated 58 <100 mg/dL [facility] Comment:Desirable LDL: less than 100 mg/dLNear Optimal/Above Optimal LDL: 110- 129 mg/dLBorderline High LDL: 130-159 mg/dLHigh LDL: 160-189 mg/dLVery High LDL: greater than or equal to 190 mg/dL HDL Cholesterol 47 >40 mg/dL [facility] Comment:Desirable HDL: great er than 40 mg/dL Note: This HDL assay may give artificially low results in patients with liver disease. Blood Venous blood specimen / Unknown 11/08/2024 7:31 AM EST 11/08/2024 7:31 AM EST us Lamar Kc MD LAB BLOOD ORDERABLES Final Re sult [facility] [address] [place] [phone] * Cologuard?? colon cancer screening (06/16/2023 9:59 AM EDT) Cologuard Result Negative Negative 06/24/20 1:41 AM EDT [facility] (CLIA #:[id number]) Comment: NEGATIVE TEST RESULT. A negative Cologuard result indicates a low likelihood that a colorectal cancer (CRC) or advanced adenoma (adenomatous polyps with more advanced pre-malignant features) is present. The chance that a person with a negative Cologuard test has a colorectal cancer is less than 1 in 1500 (negative predictive value >99.9%) or has an advanced adenoma is less than 5.3% (negative predictive value 94.7%). These data are based on a prospective cross-sectional study of 10,000 individuals at average risk for colorectal cancer who were screened with both Cologuard and colonoscopy. (Leahta Hernandez, N Engl J Med 2014;370(14):6771-8696) The normal value (reference range) for this assay is negative. COLOGUARD RE-SCREENING RECOMMENDATION: Periodic colorectal cancer screening is an important part of preventive healthcare for asymptomatic individuals at average risk for colorectal cancer. Following a negative Cologuard result, the [place] [employer] Society and U.S. Multi-Society Task Force screening guidelines recommend a Cologuard re-screening interval of 3 years. References: [place] [employer] Guideline for Colorectal Cancer Screening: https://www.cancer.org/cancer/nftbv-azokvy-saeoof/qablwhqrl-xpadrvhtl-gmvkxvn/ac s-rec ommendations.html.; Valente DK, Vianey ARIAS, Jon LeeK, Colorectal Cancer Screening: Recommendations for Physicians and Patients from the U.S. Multi-Society Task Force on Colorectal Cancer Screening , Am J Gastroenterology 2017; 112:2724-7896. TEST DESCRIPTION: Composite algorithmic analysis of stool DNA-biomarkers with hemoglobin immunoassay. Quantitative values of individual biomarkers are not [...] Jones et al, N Engl J Med 2014;370(14):3728-5262.) Cologuard may produce a false negative or false positive result (no colorectal cancer or precancerous polyp present at colonoscopy follow up). A negative Cologuard test result does not guarantee the absence of CRC or advanced adenoma (pre-cancer). The current Cologuard screening interval is every 3 years. ([place] [employer] and U.S. Multi-Society Task Force). Cologuard performance data in a 10,000 patient pivotal study using colonoscopy as the reference method can be accessed at the following location: www.emoquo.[employer]/results. Additional description of the Cologuard test process, warnings and precautions can be found at www.cologuard.com. Stool specimen (specimen) 06/16/2023 9:59 AM EDT 06/17/2023 8:57 PM EDT Patti Beth MD LAB MOLECULAR DIAGNOSTICS ORD ERABLES Final Result Performing Organization Address [facility]/ZIP Co de Phone Number [employer] (CLIA #:[id number]) [address] [place] [address], * Hepatitis C Ab (05/01/2023 6:40 AM EDT) Hepatitis C Antibody Nonreactive Nonreactive [facility] Comment:Antibodies to HCV no t detected; does not exclude early acuteHCV infection. Blood 05/01/2023 6:40 AM EDT 05/01/2023 6:48 AM EDT Patti Beth MD LAB BLOOD ORDERABLES Final Re sult Performing Organization Address [facility] Co de Phone Number [facility] [address] [place] [phone] * HIV Ab/Ag ([place] [facility]) (05/01/2023 6:40 AM EDT) HIV AB/AG Nonreactive Nonreactive [facility] Comment:HIV-1 p24 Ag and/or HIV-1/HIV-2 Ab not detected.A test result that is nonreactive does not exclude thepossibility of exposure to or infection with HIV-1 and/orHIV-2. Nonreactive results in this assay for individualswith prior exposure to HIV-1 and/or HIV-2 may be due toantigen and antibody levels that are below the limit ofdetection of this assay.The [employer] Eight Arm Operator HIV Ag/Ab Combo assay result andsupplemental assay results should be interpreted inconjunction with the patient's clinical presentation,history and other laboratory results. If the results areinconsistent with clinical evidence, additional testing issuggested to confirm the result. 05/01/2023 6:40 AM EDT 05/01/2023 6:48 AM EDT us Patti Beth MD LAB BLOOD ORDERABLES Final Re sult [facility] [address] [place] [address] [phone] * HP Diabetic Foot Exam (04/27/2023) us Patti Beth MD HEALTH MAINTENANCE Final Resu lt from Last 3 Months or Most Recently Relevant to Health Maintenance Insurance [place] [id number] Care Teams Paper Coating Machine Operator Relationship Specialty Start Date End Date Patti Beth MD [address] [place] [phone] PCP - General Family Medicine 08/26/20
--- OUTSIDE RECORDS SUMMARY | 2025-05-19 07:34 | XMS_ITS | Encounter Summary ---
Author Organization [facility] Address [address] [place] [address] Phone Care Team Providers Care Transportation Agent Name Role Phone Pura Campos CNP Primary Care Provider Encounter Details Date Type Department Care Team ([facility] st Contact Info) Description 07/29/2020 Procedure Pass [facility], Ct Scan - [address] [address] Social History Tobacco Use Types Packs/Day Years Used Date Smoking Tobacco: Never Smokeless Tobacco: Never Alcohol Use Standard Drinks/Week Comments Never 0 (1 standard drink = 0.6 oz pur e alcohol) Sex and Gender Information Value Date Recorded Sex Assigned at Male 02/11/2019 7:09 PM EDT Legal Sex Male 9:47 PM EDT Gender Identity Male 02/11/2019 7:09 PM EDT Sexual Orientation Not on file documented as of this encounter Plan of Treatment Not on file documented as of this encounter Visit Diagnoses Not on filedocumented in this encounter Care Teams Transportation Agent Relationship Specialty Start Date End Date Pura Campos CNP [address] [place] [address] [address] [place] [address] PCP - General Family Medicine 07/29/20 documented as of this encounter Additional Source Comments The information contained in this document represents components of the legal health record. It is not the complete legal health record.[facility]
== END 2025-05-19 07:56 | disposition home or self-care (01) ==
LOC: HO.HUSH 07:31
PROVIDERS: PCP Family Medicine; Visit Provider Nurse Practitioner Family
DX: E29.1 Testicular hypofunction (principal); C61 Malignant neoplasm of prostate
CPT/HCPCS: 99213

== ENCOUNTER → 2025-05-19 07:31 | Outpatient (BNVA) | payer OTHER, SELFPAY | PROVIDERS: PCP Family Medicine; Visit Provider Nurse Practitioner Family | DX: E29.1 Testicular hypofunction (principal); C61 Malignant neoplasm of prostate; R97.21 Rising PSA following treatment for malignant neoplasm of prostate; Z13.89 Encounter for screening for other disorder ==

== ENCOUNTER 2025-08-05 07:23 | Outpatient (REF) | payer OTHER, SELFPAY ==
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
--- OUTSIDE RECORDS SUMMARY | 2020-07-29 14:14 | XMS_ITS | Encounter Summary ---
Author Organization [facility] Address [address] [place] [address] Phone Care Team Providers Care Specialty Sales Consultant Name Role Phone Pura Campos CNP Primary Care Provider [phone] Encounter Details Date Type Department Care Team (Late st Contact Info) Description 07/29/2020 2:14 PM [facility] Hospital Encounter [facility] [address] [place] [address] Alexei Boyer PA [address] [place] [address] [email or web address] Social History Tobacco Use Types Packs/Day [...] Name Priority Date/Time Associated Diagnosis Comments XR LUMBOSACRAL SPINE 2-3 VIEWS Urgent/patient waiting 07/29/2020 2:27 PM EST Lumbar strain, initial encounter documented in this encounter Results * XR LUMBOSACRAL SPINE 2-3 VIEWS (07/29/2020 2:27 PM EST) Anatomical Region Laterality Modality L-spine Radiographic Lynnette ging 07/29/2020 2:29 PM EST Impressions 07/29/2020 2:35 PM EST No evidence of acute fracture. Partially substantial anterior spondylosis at the lower lumbar spine, as described above. Narrative 07/29/2020 2:35 PM EST TECHNIQUE: XR LUMBOSACRAL SPINE 2-3 VIEWS COMPARISON: None CLINICAL HISTORY: Back pain FINDINGS: There are 5 lumbar-type vertebral bodies. Sacral arches are intact. There is no evidence of compression fracture. There is rather marked anterior spondylosis at the lower lumbar spine. Disc space height is fairly well-maintained. At the penultimate coccygeal element, that may be congenital nonfusion or prior trauma. This is of no clinical significance, however. At the reported site of pain, at L2-3 L4, vertebral body height is maintained and no fracture is identified. The pedicles are intact. Some facet arthropathy seems to be present at L4 3/L4 and L2/L3 on the left. Procedure Note Driss Miller MD - 07/29/2020 TECHNIQUE: XR LUMBOSACRAL SPINE 2-3 VIEWS COMPARISON: None CLINICAL HISTORY: Back pain FINDINGS: There are 5 lumbar-type vertebral bodies. Sacral arches are intact. Thereis no evidence of compression fracture. There is rather marked anteriorspondylosis at the lower lumbar spine. Disc space height is fairlywell-maintained. At the penultimate coccygeal element, that may becongenital nonfusion or prior trauma. This is of no clinical significance,however. At the reported site of pain, at L2-3 L4, vertebral body heightis maintained and no fracture is identified. The pedicles are intact. Somefacet arthropathy seems to be present at L4 3/L4 and L2/L3 on the left. IMPRESSION: No evidence of acute fracture. Partially substantial anterior spondylosisat the lower lumbar spine, as described above. Alexei PARRISH IMG XR SPINE Final Resul t documented in this encounter Visit Diagnoses Not on filedocumented in this encounter Care Teams Specialty Sales Consultant Relationship Specialty Start Date End Date Pura Campos CRACKER SPRAYER [email or web address] PCP - General Family Medicine 07/29/20 documented as of this encounter Additional Source Comments The information contained in this document represents components of the legal health record. It is not the complete legal health record.[facility]
--- OUTSIDE RECORDS SUMMARY | 2022-07-05 07:30 | XMS_ITS | Encounter Summary ---
Author Organization [facility] Address [address] [place] [address] Phone Care Team Providers Care Certified Mortician Name Role Phone Pura Campos CNP Primary Care Provider [phone] Encounter Details Date Type Department Care Team (Late st Contact Info) Description 07/05/2022 8:30 AM EDT Hospital Encounter [facility] [address] [place] [address] Nadege Winchester FNP [address] [place] [address] [email or web address] Social History Tobacco Use Types Packs/Day Years [...] Date/Time Associated Diagnosis Comments XR LUMBOSACRAL SPINE 4 OR MORE VIEWS Urgent/patient waiting 07/05/2022 8:40 AM EDT Lumbar strain, initial encounter documented in this encounter Results * XR LUMBOSACRAL SPINE 4 OR MORE VIEWS (07/05/2022 8:40 AM EDT) Anatomical Region Laterality Modality L-spine Computed Radiogr aphy 07/05/2022 9:13 AM EDT Impressions 07/05/2022 9:13 AM EDT No displaced fracture. Narrative 07/05/2022 9:13 AM EDT XR LUMBOSACRAL SPINE 4 OR MORE VIEWS COMPARISON: XR LUMBOSACRAL SPINE 2-3 VIEWS FINDINGS: 5 [id number] lumbar-type vertebral bodies. Preserved alignment. Vertebral bodies and disc space heights are preserved. Large anterior osteophytes at multiple levels. Facets are aligned. Procedure Note Micaela Eli MD - 07/05/2022 XR LUMBOSACRAL SPINE 4 OR MORE VIEWS COMPARISON: XR LUMBOSACRAL SPINE 2-3 VIEWS FINDINGS: 5 [id number] lumbar-type vertebral bodies. Preserved alignment.Vertebral bodies and disc space heights are preserved. Large anteriorosteophytes at multiple levels. Facets are aligned. IMPRESSION: No displaced fracture. Nadege Winchester EDI SPECIALIST IMG XR SPINE Final Resul t documented in this encounter Visit Diagnoses Not on filedocumented in this encounter Care Teams Certified Mortician Relationship Specialty Start Date End Date Pura Campos CNP [email or web address] PCP - General Family Medicine 07/29/20 documented as of this encounter Additional Source Comments The information contained in this document represents components of the legal health record. It is not the complete legal health record.[facility]
--- OUTSIDE RECORDS SUMMARY | 2025-08-05 07:26 | XMS_ITS | Encounter Summary ---
Author Organization [facility] Address [address] [place] [address] [address] [place] [address] Care Team Providers Care Construction Consultant Name Role Phone Patti Beth MD Primary Care Provider [phone] Reason for Visit * Reason Comments Med Refill Encounter Details Date Type Department Care Team ([facility] Contact Info) Description 11/17/2022 Refill [facility] CHC MED & PEDS [address] [place], [place] [phone] Patti Beth MD [address] [place] [address] Mixed hyperlipidemia (Primary Dx) Social History Tobacco [...] Primary documented in this encounter Care Teams Construction Consultant Relationship Specialty Start Date End Date Patti Beth MD [address] [place] [address] PCP - General Family Medicine 08/26/20 documented as of this encounter
--- OUTSIDE RECORDS SUMMARY | 2025-08-05 07:26 | XMS_ITS | Encounter Summary ---
Author Organization [facility] Address [address] [place] [address] 7 [place] [address] Care Team Providers Care [employer] Scout Name Role Phone Patti Beth MD Primary Care Provider [phone] Encounter Details Date Type Department Care Team ([facility] st Contact Info) Description 01/16/2023 Orders Only [facility] CHC MED & PEDS [address] [place], [place] [phone] Elizabeth Rodriguez MD [address] [place] [address] Closed fracture of malleolus of right ankle, [...] Primary documented in this encounter Care Teams [employer] Scout Relationship Specialty Start Date End Date Patti Beth MD [address] [place] [phone] PCP - General Family Medicine 08/26/20 documented as of this encounter
--- OUTSIDE RECORDS SUMMARY | 2025-08-05 07:26 | XMS_ITS | Clinical Summary ---
Author Organization [address] [place] [address] Address [address] [place] [address] Phone Care Team Providers Care Loan Officer Assistant Name Role Phone Patti Beth MD Primary Care Provider [phone] Allergies Active Allergy Reactions Criticality Noted Date Comments Atorvastatin Dizziness 01/08/2021 Penicillins Hives,Other 06/03/2025 Other reaction(s): unspecified Medications glucose blood test strip DIRECTED TO TEST BLOOD SUGAR TWICE DAILY 5 Active celecoxib (CeleBREX) 200 mg capsule Take 1 capsule (200 mg total) by mouth 2 times daily. 5 Active cholecalciferol (VITAMIN D-3) 50 mcg (2,000 unit) tablet Take 1 tablet (2,000 Units total) by mouth 1 (one) time each day in the morning. 4 Active cyclobenzaprine (FLEXERIL) 10 mg tablet Take 1 tablet (10 mg total) by mouth 3 times daily as needed. 2 Active diclofenac (VOLTAREN) 1 % topical gel APPLY 2 GRAM TO THE AFFECTED AREA FOUR TIMES DAILY 2 Active diphenhydrAMINE (BENADRYL) 25 mg tablet Take 1 tablet (25 mg total) by mouth once daily as needed. 5 Active Trulicity 0.75 mg/0.5 mL pen injector injection Inject 0.5 mL (0.75 mg total) under the skin every 7 (seven) days. Active lisinopriL (PRINIVIL,ZESTR IL) 20 mg tablet TAKE 1 TABLET(20 MG) BY MOUTH IN THE MORNING 5 Active LORazepam (ATIVAN) 0.5 mg tablet TAKE 1 TABLET BY MOUTH AT BEDTIME NEEDED FOR ANXIETY OR INSOMNIA Active metFORMIN (GLUCOPHAGE) 500 mg tablet TAKE 1 TABLET(500 MG) BY MOUTH IN THE MORNING 0 Active pantoprazole (PROTONIX) 20 mg EC tablet Take 1 tablet (20 mg total) by mouth 1 (one) time each day. Active predniSONE (DELTASONE) 20 mg tablet 5 Active QUEtiapine (SEROquel) 50 mg tablet Take 1 tablet (50 mg total) by mouth. at bedtime. Active rosuvastatin (CRESTOR) 10 mg tablet Take 1 tablet (10 mg total) by mouth 1 (one) time each day. Active terazosin (HYTRIN) 5 mg capsule Take 1 capsule (5 mg total) by mouth at bedtime. 4 Active testosterone 20.25 mg/1.25 gram (1.62 %) gel in metered-dose pump 3 Active amLODIPine (NORVASC) 10 mg tablet 5 Active diclofenac (Voltaren Arthritis Pain) 1 % topical gel Apply 4 g topically 2 (two) times a day. 240 g 1 5 08/02/20 25 Encounters Date Type Department Care Team Description 07/08/2025 8:30 AM EDT Office Visit Orthopedic Surgery [facility] [address] [place] [phone] Adal Henley DPM Diabetic mononeuropathy simplex (CMS/[facility] V24, CMS/[facility] V28) (Primary Dx); Dermatophytosis of nail 06/03/2025 8:45 AM EDT Consult Orthopedic [facility] [address] [place] [phone] Adal Henley DPM Diabetic mononeuropathy simplex (CMS/HCC V24, CMS/HCC V28) (Primary Dx); Other specified disorders of bone, ankle and foot from Last 3 Months Social History Tobacco Use Types Packs/Day Years Used Date Smoking Tobacco: Never Assessed Sex and Gender Information Value Date Recorded Sex Assigned at Not on file Legal Sex Male 6:17 PM EST Gender Identity Not on file Sexual Orientation Not on file Plan of Treatment Upcoming Encounters Date Type Department Care Team (Late st Contact Info) Description 10/08/2025 8:30 AM EST Office Visit Orthopedic Surgery - [facility] [address] [phone] Adal Henley, DPM [address] [phone] Health Maintenance Due Date Last Done Comments Diabetes: Annual GFR (Glomerular Filtration Rate) 1961 Diabetes: Annual Foot Exam 1971 Diabetes: Annual Retina Eye Exam 1971 RSV Immunization Adult Patients (1 - Risk 50-74 years 1-dose series) 2011 Zoster Vaccines (1 of 2) 2011 Pneumococcal Vaccine: 50+ Years (2 of 2 - PCV) 06/18/2013 06/18/2012 Hepatitis B Vaccines (2 of 3 - 19+ 3-dose series) 08/14/2017 07/17/2017 Depression Screening 09/11/2024 HIV Screening 03/29/2025 Hepatitis C Screening 03/29/2025 Social Influencers of Health Screening 03/29/2025 COVID-19 Vaccine (3 - 2024-2 6 season) 2025 06/05/2021, 05/15/2021 Influenza Vaccine (#1) 2025 7, 06/18/2012 Diabetes: Annual Urine Albumin-Creatinine Ratio (uACR) 06/03/2025 Hypertension/CHF/CAD Annual BMP Blood Test 06/03/2025 Diabetes: Blood Sugar Contro l Test (HGBA1C) 09/06/2025 03/07/2025 Colorectal Cancer Screening: FIT-DNA (Cologuard) 06/16/2026 06/16/2023 Cholesterol Screening (Lipid Panel) 11/08/2029 11/08/2024 DTaP,Tdap,and Td Vaccines (4 - Td or Tdap) 07/25/2032 07/25/2022, 02/02/2022, 06/18/2012 HIB Vaccines Aged Out No longer eligi [...] to complete this topic RSV Immunization Patients Under 20 months Aged Out No longer eligible b ased on patient's age to complete this topic Varicella Vaccines Aged Out No longer eligible based on patient's age to complete this topic Insurance Member Subscriber Plan / Payer (Ef fective 2014-Present) Name:SHANE BARTLETT Relation to Subscriber:Self Name:Shane Bartlett Payer ID:[id number] Group ID:[id number] Type:Not on file Address: [place] [address] [place] [id number] Care Teams Loan Officer Assistant Relationship Specialty Start Date End Date Patti Beth MD [address] [place] [address] PCP - General Family Medicine 03/11/25
--- OUTSIDE RECORDS SUMMARY | 2025-08-05 07:26 | XMS_ITS | Encounter Summary ---
Author Organization [facility] Address [address] [place] [phone] Phone Care Team Providers Care Marketing Manager Name Role Phone Pura Campos CNP Primary Care Provider Encounter Details Date Type Department Care Team (Late st Contact Info) Description 07/29/2020 Procedure Pass [facility], Ct Scan - [address] [address] Social History Tobacco Use Types Packs/Day Years [...] on filedocumented in this encounter Care Teams Marketing Manager Relationship Specialty Start Date End Date Pura Campos CNP [email or web address] PCP - General Family Medicine 07/29/20 documented as of this encounter Additional Source Comments The information contained in this document represents components of the legal health record. It is not the complete legal health record.[facility]
--- OUTSIDE RECORDS SUMMARY | 2025-08-05 07:26 | XMS_ITS | Clinical Summary ---
Author Organization [facility] Address [address] [facility] [address] [place] [phone] Phone Care Team Providers Care Construction Superintendent Name Role Phone Pura Campos CNP Primary [...] T PO BID WITH THE MORNING AND ILA MEAL 0 Active tamsulosin (FLOMAX) 0.4 mg [...] 02/11/2019, 05/08/2012 POTASSIUM LEVEL 02/12/2020 02/11/2019, 05/08/2012 INFLUENZA VACCINE (#1) 2025 7, 06/18/2012 COVID-19 [...] Date/Time Associated Diagnosis Comments BASIC METABOLIC PANEL (BMP) STAT 02/11/2019 7:27 PM EDT from Last 3 Months or Most Recently Relevant to Health Maintenance Results * (ABNORMAL) Basic metabolic panel (02/11/2019 7:27 PM EDT) SODIUM 140 133 - 146 mmol/L [facility] CHLORIDE 99 96 - 108 mmol/L [facility] POTASSIUM 4.2 3.3 - 5.1 mmol/L [facility] CO2 30 21 - 35 mmol/L [facility] BUN 13 6 - 19 mg/dL [facility] CREATININE 0.70 0.5 - 1.5 mg/dL [facility] GLUCOSE 138(H) 70 - 99 mg/dL [facility] CALCIUM 9.9 8.4 - 10.3 mg/dL [facility] EGFR 105 >59 mL/min/1.7 3m2 [facility] Comment:If patient is black, multiply result by 1.159. Estimated glomerular filtration rate calculated using the CKD-EPI equation. ANION GAP 15 10 - 20 mmol/L [facility] Blood 02/11/2019 7:27 PM EDT 02/11/2019 7:39 PM EDT us Irene De Dios PHONE REPRESENTATIVE LAB BLOOD BKR ORDERABLES Final Result Performing Organization Address City/State/[facility] Co de Phone Number [address] [phone] from Last 3 Months or Most Recently Relevant to Health Maintenance Insurance MEDICARE REPLACEMENT [employer] [place] [id number] CARE MEDICARE REPLACEMENT MEDICARE REPLACEMENT MEDICARE REPLACEMENT MEDICARE REPLACEMENT MEDICARE REPLACEMENT [facility] CARE MEDICARE REPLACEMENT [employer] [facility] MEDICARE REPLACEMENT [employer] Care Teams Construction Superintendent Relationship Specialty Start Date End Date Pura Campos CNP [email or web address] PCP - General Family Medicine 07/29/20 Additional Source Comments The information contained in this document represents components of the legal health record. It is not the complete legal health record.[facility]
--- OUTSIDE RECORDS SUMMARY | 2025-08-05 07:26 | XMS_ITS | Encounter Summary ---
Author Organization [employer] [employer] Address [address] [facility] [address] [place] [address] Care Team Providers Care Radio Equipment Repairer Name Role Phone Patti Beth MD Primary Care Provider [phone] Encounter Details Date Type Department Care Team ([facility] st Contact Info) Description 05/06/2024 Orders Only [facility] CHC MED & PEDS [address] [place] [address] Provider, MD Vladimir Social History Tobacco Use [...] documented as of this encounter Care Teams Radio Equipment Repairer Relationship Specialty Start Date End Date Patti Beth MD [address] [place] [address] PCP - General Family Medicine 08/26/20 documented as of this encounter
--- OUTSIDE RECORDS SUMMARY | 2025-08-05 07:26 | XMS_ITS | Clinical Summary ---
Author Organization [employer] Address [address] [place] [address] [address] [place] [address] Care Team Providers Care Automatic Profile Shaper Operator Name Role Phone Patti Beth MD Primary Care Provider [phone] Allergies Active Allergy Reactions Criticality Noted Date [...] needed at bedtime. 023 Active BD Disp [place] 18G X 1-09/12 misc USE DIRECTED TO [...] 2 diabetes mellitus with hyperglycemia, unspecified whether long term care social worker insulin use (HCC) TAKE 1 TABLET(500 MG) BY MOUTH IN THE MORNING 90 tablet 1 024 Active cholecalciferol VITAMIN D (Vitamin D-3) 50 MCG (1999 UT) tablet TAKE 1 TABLET BY MOUTH EVERY MORNING 120 tablet 4 024 Active ketoconazole (NIZOral) 2 % cream APPLY [...] mg by mouth at bedtime. 024 Active pantoprazole (ProtoNix) 20 MG EC tabletIndications :Gastroesophageal reflux disease, unspecified whether esophagitis present TAKE 1 TABLET BY MOUTH EVERY DAY 90 tablet 1 025 Active cholecalciferol (Vitamin D-3) 50 MCG (1999 UT) tablet TAKE 1 TABLET BY MOUTH EVERY MORNING 120 tablet 4 025 Active FREESTYLE LITE test stripIndications: Type 2 diabetes mellitus without complication, without long-term current use of insulin (HCC) DIRECTED TO TEST BLOOD SUGAR TWICE DAILY 100 strip 5 025 Active diphenhydrAMINE (BENADryl) 25 MG tablet Take 1 tablet (25 mg) by mouth if needed at bedtime for itching. 30 tablet 025 Active rosuvastatin (Crestor) 10 MG tabletIndications :Mixed hyperlipidemia TAKE 1 TABLET BY MOUTH EVERY DAY 90 tablet 1 025 Active celecoxib (CeleBREX) 200 MG capsule TAKE 1 CAPSULE(200 MG) BY MOUTH TWICE DAILY 60 capsule 2 025 Active Trulicity 0.75 MG/0.5ML solution auto-injector ADMINISTER 0.75 MG UNDER THE SKIN 1 TIME EVERY WEEK 2 mL 5 025 Active amLODIPine (Norvasc) 10 MG tabletIndications :Hypertension, unspecified type TAKE 1 TABLET(10 MG) BY MOUTH IN THE MORNING 90 tablet 1 11/19/2 025 Active Dulaglutide (Trulicity) 0.75 MG/0.5ML solution auto-injector Inject 0.75 mg under the skin 1 (one) time per week. 2 mL 5 025 2024 Discontinued amLODIPine (Norvasc) 10 MG tabletIndications :Hypertension, unspecified [...] - Order foot X-ray - Refer to wildland firefighter - Follow up in 3 months for [...] diabetes mellitus wit h hyperglycemia, unspecified whether alf insulin use 09/19/2023 Assessment & Plan (09/19/2023 [...] 05/23/2016 Hyperlipidemia 05/21/2013 Malignant tumor of prostate ([facility]/HCC) 03/13/2012 Backache 01/26/2012 Assessment & Plan (03/10/2025 [...] Encounters Date Type Department Care Team Description 07/30/2025 Refill [facility] [address] [place] [address] Lamar Kc MD Hypertension, unspecified type 07/07/2025 Refill [facility] [address] [place] [address] Huy Key MD 06/18/2025 Refill [facility] [address] [place] [address] Patti Beth MD 05/13/2025 10:00 AM EDT Office Visit [facility] [address] [place] [address] Chacha Elaine MD Poison simon dermatitis (Primary Dx) 05/13/2025 Refill [facility] [address] [place] [address] Patti Beth MD Mixed hyperlipidemia 05/13/2025 Travel 05/12/2025 Refill [facility] [address] [place] [address] Patti Beth MD Type 2 diabetes mellitus without complication, without long-term current use of insulin ([facility]) 05/06/2025 Telephone [facility] [address] [place] [address] Patti Beth MD Med Refill from Last 3 Months Immunizations Immunization Administration [...] history exists FOBT 06/16/2024 06/16/2023 COVID-19 Vaccine ( season) 2025 06/05/2021, 05/15/2021 Influenza Vaccine (#1) 2025 07/17/2017, 2011 Diabetes: Hemoglobin A1C 09/06/2025 025, 11/06/2024, 04/23/2024, Additional history exists Alcohol/Substance Use Screening 11/06/2025 11/06/2024 Depression Screening 11/06/2025 11/06/2024, 11/06/19 SDOH Screening 11/06/2025 11/06/2024 Lipid Panel 11/08/2025 11/08/2024, 08/2 09/2022, 08/25/2020 Diabetes: Urine Protein Screening 11/09/2025 11/09/2024, [...] Name Priority Date/Time Associated Diagnosis Comments POCT GLYCATED HEMOGLOBIN, TOTAL Routine 03/07/2025 3:16 [...] to Health Maintenance Results * (ABNORMAL) POCT HGB A1C (03/07/2025 3:16 PM EDT) Hemoglobin A1C 6.2(A) 4.0 - 5.7 % Blood 03/07/2025 3:16 PM EDT us Patti Beth MD POINT OF CARE TEST ENTER/EDIT ORDERABLES Final Result * Albumin, Random Urine W/Creatinine (11/09/2024 8:30 AM EST) Creatinine, Urine 143.02 mg/dL [facility] Microalbumin Urine 29.0 mg/L [facility] Microalbum Creatinine Ratio Ur 20.2 <30 ug/mg cr [facility] Comment:Albumin/Creatinine R atio Reference Ranges: Normal: < 30 ug/mg creatinine Microalbuminuria: 30 - 300 ug/mg creatinineClinical Albuminuria: > 300 ug/mg creatinine Urine (Urine, Random) 11/09/2024 8:30 AM EST 11/09/2024 8:56 AM EST us Lamar Kc MD LAB URINE ORDERABLES Final Re sult Performing Organization Address City/State/[facility] Co de Phone Number [facility] [address] [place] [phone] * Lipid Panel, Standard (11/08/2024 7:31 AM EST) Triglycerides 85 <150 mg/dL [facility] Comment:Desirable Triglyceri de: less than 150 mg/dLBorderline High Triglyceride 150-199 mg/dLHigh Triglyceride: 200-499 mg/dLVery High Triglyceride: greater than or equal to 5OO mg/dL Cholesterol 122 <200 mg/dL [facility] Comment:Desirable Cholestero l: less than 200 mg/dLBorderline High Cholesterol: 200-239 mg/dLHigh Cholesterol: greater than 239 mg/dL LDL Cholesterol Calculated 58 <100 mg/dL [facility] Comment:Desirable LDL: less than 100 mg/dLNear Optimal/Above Optimal LDL: 110- 129 mg/dLBorderline High LDL: 130-159 mg/dLHigh LDL: 160-189 mg/dLVery High LDL: greater than or equal to 190 mg/dL HDL Cholesterol 47 >40 mg/dL [facility] Comment:Desirable HDL: great er than 40 mg/dL Note: This HDL assay may give artificially low results in patients with liver disease. Blood Venous blood specimen / Unknown 11/08/2024 7:31 AM EST 11/08/2024 7:31 AM EST us Lamar Kc MD LAB BLOOD ORDERABLES Final Re sult [facility] [address] [place] [phone] * Cologuard?? colon cancer screening (06/16/2023 9:59 AM EDT) Cologuard Result Negative Negative 06/24/20 1:41 AM EDT [facility] (CLIA #:[id number]) Comment: NEGATIVE TEST RESULT. A negative Cologuard [...] Jones et al, N Engl J Med 2014;370(14):0994-7199) The normal value (reference range) for this assay is negative. COLOGUARD RE-SCREENING RECOMMENDATION: Periodic colorectal cancer screening is an important part of preventive healthcare for asymptomatic individuals at average risk for colorectal cancer. Following a negative Cologuard result, the [place] Cancer Society and U.S. Multi-Society Task Force screening guidelines recommend a Cologuard re-screening interval of 3 years. References: [place] Cancer Society Guideline for Colorectal Cancer Screening: https://www.cancer.org/cancer/utyqg-bewmxy-nxewpj/pxlbsgddc-bcoggexhx-empedoe/ac s-rec ommendations.html.; Valente DK, Vianey CR, Jon LeeK, Colorectal Cancer Screening: Recommendations for Physicians and Patients from the U.S. Multi-Society Task Force on Colorectal Cancer Screening , Am J Gastroenterology 2017; 112:1740-5390. TEST DESCRIPTION: Composite algorithmic analysis of stool [...] screened with both Cologuard and colonoscopy. (Leatha Swain. et al, N Engl J Med 2014;370(14):4081-7284.) Cologuard may produce a false negative or false positive result (no colorectal cancer or precancerous polyp present at colonoscopy follow up). A negative Cologuard test result does not guarantee the absence of CRC or advanced adenoma (pre-cancer). The current Cologuard screening interval is every 3 years. ([employer] Cancer Society and U.S. Multi-Society Task Force). Cologuard performance data in a 10,000 patient pivotal study using colonoscopy as the reference method can be accessed at the following location: www.GROUNDFLOOR.com/results. Additional description of the Cologuard test process, warnings and precautions can be found at [email or web address]. Stool specimen (specimen) 06/16/2023 9:59 AM EDT 06/17/2023 8:57 PM EDT us Patti Beth MD LAB MOLECULAR DIAGNOSTICS ORD ERABLES Final Result Performing Organization Address [facility] Co de Phone Number [facility] (CLIA #:[id number]) [address] [place] [address], * Hepatitis C Ab (05/01/2023 6:40 AM EDT) Hepatitis C Antibody Nonreactive Nonreactive [facility] Comment:Antibodies to HCV no t detected; does not exclude early acuteHCV infection. Blood 05/01/2023 6:40 AM EDT 05/01/2023 6:48 AM EDT Patti Beth MD LAB BLOOD ORDERABLES Final Re sult Performing Organization Address [facility] de Phone Number [facility] [address] [place] [phone] * HIV Ab/Ag ([facility]) (05/01/2023 6:40 AM EDT) HIV AB/AG Nonreactive Nonreactive [facility] Comment:HIV-1 p24 Ag and/or HIV-1/HIV-2 Ab not detected.A test result that is nonreactive does not exclude thepossibility of exposure to or infection with HIV-1 and/orHIV-2. Nonreactive results in this assay for individualswith prior exposure to HIV-1 and/or HIV-2 may be due toantigen and antibody levels that are below the limit ofdetection of this assay.The [employer]ant HIV Ag/Ab Combo assay result andsupplemental assay results should be interpreted inconjunction with the patient's clinical presentation,history and other laboratory results. If the results areinconsistent with clinical evidence, additional testing issuggested to confirm the result. 05/01/2023 6:40 AM EDT 05/01/2023 6:48 AM EDT Patti Beth MD LAB BLOOD ORDERABLES Final Re sult Performing Organization Address [facility] Co de Phone Number [facility] [address] [place] [phone] * HP Diabetic Foot Exam (04/27/2023) us Patti Beth MD HEALTH MAINTENANCE Final Resu lt from Last 3 Months or Most Recently Relevant to Health Maintenance Insurance [place] [id number] Care Teams Automatic Profile Shaper Operator Relationship Specialty Start Date End Date Patti Beth MD [address] [place] [phone] PCP - General Family Medicine 08/26/20
[2025-08-05 08:17] LABS: Hematocrit 44.9 % (42.0-52.0); Hemoglobin 15.1 g/dl (14.0-18.0); Mean Corpuscular HGB Conc 33.6 g/dl (31.0-36.0); Mean Corpuscular Hemoglobin 29.8 pg (27.0-33.0); Mean Corpuscular Volume 88.7 fL (80.0-98.0); NRBC Abs Auto 0.000 X10*3/uL (0.0-0.012); NRBC Pct Auto 0.0 /100WBC (0.0-0.2); Platelet Count 286 X10*3/uL (160-400); Red Blood Count 5.06 X10*6/uL (4.60-5.80); White Blood Count 7.1 X10*3/uL (4.8-10.8)
[2025-08-05 09:07] LABS: Prostate Specific Antigen 0.69 ng/mL (<0.05-4.0)
[2025-08-12 03:53] LABS: Testosterone, Free 182.1 pg/mL (35.0-155.0)
== END 2025-08-05 07:24 | disposition home or self-care (01) ==
LOC: HO.LAB 07:23
PROVIDERS: PCP Family Medicine; Visit Provider Nurse Practitioner Family
DX: C61 Malignant neoplasm of prostate (principal); E29.1 Testicular hypofunction; Z12.5 Encounter for screening for malignant neoplasm of prostate
CPT/HCPCS: 36415; 84153; 84402; 84403; 85027

== ENCOUNTER 2025-08-18 08:48 | Outpatient (AMB) | payer OTHER, SELFPAY ==
--- NOTE | 2025-08-18 08:51 | A.OFFVIS_ITS ---
Intake Visit Reasons: 3M/labs/UA SET Intake Note: Patient presents today for follow up on: prostate cancer, hypogonadism, and lab results Labs done : 08/05/25: Total Testosterone: 906; Free testosterone: 182.1, PSA: 0.69 Urology Medication:Testosterone, Terazosin Antibiotic Allergy:PENICILLIN Blood Thinner:NONE Park Services Specialist Required: No Accompanied by: Self / Same As Patient Allergies Penicillins (PENICILLINS) Allergy (Severe, Verified 08/18/25 09:36) RASH Medication List - Last Reconciled 08/18/25 by TERENCE Mckeon-HALLE alcohol swabs (BD Alcohol Swabs) 0 pad topical amlodipine 10 mg PO DAILY blood sugar diagnostic As directed celecoxib 100 mg PO BID cholecalciferol (vitamin D3) (Vitamin D3) 50 mcg PO DAILY clotrimazole 1% appl topical BID dulaglutide (Trulicity) mg subcut ketoconazole 2% appl topical lancets As directed lisinopril 20 mg PO DAILY lorazepam 0.5 mg PO BEDTIME PRN metformin 500 mg PO montelukast 10 mg PO DAILY pantoprazole 20 mg PO DAILY quetiapine 50 mg PO BEDTIME rosuvastatin 10 mg PO DAILY safety needles As directed-draw up needle terazosin 5 mg PO BEDTIME 90 days testosterone 3 pumps topical DAILY 30 days HPI Comments Details: Shane is a pleasant 65 year old male patient of Dr. Beth. He has a p ast medical history of hyperlipidemia, hypertension, type 2 diabetes, atherosclerotic cardiovascular disease, hypogonadism, and prostate cancer. He presents to the office today for follow-up of his hypogonadism, prostate cancer and lower urinary tract symptoms. In discussion with the patient today he reports to be doing and feeling well. He reports compliance with testosterone and terazosin as prescribed. He denies having had any bothersome urinary issues or concerns since his last office visit. Most recent labs reviewed with the patient today as noted and trended below. We did discuss increase in testosterone levels. During last office visit testosterone was noted to be borderline low and recommendations were made for increase in testosterone therapy to 3 pumps per day. He reports fatigue he had been experiencing has improved. He denies urinary urgency, urinary frequency, incontinence, nocturia, hematuria, dysuria, foul smelling urine, changes to urinary stream, flank pain, fever, and or chills. He is happy with his current voiding parameters. He otherwise offers no other issues or concerns at this time. Prostate cancer Initial diagnosis 2014 Initial therapy external beam radiation Remained at low testosterone following therapy PSA/Testosterone levels: 02/28 0.7, 03/31 0.5, 08/31 0.8, 03/02 T 136 P 0.7, 09/01 T 1540 P 1.2, 03/03 T 1903 P 0.8, 04/02 T 65, 06/03 T 224 P 0.4, 10/04 T 264, 01/02 0.4, 01/02 T 429, 08/04 PSA 0.4 T 420, 02/02 PSA 0.6 T 314, 05/05 PSA 0.5, T 466, 08/05 PSA 0.7 T 906 CBC: -H/H 10/04 14.6 & 43.4, 01/02 15.1 & 44.4, 08/04 14.7/43.8, 02/02 15.0/45.2, 05/05 14.5/42.6, 08/05 15.1/44.9 Continues with low PSA. This suitable candidate for testosterone replacement Hypogonadism Diagnosed following radiation therapy Initial therapy testosterone injections [facility] Medical History (Updated 02/17/25 @ 09:07 by Holly Delaney [facility]) Hypogonadism in male Other and unspecified hyperlipidemia Type 2 diabetes mellitus with unspecified complications Perianal cyst HTN (hypertension) Arthritis Hypogonadism in male Carpal tunnel syndrome Dysphasia Colon cancer screening Rectal pain Prostate cancer Bladder outlet obstruction Erectile dysfunction Surgical History History of surgery History of tympanoplasty Hx of carpal tunnel repair Family History Father Prostate cancer Mother Uterine cancer Paternal Grandfather Lung cancer Paternal Grandmother Breast cancer Maternal Grandfather Brain cancer Maternal Grandmother Throat cancer HTN (hypertension) Social History Alcohol intake: never Patient Tobacco Use Status: Never used Tobacco Current occupational status: employed Current occupation: security /left hand Review of Systems Const Reports as per HPI Eyes Reports no additional complaints ENT Reports no additional complaints Card Reports as per HPI Resp Reports no additional complaints GI Reports no additional complaints Reports as per HPI Musc Reports no additional complaints Neuro Reports no additional complaints Psych Reports no additional complaints Endo Reports as per HPI Mike/Lymph Reports no additional complaints Aller/Immun Reports no additional complaints Physical Exam Const General: cooperative, healthy appearing, comfortable, no acute distress, well developed, alert and awake Orientation/consciousness: patient oriented x3 Limitations: no limitations HEENT Head: Yes normal to inspection, Yes normocephalic and Yes atraumatic Ears: hearing grossly normal bilaterally Eyes General: appearance normal, both eyes and all related structures Neck Neck: Yes normal visual inspection and Yes trachea midline Chest Chest palpation & inspection: normal inspection of the chest Resp Effort & Inspection: normal respiratory effort and able to speak in complete sentences Cardio Rate: regular rate GI Inspection: Yes normal to inspection General: Yes no CVA tenderness Back/Spine/Pelvis Back: no CVA tenderness Skin General skin exam: no rashes or lesions noted Neuro General: patient oriented x3 Extrem General: Yes normal to inspection Psych Appearance: grossly normal and well kempt Mental Status: mental status grossly normal Speech and movement: Clear speech present Affect: normal affect Attitude: cooperative Thought process: Normal thought process present Thought content: Normal thought content present Insight: Fair insight present (Psych) Judgement: Fair judgement present (Psych) Assessment & Plan Assessment & Plan (1) Hypogonadism in male: Code(s): E29.1 - Testicular hypofunction Category: Medical (2) Prostate cancer: Code(s): C61 - Malignant neoplasm of prostate Category: Medical (3) Urinary hesitancy due to benign prostatic hyperplasia: Code(s): N40.1 - Benign prostatic hyperplasia with lower urinary tract symptoms; R39.11 - Hesitancy of micturition Category: Medical Plan Unable to obtain urine for urinalysis as patient unable to void Patient reports be happy with current voiding parameters on 5 mg of terazosin; will continue. Patient currently denies any bothersome urinary issues or concerns. Will continue with surveillance monitoring of PSA, CBC, testosterone free and total for history of hypogonadism as well as prostate cancer. Continue testosterone therapy as discussed and prescribed; refill provided discussed decreasing dose. All questions were answered. Will obtain PSA, CBC, testosterone free and total in 3 months. Follow-up in 3 months with labs to be completed prior; or sooner with any issues, concerns, and or questions. Orders: Orders Testosterone, Free/Total 3 Months C61 - Malignant neoplasm of prostate, E29.1 - Testicular hypofunction Complete Blood Count no Diff 3 Months E29.1 - Testicular hypofunction Prostate Specific Antigen 3 Months C61 - Malignant neoplasm of prostate, E29.1 - Testicular hypofunction, N40.1 - Benign prostatic hyperplasia with lower urinary tract symptoms, R39.11 - Hesitancy of micturition Patient Instructions: The patient had an opportunity to ask questions regarding the treatment plan. All questions were answered. Physical exam, labs, and imaging were discussed and reviewed in detail. As well as risks, benefits, and discussion of treatment choices. No major barriers to understanding were identified. The patient expressed understanding and agreement with the above treatment plan. The patient was made aware they should contact our office by phone for worsening of their current condition, the appearance of new symptoms, or with any questions or concerns. Compliance is encouraged with any medications and follow up testing that is ordered. It is a privilege to be allowed the opportunity to participate in? your urological care.? Again, if you have any questions or concerns If you have any questions or concerns please do not hesitate to contact me. The office is [phone]. This note is constructed using voice recognition software. While every effort has been made to ensure accuracy wet roller errors may have been included. Yours sincerely, PACO Mckeon Coding Level of Care Code Est Pt Level 3 (85728) Complex visit Add On G2211 Diagnoses Hypogonadism in male E29.1 Prostate cancer C61 Urinary hesitancy due to benign prostatic hyperplasia N40.1; R39.11
== END 2025-08-18 09:12 | disposition home or self-care (01) ==
LOC: HO.HUSH 08:49
PROVIDERS: PCP Family Medicine; Visit Provider Nurse Practitioner Family
DX: E29.1 Testicular hypofunction (principal); C61 Malignant neoplasm of prostate; N40.1 Benign prostatic hyperplasia with lower urinary tract symptoms; R39.11 Hesitancy of micturition
CPT/HCPCS: 99213; G2211

== ENCOUNTER → 2025-08-18 08:48 | Outpatient (BNVA) | payer OTHER, SELFPAY | PROVIDERS: PCP Family Medicine; Visit Provider Nurse Practitioner Family | DX: E29.1 Testicular hypofunction (principal); C61 Malignant neoplasm of prostate; N40.1 Benign prostatic hyperplasia with lower urinary tract symptoms; R39.11 Hesitancy of micturition | CPT/HCPCS: 99212 ==